=== PATIENT | male | born 1965 | race Caucasian/White ===

== ENCOUNTER 2016-12-07 16:06 | Emergency (ER) | payer OTHER ==
[~2016-12-07] VITALS: Ht 180.3 cm; Wt 102.8 kg
[2016-12-07 16:18] VITALS: TEMP 36.9; Ht 180.3 cm; Wt 102.8 kg
[2016-12-07] MEDS ORDERED: KETOROLAC TROMETHAMINE 60 MG/2 ML VIAL IM STA (16:57)
[2016-12-07] MEDS ORDERED: GLC500 PO (17:27)
--- NOTE | 2016-12-07 17:41 | EMERGENCY ROOM VISIT NOTE ---
ED Visit Note First contact with patient: 16:41 CHIEF COMPLAINT: Sciatica left side HISTORY OF PRESENT ILLNESS: This 51-year-old male patient presents to the emergency department, ambulatory, complaining of pain in the low back which began 3.5 months ago. The pain was gradual in onset, is now constant and worse with movement. The patient states the pain got very severe at that time and he was seen by his PCP and started on prednisone and physical therapy. He states he went to physical therapy for approximately 2 months, but was released because his pain was improving. He states he was feeling well and improving, however he continued to feel tightness in his back which is worse with lying flat. He states he has been normally sleeping in a recliner due to the decrease in his pain in that position. Over the past 2 days, the patient states he is feeling okay, so he moved into the bed in the middle the night. He states at that time, his pain began worsening. He does have an appointment scheduled for with his PCP. His PCP did state that if his symptoms do not get better, he may need to have an MRI performed. The patient describes the pain as constant, worse with position changes. He states it does shoot down the left leg and he has some numbness and tingling down the back of the leg. The pain has been worse and more constant than it was previously, however this is similar to previous pain he has had. He rates the pain 7/10. The patient has taken naproxen twice daily without relief of the pain. The patient denies any loss of control of their bowel or bladder functions. There has been no leg weakness, and no change in sensation. No nausea or vomiting or abdominal pain. No chest pain or shortness of breath. The patient has not had prior back injuries. No dysuria or increased urinary frequency. REVIEW OF SYSTEMS: A review of systems was performed with positives and pertinent negatives listed in the history of present illness. All other systems were reviewed and are negative. ALLERGIES: None MEDICATIONS: Metformin PMH: Diabetes SOCIAL HISTORY: The patient lives locally with family. He denies drug, alcohol , tobacco use. PHYSICAL EXAM: VITALS: Vitals are noted on the nurse's note and reviewed by myself. Vital signs stable. GENERAL: This is a 51-year-old white male, in no acute distress, nondiaphoretic , well-developed well-nourished. SKIN: The skin was without rashes, erythema, edema, or bruising. Capillary refill less than 2 seconds. NECK: Supple without nuchal rigidity. No cervical spine tenderness. No paraspinous muscle tenderness. HEART: Regular rate and rhythm without murmurs gallops or rubs. LUNGS: Clear to auscultation bilaterally without wheezes, rales or rhonchi. ABDOMEN: Positive bowel sounds x 4. Normal tympanic percussion. Soft, nontender, without masses or organomegaly. Davis sign negative. MUSCULOSKELETAL: No muscle atrophy, erythema, or edema noted of the back. There is no tenderness over the lumbar spinous processes. There is mild tenderness over the paraspinous muscles on the left. He does have tenderness over the left SI joint. There is no tenderness over the thoracic spine or paraspinous muscles. There are mild muscle spasms present. The patient is slow to move around with maximum tenderness with sitting from a lying position. Positives straight leg raise test on the left. NEURO: Patient was alert and oriented to person place and time. Normal sensation to light and sharp touch. Deep tendon reflexes 2+ in the lower extremities. Dorsalis pedis pulse 2+ bilaterally. Strength 5/5 and equal in the bilateral lower extremities. RADIOLOGY: X-Ray L-S Spine: L-SPINE MIN 4 VIEWS ROUTINE CLINICAL HISTORY: Low back pain radiating into the lower extremities. COMPARISON: None FINDINGS: Alignment of the lumbar spine is anatomic. No fracture or suspicious osseous lesion is present. Vertebral body heights are maintained. There is mild multilevel disc space narrowing and osteophytosis with vacuum disc phenomenon at L2-L3. There is mild multilevel facet arthrosis. IMPRESSION: 1. No acute lumbar spine fracture. 2. Mild multilevel degenerative disc disease and facet arthrosis of the lumbar spine. Electronically signed by: Aiden Francisco M.D. 12/07/2016 6:02 PM Dictated Date/Time: 12/07/2016 6:01 PM EMERGENCY DEPARTMENT COURSE: The patient was seen and evaluated as above. He does not present with any symptoms suspicious for cauda equina syndrome. The patient is moving around well, though in pain with movement. The patient and his are concerned because he has not had any imaging completed with his low back pain. The patient does have an appointment set up for , so I discussed with them obtaining lumbar spine x-rays to speed up the process in case he may need an MRI. He is instructed to continue to follow up with his PCP regarding chronic management of this discomfort. The patient was given 60 mg Toradol IM and did respond well to this medication. I offered to prescribe the patient a course of prednisone, but he declines, as it made his vision blurry and elevated his sugar due to his diabetes when he was previously on this medication. I offered naproxen, muscle relaxers, and gabapentin for nerve pain. The patient is in agreement with this plan. He will follow up with his PCP on at his appointment. Discharge instructions reviewed, and the patient was discharged home in good condition. DIFFERENTIAL DIAGNOSIS: Sciatica, fracture, sprain, strain, degenerative disc disease, disc protrusion, cauda equina syndrome, malignancy, and others DIAGNOSIS: Sciatica Current/Historical Medications Scheduled Cyclobenzaprine Hcl (Flexeril), 10 MG PO TID Gabapentin (Gabapentin), 1 CAP PO TID Metformin HCl (Metformin HCl), 1,000 MG PO BID Naproxen (Naprosyn), 500 MG PO BID Allergies Coded Allergies: No Known Allergies (Unverified , 12/07/16) Vital Signs Date Time Temp Pulse Resp B/P (MAP) Pulse Ox O2 Delivery O2 Flow Rate FiO2 12/07/16 18:30 68 20 135/97 98 12/07/16 16:18 36.9 75 20 164/91 99 Room Air Medications Administered Medications (Trade) Dose Ordered Sig/Rufina Route Start Time Stop Time Status Last Admin Dose Admin Ketorolac Tromethamine (Toradol Inj) 60 mg NOW STAT IM 12/07/16 16:57 12/07/16 16:58 DC 12/07/16 17:06 60 MG Naproxen (Naproxen 250MG Home Pack) 1 homepack UD ONCE PO 12/07/16 18:15 12/07/16 18:16 DC 12/07/16 18:28 1 HOMEPACK Cyclobenzaprine HCl (FLEXERIL 10MG Home Pack) 1 homepack UD ONCE PO 12/07/16 18:15 12/07/16 18:16 DC 12/07/16 18:28 1 HOMEPACK Gabapentin (Neurontin Cap) 300 mg NOW STAT PO 12/07/16 18:14 12/07/16 18:15 DC 12/07/16 18:28 300 MG Departure Information Impression Primary Impression: Sciatica Dispostion Home / Self-Care Condition GOOD Prescriptions Gabapentin (Gabapentin) 300 Mg Cap 1 CAP PO TID for 30 Days, #90 CAP Prov: Elizabeth Erazo PA-C 12/07/16 Cyclobenzaprine Hcl (FLEXERIL) 10 Mg Tab 10 MG PO TID, #15 TAB Prov: Elizabeth Erazo PA-C 12/07/16 Naproxen (Naprosyn) 500 Mg Tab 500 MG PO BID, #60 TAB Prov: Elizabeth Erazo PA-C 12/07/16 Referrals Simon Mehta M.D. (PCP) Patient Instructions ED Sciatica, My [facility] Additional Instructions You have been treated in the Emergency Department for Back Pain. You've been prescribed naproxen to be used twice daily for inflammation and pain. Please take this medication only as directed. Please do not take this medication with any other anti-inflammatory medications such as ibuprofen, Motrin, Advil, Aleve, naproxen. You have been prescribed gabapentin to be taken up to 3 times daily for nerve pain. Please use this medication only as instructed. Please take your first dose at bedtime, as this medication can make you sleepy. You have been prescribed Flexeril (cyclobenzaprine) 1 tabs orally, three times per day. Do NOT exceed 30 mg (3 tabs) per day. Take your first dose at bedtime as it can make you drowsy. Always take all medications as prescribed. For pain control, you can use the following [id number]-bdllqid medicines (if >12 yo): Ibuprofen(Motrin, Advil) may be used for fever or pain. Use 600mg every six hours as needed. Take with food. Avoid using more than 2400mg in a 24 hour period. Do not use 2400mg per day for more than three consecutive days without physician direction. Prolonged inappropriate use can lead to stomach upset or ulcers. (AND/OR) Acetaminophen(Tylenol) may be used for fever or pain. Use 1000mg every six hours as needed. Avoid using more than 3000mg in a 24 hour period. If this is an acute injury, ice can be applied to the area of pain for the first 3 days to help decrease pain and inflammation. After the first 3 days, a heating pad can be used over the area for continued soothing relief. You should schedule a follow-up appointment in 2-3 days with your Primary Care Provider for further evaluation and treatment of your back pain. Return to the Emergency Department if your current symptoms worsen despite treatment course outlined above, or if you develop any of the following symptoms : intractable pain despite aforementioned treatment course, loss of control of your bowel or bladder, numbness or tingling in your groin, or development of a fever. Problem Qualifiers Primary Impression: Sciatica Laterality: left Qualified Codes: M54.32 - Sciatica, left side
--- NOTE | 2016-12-07 18:04 | DIAGNOSTIC IMAGING REPORT ---
L-SPINE MIN 4 VIEWS ROUTINE CLINICAL HISTORY: Low back pain radiating into the lower extremities. COMPARISON: None FINDINGS: Alignment of the lumbar spine is anatomic. No fracture or suspicious osseous lesion is present. Vertebral body heights are maintained. There is mild multilevel disc space narrowing and osteophytosis with vacuum disc phenomenon at L2-L3. There is mild multilevel facet arthrosis. IMPRESSION: 1. No acute lumbar spine fracture. 2. Mild multilevel degenerative disc disease and facet arthrosis of the lumbar spine. Electronically signed by: Aiden Francisco M.D. 12/07/2016 6:02 PM Dictated Date/Time: 12/07/2016 6:01 PM
[2016-12-07] MEDS ORDERED: GABA1CAP4 PO (18:07)
[2016-12-07] MEDS ORDERED: NAPR-1169 PO (18:07)
[2016-12-07] MEDS ORDERED: CYCL10TA6 PO (18:07)
[2016-12-07] MEDS ORDERED: GABAPENTIN 300 MG CAP PO STA (18:14)
[2016-12-07] MEDS ORDERED: NAPROSYN HOME PACK 250 MG VIAL PO ONE (18:15)
[2016-12-07] MEDS ORDERED: FLEXERIL HOME PACK 10 MG VIAL PO ONE (18:15)
[2016-12-07 18:30] VITALS: BP 135/97; PULSE 68; O2SAT 98
== END 2016-12-07 18:32 | disposition home or self-care (01) ==
LOC: C.EDB 16:08 → C.EDD 18:32
DX: M54.30 Sciatica, unspecified side (principal); E11.9 Type 2 diabetes mellitus without complications; Z79.84 Long term (current) use of oral hypoglycemic drugs; Z79.899 Other long term (current) drug therapy

== ENCOUNTER → 2016-12-29 | Outpatient (CLI) | payer OTHER ==
[~2016-12-29] MED LIST: DOXY-300 PO; GABA-113 PO; GABA1CAP4 PO; GLC500 PO; NAPR-1169 PO
--- NOTE | 2016-12-29 08:13 | DIAGNOSTIC IMAGING REPORT ---
LUMBAR SPINE W/O CONTRAST CLINICAL HISTORY: 51 years-old Male with L LUMBAR RAIDUCLOPATHY. Chronic low back pain, worsened within the past 4 months. No reported trauma COMPARISON: Lumbar spine radiographs 12/07/2016. TECHNIQUE: Multiplanar, multi sequence MRI of the lumbar spine was performed without intravenous contrast. FINDINGS: No acute fracture or focal bone marrow edema. Signal within the cord is within normal limits. Conus medullaris terminates at L1. Multilevel discogenic degenerative changes are seen, most pronounced at L2-L5 as below. The large [id number] images demonstrate no gross abnormality of the paraspinal structures, abdomen or pelvis. T11-T12: Moderate intervertebral disc space narrowing with circumferential annular disc bulge, facet arthrosis and spondylitic spurring with mild central canal and mild left foraminal narrowing on the sagittal imaging alone. T12-L1: No central canal or neural foraminal stenosis. L1-L2: No central canal or neural foraminal stenosis. L2-L3: Moderate intervertebral disc space narrowing with posterior spondylitic spurring, circumferential annular disc bulge, ligamentum flavum thickening and mild to moderate facet arthrosis. There is flattening of the ventral thecal sac without significant central canal narrowing. There is mild bilateral inferior foraminal stenosis. L3-L4: Moderate intervertebral disc space narrowing with ligamentum flavum thickening and mild to moderate facet arthrosis with trace facet effusions. Broad-based posterior disc bulge is noted in addition to an annular fissure and central/left paracentral and left lateral recess disc extrusion which measures up to 0.6 x 2.0 x 1.1 cm in AP, transverse and craniocaudal dimensions nicely seen on image 9 of series 3 and image 15 of series 6 which causes severe left lateral recess, moderate central canal and moderate right foraminal narrowing. No significant left foraminal stenosis. Disc extrusion within the left lateral recess measures up to 10 x 10 mm abutting and displacing the adjacent left L4 nerve root. L4-L5: Moderate intervertebral disc space narrowing with circumferential annular disc bulge and broad-based central posterior disc protrusion which causes mild central canal stenosis. Moderate facet arthrosis with ligamentum flavum thickening and small facet effusions are also noted along with posterior spondylitic ridging. Mild to moderate right and mild left foraminal narrowing. L5-S1: Broad-based posterior disc bulge flattens the ventral thecal sac. Mild to moderate facet arthrosis with small facet effusions. There is mild right foraminal narrowing. Left foramen and central canal are patent. IMPRESSION: 1. Moderate intervertebral disc space narrowing at L3-L4 with broad-based posterior disc bulge, annular fissure and central/left paracentral and left lateral recess disc extrusion causes severe left lateral recess stenosis abutting and displacing the adjacent left L4 nerve root. There is also moderate central canal and moderate right foraminal stenosis at this level without significant left foraminal narrowing. 2. Additional discogenic degenerative changes at L2-L3 and L4-L5 as above with multilevel facet arthropathy. 3. No focal fracture or bone marrow edema. The above report was generated using voice recognition software. It may contain grammatical, syntax or spelling errors. Electronically signed by: Kaden Dyson M.D. 12/29/2016 8:12 AM Dictated Date/Time: 12/29/2016 7:49 AM
== END | disposition home or self-care (01) ==
LOC: C.MRI 06:46
PROVIDERS: ATTEND Internal Medicine
DX: M54.16 Radiculopathy, lumbar region (principal); M99.73 Connective tissue and disc stenosis of intervertebral foramina of lumbar region

== ENCOUNTER 2017-02-16 07:54 | Inpatient (IN) | payer OTHER ==
[~2017-02-16] VITALS: Ht 180.3 cm; Wt 105.0 kg
[~2017-02-16 07:54] MED LIST changes: -DOXY-300 PO; -GABA1CAP4 PO; -NAPR-1169 PO; +NAPR-22 PO
[2017-02-16] MEDS ORDERED: SODIUM CHLORIDE 0.9% 1000ML 1,000 ML IV STA (08:14)
[2017-02-16] MEDS ORDERED: NPR375 PO (08:22)
[2017-02-16] MEDS ORDERED: GLUCTAB7 PO (08:22)
[2017-02-16 08:23] LABS: BASO ABS # 0.01 K/uL (0-0.2); HEMATOCRIT 49.7 % (42-52); HEMOGLOBIN 17.7 g/dL (14.0-18.0); IG# 0.09 K/uL (0.00-0.02); LYMPH % 5.3 %; LYMPH ABS # 1.12 K/uL (1.2-3.4); MEAN CELL VOLUME 86.1 fL (80-100); MEAN CORPUSCULAR HEMOGLOBIN 30.7 pg (25-34); MEAN CORPUSCULAR HGB CONC 35.6 g/dl (32-36); MEAN PLATELET VOLUME 10.9 fL (7.4-10.4); MONO ABS # 1.05 K/uL (0.11-0.59); NEUT % 89.3 %; PLATELET COUNT 212 K/uL (130-400); RED CELL DISTRIBUTION WIDTH CV 13.1 % (11.5-14.5); RED CELL DISTRIBUTION WIDTH SD 41.3 fL (36.4-46.3); WHITE BLOOD COUNT 21.07 K/uL (4.8-10.8)
[2017-02-16] MEDS ORDERED: ONDANSETRON INJ 2 MG/ML 2 ML VIAL IV STA (08:29)
[2017-02-16] MEDS ORDERED: MoRPHine SULFATE 4 MG/ML 1 ML CARP\\VIAL IV STA (08:29)
[2017-02-16 08:33] LABS: ALBUMIN 4.4 gm/dl (3.4-5.0); CALCIUM 9.4 mg/dl (8.5-10.1); CREATININE 1.02 mg/dl (0.60-1.40); POTASSIUM 3.9 mmol/L (3.5-5.1)
[2017-02-16 08:36] LABS: TOTAL PROTEIN 8.5 gm/dl (6.4-8.2)
[2017-02-16] MEDS ORDERED: OPTIRAY 320 IV PRN (09:15)
[2017-02-16] MEDS: MoRPHine SULFATE 4 MG/ML 1 ML CARP\\VIAL IV PRN ×3 (10:07→14:41)
--- NOTE | 2017-02-16 11:25 | DIAGNOSTIC IMAGING REPORT ---
ABD/PELVIS IV AND ORAL CONT CLINICAL HISTORY: 51 years-old Male presenting with LLQ ABDOMINAL PAIN. TECHNIQUE: Multidetector CT of the abdomen and pelvis was performed after the administration of oral and intravenous contrast. IV contrast: 93 mL of Optiray 320. A dose lowering technique was used consistent with the principles of ALARA (as low as reasonably achievable). COMPARISON: None. CT DOSE (mGy.cm): The estimated cumulative dose is 995.13 mGy.cm. FINDINGS: Infusion Rn topogram: Unremarkable. Lung bases: Minimal basilar opacities, likely atelectasis. Normal heart size. No pericardial or pleural effusion. Liver: Normal morphology. Density consistent with hepatic steatosis. No focal lesion. Patent hepatic vasculature. Biliary: No intrahepatic or extrahepatic biliary ductal dilatation. Normal gallbladder. Pancreas: Normal. Spleen: Normal. Adrenal glands: Normal. Kidneys and ureters: Normal. No hydronephrosis. Bladder: Mild circumferential bladder wall thickening. Pelvic organs: Prostate enlargement likely secondary to benign prostatic hyperplasia. Bowel: Moderate stool burden. Diverticulosis of the proximal sigmoid colon with extensive pericolonic fat stranding. Several foci of gas appear frankly extraluminal (for example series 3 image 36). A gas containing collection measuring 2.1 cm abuts the serosa of the sigmoid colon (see series 3 image 377) diverticulosis of the descending colon also noted without evidence of inflammatory change. The appendix is normal. No bowel obstruction. Small hiatal hernia. Peritoneal cavity: Focal gas containing collection adjacent to the sigmoid colon. No free fluid. Lymph nodes: Numerous scattered retroperitoneal and mesenteric subcentimeter lymph nodes, likely reactive. Vasculature: Atherosclerosis of the normal caliber abdominal aorta. IVC patent. Abdominal wall: Small fat-containing umbilical hernia. Focal low density 3.5 cm collection abutting the cutis and within the subcutaneous fat of the left flank (series 3 image 50), likely sebaceous cyst. Musculoskeletal: Normal. IMPRESSION: 1. Findings consistent with acute complicated diverticulitis. A focal gas-containing collection measuring 2.1 cm abuts the sigmoid serosa. This could represent a loculated extraluminal gas or developing abscess. Multiple other foci of regional loculated extraluminal gas without leonardo free pneumoperitoneum. 2. Circumferential bladder wall thickening could indicate cystitis, although this may more likely be be secondarily reactive to the adjacent diverticulitis. 3. Hepatic steatosis. Electronically signed by: Pillo Aguilera M.D. 02/16/2017 11:24 AM Dictated Date/Time: 02/16/2017 11:17 AM
[2017-02-16] MEDS ORDERED: PIPERACILLIN/TAZOBACTAM 4.5 GM/100ML D5W IV STA (12:24)
[2017-02-16 13:48] VITALS: O2SAT 98; BMI 32.3
--- NOTE | 2017-02-16 13:48 | NUR ---
A/ID: 51 year old male in ED. c/o abdominal pain. Medicated in ED, now 04/04. WBCs-21.07. Possible admission/observation. Admission Assessment done. Code Word/Fall Agreement reviewed with patient and significant other and completed. Continued care in ED by JOIE Alvarez.
[2017-02-16] MEDS ORDERED: CEFEPIME IV 2,000 MG in DEXTROSE 5% 100ML 100 ML IV STA (13:58)
[2017-02-16] MEDS ORDERED: CONSULT PHARMACY STA (13:58)
[2017-02-16] MEDS ORDERED: VANCOMYCIN IV 1,000 MG in SODIUM CHLORIDE 0.9% 250ML 250 ML IV STA (13:58)
[2017-02-16] MEDS ORDERED: GLUCOSE 10 TABS/TUBE PO PRN (14:00)
[2017-02-16] MEDS ORDERED: GLUCOSE 40% GEL 15 GM TUBE PO PRN (14:00)
[2017-02-16] MEDS ORDERED: ONDANSETRON INJ 2 MG/ML 2 ML VIAL IV PRN (14:00)
[2017-02-16] MEDS ORDERED: GLUCAGON FOR INJ 1 MG VIAL SQ PRN (14:00)
[2017-02-16] MEDS ORDERED: DEXTROSE 50% 50 ML SYR IV PRN (14:00)
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
--- NOTE | 2017-02-16 14:57 | Medical Consult ---
Consultation Date of Consultation: Feb 16, 2017. Attending Physician: Reason for Consultation: Acute Complicated Diverticulitis History of Present Illness 51-year-old male with past medical history significant for Type 2 diabetes presented to [facility] this AM after a several hour history of lower abdominal pain. Patient states that he woke up early yesterday morning with pain in his lower abdomen, under umbilicus, that started to radiate to left lower quadrant. He states that he sat around the house for a while, laying on the couch, to see if the pain would go away. At first, it was just a dull ache, but as the day went on, the pain became sharp and constant. Reports that he took some Naproxen, which he has at home for sciatica, to help with the pain- helped somewhat. He denies nausea or vomiting. Denies changes in bowel habits. Denies diarrhea or constipation. No subjective fevers or chills at home. When asked if he ever had this pain before, he states that it is reminiscent of pain that he had back in 1998 when he was diagnosed with a small bowel obstruction. He reports that he was not hospitalized for the small bowel obstruction and that it was treated with conservative measures at home. Patient denies ever having colonoscopy. Last meal was yesterday at 2PM. Past Medical/Surgical History Medical Problems: (1) Erythema migrans (Lyme disease) Status: Acute (2) Sciatica Status: Acute (3) Tick bite Status: Acute Surgical history- denies surgical history. Family History FH: diabetes mellitus Social History Smoking Status: Never Smoker Allergies Coded Allergies: No Known Allergies (Unverified , 02/16/17) Current Inpatient Medications Current Inpatient Medications Medications (Trade) Dose Ordered Sig/Rufina Route Start Time Stop Time Status Last Admin Dose Admin Ioversol (Optiray 320) 100 ml UD PRN IV 02/16/17 09:15 02/20/17 09:14 Morphine Sulfate (MoRPHine SULFATE INJ) 4 mg Q30M PRN IV 02/16/17 10:00 03/02/17 09:59 02/16/17 12:33 4 MG Review of Systems Constitutional: No fever, No chills, No weight loss Abdomen: + pain (improving. ), No nausea, No vomiting, No diarrhea, No constipation Physical Exam Date Time Temp Pulse Resp B/P (MAP) Pulse Ox O2 Delivery O2 Flow Rate FiO2 02/16/17 12:28 80 18 129/92 98 Room Air 02/16/17 07:56 37.1 124 18 171/93 97 General Appearance: WD/WN, no apparent distress Head: normocephalic, atraumatic Respiratory/Chest: no respiratory distress, no accessory muscle use Abdomen/GI: soft, + pertinent finding (tender to palpation in left lower quadrant. ) Skin: normal color, warm/dry, no rash Laboratory Results Last 24 Hours Test 02/16/17 08:10 02/16/17 08:15 White Blood Count 21.07 K/uL Red Blood Count 5.77 M/uL Hemoglobin 17.7 g/dL Hematocrit 49.7 % Mean Corpuscular Volume 86.1 fL Mean Corpuscular Hemoglobin 30.7 pg Mean Corpuscular Hemoglobin Concent 35.6 g/dl Platelet Count 212 K/uL Mean Platelet Volume 10.9 fL Neutrophils (%) (Auto) 89.3 % Lymphocytes (%) (Auto) 5.3 % Monocytes (%) (Auto) 5.0 % Eosinophils (%) (Auto) 0.0 % Basophils (%) (Auto) 0.0 % Neutrophils # (Auto) 18.80 K/uL Lymphocytes # (Auto) 1.12 K/uL Monocytes # (Auto) 1.05 K/uL Eosinophils # (Auto) 0.00 K/uL Basophils # (Auto) 0.01 K/uL RDW Standard Deviation 41.3 fL RDW Coefficient of Variation 13.1 % Immature Granulocyte % (Auto) 0.4 % Immature Granulocyte # (Auto) 0.09 K/uL Sodium Level 134 mmol/L Potassium Level 3.9 mmol/L Chloride Level 99 mmol/L Carbon Dioxide Level 23 mmol/L Anion Gap 12.0 mmol/L Blood Urea Nitrogen 10 mg/dl Creatinine 1.02 mg/dl Est Creatinine Clear Calc Drug Dose 103.3 ml/min Estimated GFR () 96.8 Estimated GFR (Non- 83.5 BUN/Creatinine Ratio 9.6 Random Glucose 235 mg/dl Calcium Level 9.4 mg/dl Total Bilirubin 1.0 mg/dl Direct Bilirubin 0.2 mg/dl Aspartate Amino Transf (AST/SGOT) 18 U/L Alanine Aminotransferase (ALT/SGPT) 32 U/L Alkaline Phosphatase 71 U/L Total Protein 8.5 gm/dl Albumin 4.4 gm/dl Lipase 119 U/L Urine Color YELLOW Urine Appearance CLEAR Urine pH 7.5 Urine Specific [place] 1.027 Urine Protein NEG Urine Glucose (UA) 3+ Urine Ketones 3+ Urine Occult Blood NEG Urine Nitrite NEG Urine Bilirubin NEG Urine Urobilinogen NEG Urine Leukocyte Esterase NEG ABD/PELVIS IV AND ORAL CONT CLINICAL HISTORY: 51 years-old Male presenting with LLQ ABDOMINAL PAIN. TECHNIQUE: Multidetector CT of the abdomen and pelvis was performed after the administration of oral and intravenous contrast. IV contrast: 93 mL of Optiray 320. A dose lowering technique was used consistent with the principles of ALARA (as low as reasonably achievable). COMPARISON: None. CT DOSE (mGy.cm): The estimated cumulative dose is 995.13 mGy.cm. 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 Lung bases: Minimal basilar opacities, likely atelectasis. Normal heart size. No pericardial or pleural effusion. Liver: Normal morphology. Density consistent with hepatic steatosis. No focal lesion. Patent hepatic vasculature. Biliary: No intrahepatic or extrahepatic biliary ductal dilatation. Normal gallbladder. Pancreas: Normal. Spleen: Normal. Adrenal glands: Normal. Kidneys and ureters: Normal. No hydronephrosis. Bladder: Mild circumferential bladder wall thickening. Pelvic organs: Prostate enlargement likely secondary to benign prostatic hyperplasia. Bowel: Moderate stool burden. Diverticulosis of the proximal sigmoid colon with extensive pericolonic fat stranding. Several foci of gas appear frankly extraluminal (for example series 3 image 36). A gas containing collection measuring 2.1 cm abuts the serosa of the sigmoid colon (see series 3 image 377) diverticulosis of the descending colon also noted without evidence of inflammatory change. The appendix is normal. No bowel obstruction. Small hiatal hernia. Peritoneal cavity: Focal gas containing collection adjacent to the sigmoid colon. No free fluid. Lymph nodes: Numerous scattered retroperitoneal and mesenteric subcentimeter lymph nodes, likely reactive. Vasculature: Atherosclerosis of the normal caliber abdominal aorta. IVC patent. Abdominal wall: Small fat-containing umbilical hernia. Focal low density 3.5 cm collection abutting the cutis and within the subcutaneous fat of the left flank (series 3 image 50), likely sebaceous cyst. Musculoskeletal: Normal. IMPRESSION: 1. Findings consistent with acute complicated diverticulitis. A focal gas-containing collection measuring 2.1 cm abuts the sigmoid serosa. This could represent a loculated extraluminal gas or developing abscess. Multiple other foci of regional loculated extraluminal gas without leonardo free pneumoperitoneum. 2. Circumferential bladder wall thickening could indicate cystitis, although this may more likely be be secondarily reactive to the adjacent diverticulitis. 3. Hepatic steatosis. Electronically signed by: Pillo Aguilera M.D. 02/16/2017 11:24 AM Dictated Date/Time: 02/16/2017 11:17 AM Assessment & Plan 51-year-old male with CT findings consistent with acute complicated diverticulitis. Focal gas-containing collection measuring 2.1 abuts the sigmoid serosa. Loculated extraluminal gas or developing abscess? Hepatic steatosis. Patient seen and examined with Dr. Price. CT scan reviewed. WBC elevated at 21.07 Pain controlled at this time. Admit to Hospitalist service- Continue inpatient abx. No indication for surgical intervention at this time. Keep NPO, except sips and chips in case surgical intervention becomes necessary. Discussed need for outpatient colonoscopy in about 6 weeks after acute episode. Will require outpatient antibiotics. Patient seen and examined, imaging and labs reviewed, agree with above. 51-year -old male with first occurrence of diverticulitis with small contained perforation, no evidence of peritonitis or abscess at this time. No indication for emergent surgical intervention. Recommend admission to medicine, IV antibiotics, nothing by mouth except for sips and chips. We'll slowly advance diet once white blood cell count normalizes and the patient is afebrile, and his abdominal pain begins to improve. The plan of care was discussed with the patient in the main service, all questions are answered, the patient agreed with the plan of care as stated. Adriel Price, DO
[2017-02-16 15:25] VITALS: BP 146/88; PULSE 94; TEMP 37.1; O2SAT 93
[2017-02-16] MEDS ORDERED: PIPERACILL/TAZOBAC CONSULT ACTIVE PRN (15:30)
[2017-02-16] MEDS ORDERED: FLUCONAZOLE CONSULT ACTIVE PRN (15:30)
[2017-02-16] MEDS ORDERED: VANCOMYCIN CONSULT ACTIVE PRN (15:30)
[2017-02-16 15:46] LABS: CALCIUM 8.9 mg/dl (8.5-10.1); CREATININE 1.03 mg/dl (0.60-1.40); POTASSIUM 3.9 mmol/L (3.5-5.1)
[2017-02-16] MEDS ORDERED: INSULIN ASPART 100 UNITS/ML 3 ML PEN SC SCH (16:00)
[2017-02-16] MEDS ORDERED: VANCOMYCIN IV 2,500 MG in SODIUM CHLORIDE 0.9% 500ML 500 ML IV ONE (16:15)
--- NOTE | 2017-02-16 16:17 | EMERGENCY ROOM VISIT NOTE ---
History First contact with patient: 07:58 Chief Complaint: ABDOMINAL PAIN Stated Complaint: LOWER STOMACH PAINS FOR PAST 30 HRS Nursing Triage Summary: pt to the ED with c/o lower abd pains since 4 am yesterday and last night got more sharp no n/v/d no urinary complaints c/o having chills and sweats History of Present Illness The patient is a 51 year old male who presents to the Emergency Room with complaints of lower central and left lower quadrant abdominal pain. The patient reports that the pain started yesterday morning, awakening him from sleep. The patient reports that the pain initially was a dull constant ache that is now becoming sharp. It does not radiate into the back or testicle. He denies any recent diarrhea, constipation or urinary symptoms. The patient has not had a colonoscopy. He denies any nausea or vomiting. He has been having chills and sweats, but has not checked his temperature at home. The patient denies any prior history of kidney stones. The patient does have a history of type 2 diabetes, and is taking Glucophage. The patient currently rates his discomfort a 7 out of 10. Review of Systems HEENT: Denies dizziness, visual problems, hearing loss, tinnitus. Denies difficulty swallowing or oral lesions. PULMONARY: Denies cough, shortness of breath, sputum production or hemoptysis. CARDIOVASCULAR: Denies chest pain, palpitations, dyspnea on exertion, orthopnea or peripheral edema. GASTROINTESTINAL: Denies diarrhea, constipation, nausea or vomiting, otherwise see history of present illness. GENITOURINARY: Denies dysuria, frequency, urgency or nocturia. NEUROLOGIC: Denies history of epilepsy, CVA, TIA or chronic headaches. MUSCULOSKELETAL: Denies history of joint tenderness/swelling. SKIN: Denies rashes or lesions. PSYCHIATRIC: Denies history of depression or mental illness. ENDOCRINE: History of diabetes. Denies thyroid disorders. Past Medical/Surgical History Medical Problems: (1) Diverticulitis of both large and small intestine with perforation (2) Lyme Disease, Unspecified (3) Radiculopathy, Lumbar Region (4) Tobacco Use Disorder Surgical Problems: (1) No history of previous surgery Family History FH: diabetes mellitus Social History Smoking Status: Never Smoker Alcohol Use: occasionally Marital Status: Housing Status: lives with family Occupation Status: employed Current/Historical Medications Scheduled Kbnawdefgqw-Prpvmmqjgxk-Odg C- (Glucosamine Chondroitin), 1 TAB PO BID Metformin HCl (Metformin HCl), 500 MG PO BID Naproxen Tab (Naprosyn), 375 MG PO BID Physical Exam Vital Signs Date Time Temp Pulse Resp B/P (MAP) Pulse Ox O2 Delivery O2 Flow Rate FiO2 02/16/17 13:48 98 Room Air 02/16/17 12:28 80 18 129/92 98 Room Air 02/16/17 07:56 37.1 124 18 171/93 97 Physical Exam CONSTITUTIONAL: Healthy and well nourished. Alert and oriented X 3 with positive affect. Patient appears in mild discomfort from pain. HEENT: Normocephalic, atraumatic. Pupils equal, round and reactive. No scleral icterus or conjunctival injection/pallor. NECK: Full active range of motion without discomfort. RESPIRATORY: Clear to auscultation bilaterally with no wheezing, crackles, rhonchi or stridor. CARDIOVASCULAR: Regular rate and rhythm with no murmurs, rubs or gallops. GASTROINTESTINAL: Bowel sounds present in all quadrants. Patient has lower central and left lower quadrant tenderness to palpation without rigidity, guarding or rebound. Negative CVA tenderness. Negative McBurney's point tenderness. MUSCULOSKELETAL: Full range of motion of all joints without discomfort. Negative logroll of the left hip. Negative straight leg raise. INTEGUMENTARY: No rash or other significant dermatologic conditions noted. NEUROLOGIC: No focal neurologic deficits noted. Medical Decision & Procedures ER Provider Diagnostic Interpretation: Enhanced CT of the abdomen and pelvis shows the following: ABD/PELVIS IV AND ORAL CONT CLINICAL HISTORY: 51 years-old Male presenting with LLQ ABDOMINAL PAIN. TECHNIQUE: Multidetector CT of the abdomen and pelvis was performed after the administration of oral and intravenous contrast. IV contrast: 93 mL of Optiray 320. A dose lowering technique was used consistent with the principles of ALARA (as low as reasonably achievable). COMPARISON: None. CT DOSE (mGy.cm): The estimated cumulative dose is 995.13 mGy.cm. FINDINGS: Supply Coordinator topogram: Unremarkable. Lung bases: Minimal basilar opacities, likely atelectasis. Normal heart size. No pericardial or pleural effusion. Liver: Normal morphology. Density consistent with hepatic steatosis. No focal lesion. Patent hepatic vasculature. Biliary: No intrahepatic or extrahepatic biliary ductal dilatation. Normal gallbladder. Pancreas: Normal. Spleen: Normal. Adrenal glands: Normal. Kidneys and ureters: Normal. No hydronephrosis. Bladder: Mild circumferential bladder wall thickening. Pelvic organs: Prostate enlargement likely secondary to benign prostatic hyperplasia. Bowel: Moderate stool burden. Diverticulosis of the proximal sigmoid colon with extensive pericolonic fat stranding. Several foci of gas appear frankly extraluminal (for example series 3 image 36). A gas containing collection measuring 2.1 cm abuts the serosa of the sigmoid colon (see series 3 image 377) diverticulosis of the descending colon also noted without evidence of inflammatory change. The appendix is normal. No bowel obstruction. Small hiatal hernia. Peritoneal cavity: Focal gas containing collection adjacent to the sigmoid colon. No free fluid. Lymph nodes: Numerous scattered retroperitoneal and mesenteric subcentimeter lymph nodes, likely reactive. Vasculature: Atherosclerosis of the normal caliber abdominal aorta. IVC patent. Abdominal wall: Small fat-containing umbilical hernia. Focal low density 3.5 cm collection abutting the cutis and within the subcutaneous fat of the left flank (series 3 image 50), likely sebaceous cyst. Musculoskeletal: Normal. IMPRESSION: 1. Findings consistent with acute complicated diverticulitis. A focal gas-containing collection measuring 2.1 cm abuts the sigmoid serosa. This could represent a loculated extraluminal gas or developing abscess. Multiple other foci of regional loculated extraluminal gas without leonardo free pneumoperitoneum. 2. Circumferential bladder wall thickening could indicate cystitis, although this may more likely be be secondarily reactive to the adjacent diverticulitis. 3. Hepatic steatosis. Laboratory Results 02/16/17 08:10 Red Blood Count 5.77, Mean Corpuscular Volume 86.1, Mean Corpuscular Hemoglobin 30.7, Mean Corpuscular Hemoglobin Concent 35.6, Mean Platelet Volume 10.9, Neutrophils (%) (Auto) 89.3, Lymphocytes (%) (Auto) 5.3, Monocytes (%) (Auto) 5.0, Eosinophils (%) (Auto) 0.0, Basophils (%) (Auto) 0.0, Neutrophils # (Auto) 18.80, Lymphocytes # (Auto) 1.12, Monocytes # (Auto) 1.05, Eosinophils # (Auto) 0.00, Basophils # (Auto) 0.01 Test 02/16/17 08:10 02/16/17 08:15 White Blood Count 21.07 K/uL (4.8-10.8) Red Blood Count 5.77 M/uL (4.7-6.1) Hemoglobin 17.7 g/dL (14.0-18.0) Hematocrit 49.7 % (42-52) Mean Corpuscular Volume 86.1 fL (80-100) Mean Corpuscular Hemoglobin 30.7 pg (25-34) Mean Corpuscular Hemoglobin Concent 35.6 g/dl (32-36) Platelet Count 212 K/uL (130-400) Mean Platelet Volume 10.9 fL (7.4-10.4) Neutrophils (%) (Auto) 89.3 % Lymphocytes (%) (Auto) 5.3 % Monocytes (%) (Auto) 5.0 % Eosinophils (%) (Auto) 0.0 % Basophils (%) (Auto) 0.0 % Neutrophils # (Auto) 18.80 K/uL (1.4-6.5) Lymphocytes # (Auto) 1.12 K/uL (1.2-3.4) Monocytes # (Auto) 1.05 K/uL (0.11-0.59) Eosinophils # (Auto) 0.00 K/uL (0-0.5) Basophils # (Auto) 0.01 K/uL (0-0.2) RDW Standard Deviation 41.3 fL (36.4-46.3) RDW Coefficient of Variation 13.1 % (11.5-14.5) Immature Granulocyte % (Auto) 0.4 % Immature Granulocyte # (Auto) 0.09 K/uL (0.00-0.02) Prothrombin Time 10.1 SECONDS (9.0-12.0) Prothromb Time International Ratio 1.0 (0.9-1.1) Total Bilirubin 1.0 mg/dl (0.2-1) Direct Bilirubin 0.2 mg/dl (0-0.2) Aspartate Amino Transf (AST/SGOT) 18 U/L (15-37) Alanine Aminotransferase (ALT/SGPT) 32 U/L (12-78) Alkaline Phosphatase 71 U/L (45-117) Total Protein 8.5 gm/dl (6.4-8.2) Albumin 4.4 gm/dl (3.4-5.0) Lipase 119 U/L (73-393) Hepatitis C Antibody Screen NEG (NEG) Urine Color YELLOW Urine Appearance CLEAR (CLEAR) Urine pH 7.5 (4.5-7.5) Urine Specific [place] 1.027 (1.000-1.030) Urine Protein NEG (NEG) Urine Glucose (UA) 3+ (NEG) Urine Ketones 3+ (NEG) Urine Occult Blood NEG (NEG) Urine Nitrite NEG (NEG) Urine Bilirubin NEG (NEG) Urine Urobilinogen NEG (NEG) Urine Leukocyte Esterase NEG (NEG) The above labs were reviewed. The patient does have a markedly leukocytosis with left shift. Glucose is 235. Urinalysis shows 3+ ketonuria without signs of infection or hematuria. LFTs and lipase are normal. Medications Administered Medications (Trade) Dose Ordered Sig/Rufina Route Start Time Stop Time Status Last Admin Dose Admin Sodium Chloride 1,000 ml @ 999 mls/hr Q1H1M STAT IV 02/16/17 08:14 02/16/17 09:14 DC 02/16/17 08:37 999 MLS/HR Morphine Sulfate (MoRPHine SULFATE INJ) 4 mg NOW STAT IV 02/16/17 08:29 02/16/17 08:31 DC 02/16/17 08:45 4 MG Ondansetron HCl (Zofran Inj) 4 mg NOW STAT IV 02/16/17 08:29 02/16/17 08:31 DC 02/16/17 08:44 4 MG Morphine Sulfate (MoRPHine SULFATE INJ) 4 mg Q30M PRN IV 02/16/17 10:00 03/02/17 09:59 02/16/17 14:41 4 MG Piperacillin Sod/ Tazobactam Sod (Zosyn Iv) 4.5 gm NOW STAT IV 02/16/17 12:24 02/16/17 12:25 DC 02/16/17 12:24 4.5 GM ED Course Patient history and physical exam were performed. Nurse's notes were reviewed. Vital signs were reviewed. The patient is afebrile but tachycardic with a rate of 124 bpm. The patient is also hypertensive with a blood pressure 171/ 93. IV access was established and labs were drawn. The patient refused any analgesics or antiemetics on initial exam. Review of labs shows a markedly leukocytosis with left shift. Glucose is elevated, otherwise remaining labs are normal. Urinalysis is not suggestive of infection. When the patient got up to provide a urine sample, he did complain of worsening pain. He was administered IV morphine and Zofran with good pain relief. The patient tolerated oral contrast without any complications. Enhanced CT of the abdomen and pelvis is concerning for possible small abscess formation secondary to diverticulitis. The case was further discussed with Dr. Murillo, who recommended hospitalist consultation. The case was discussed further with the [facility] hospitalist service. The patient was ordered Zosyn 4.5 g IV infusion. The hospitalist service also asked that I discussed the case further with the on-call surgeon. I therefore discussed this case further with Dr. Price who indicated no surgical intervention at this time, and admission for IV antibiotics. Please see their dictations for further treatment and final disposition. Medical Decision Patient presents with complaint of lower central and left lower quadrant abdominal pain. Workup today is suggestive of an acute diverticulitis with possible early abscess formation. There does not appear to be any free air consistent with perforation at this time. The patient has a marked leukocytosis. The patient is afebrile. Medication Reconcilliation Current Medication List: was personally reviewed by sd Blood Pressure Screening Patient's blood pressure: Elevated blood pressure Blood pressure disposition: Referred to PCP Impression Primary Impression: Acute diverticulitis Departure Information Referrals Simon Mehta M.D. (PCP) Patient Instructions My [facility]
[2017-02-16] MEDS: FLUCONAZOLE / NSS 200 MG in PREMIXED NSS 100 ML IV SCH (16:28)
[2017-02-16] MEDS: MoRPHine SULFATE 2 MG/ML CARP IV PRN ×2 (16:28→20:08)
[2017-02-16] MEDS: INSULIN ASPART 100 UNITS/ML 3 ML PEN SC SCH ×2 (17:20→19:55)
[2017-02-16] MEDS: PIPERACILL/TAZOBAC IV 3.375 GM in DEXTROSE 5% 100ML 100 ML IV SCH (19:47)
[2017-02-16] MEDS ORDERED: NURSING VERBAL MED ORDER ONE (22:00)
[2017-02-16] MEDS ORDERED: HYDROmorphone INJ 1 MG/ML SYR IV PRN (22:15)
--- NOTE | 2017-02-16 22:20 | NUR ---
ID note: Pt A&Ox4. Saline locked to right posterior forearm, intermittent antibiotics infusing per MD order, site clear. Pain being controlled with IV pain medications prn. Lungs clear to auscultation bilaterally on RA. OOB with minimal assist to bathroom, voiding in toilet without difficulty. Bowel sounds hypoactive, denies passing flatus. NPO except chips and sips. D/C plan uncertain at this time. at bedside. Call zepeda in reach.
[2017-02-16 22:50] VITALS: BP 138/89; PULSE 92; TEMP 37.1; O2SAT 92
[2017-02-17] MEDS: INSULIN ASPART 100 UNITS/ML 3 ML PEN SC SCH ×5 (00:38→21:10)
[2017-02-17] MEDS ORDERED: NURSING VERBAL MED ORDER ONE ×4 (01:15→16:00)
[2017-02-17] MEDS: PIPERACILL/TAZOBAC IV 3.375 GM in DEXTROSE 5% 100ML 100 ML IV SCH ×3 (01:41→18:39)
[2017-02-17] MEDS: VANCOMYCIN IV 1,750 MG in SODIUM CHLORIDE 0.9% 500ML 500 ML IV SCH ×3 (01:41→22:06)
[2017-02-17] MEDS: HYDROmorphone INJ 1 MG/ML SYR IV PRN ×8 (01:41→23:59)
[2017-02-17 06:43] VITALS: BP 142/93; PULSE 72; TEMP 36.9; O2SAT 94
[2017-02-17 06:56] LABS: ALBUMIN 3.2 gm/dl (3.4-5.0); CALCIUM 8.3 mg/dl (8.5-10.1); CREATININE 1.04 mg/dl (0.60-1.40); POTASSIUM 3.9 mmol/L (3.5-5.1)
[2017-02-17 07:07] LABS: BASO % 0.2 %; BASO ABS # 0.02 K/uL (0-0.2); EOS % 0.2 %; EOS ABS # 0.03 K/uL (0-0.5); HEMATOCRIT 41.9 % (42-52); HEMOGLOBIN 14.6 g/dL (14.0-18.0); IG# 0.04 K/uL (0.00-0.02); LYMPH % 11.3 %; LYMPH ABS # 1.49 K/uL (1.2-3.4); MEAN CELL VOLUME 88.8 fL (80-100); MEAN CORPUSCULAR HEMOGLOBIN 30.9 pg (25-34); MEAN CORPUSCULAR HGB CONC 34.8 g/dl (32-36); MEAN PLATELET VOLUME 10.8 fL (7.4-10.4); MONO % 4.2 %; MONO ABS # 0.55 K/uL (0.11-0.59); NEUT % 83.8 %; NEUT ABS # 11.09 K/uL (1.4-6.5); PLATELET COUNT 183 K/uL (130-400); RED CELL DISTRIBUTION WIDTH CV 13.4 % (11.5-14.5); RED CELL DISTRIBUTION WIDTH SD 43.5 fL (36.4-46.3); WHITE BLOOD COUNT 13.22 K/uL (4.8-10.8)
[2017-02-17 07:49] LABS: HEMOGLOBIN A1C 7.7 % (4.5-5.6)
[2017-02-17] MEDS: ENOXAPARIN 40 MG/0.4 ML SYR SQ SCH (08:33)
[2017-02-17] MEDS ORDERED: TPN/PPN CONSULT PHARMACY PRN (09:00)
--- NOTE | 2017-02-17 09:15 | Surgery Progress Note ---
Surgery Progress Note Date of Service Feb 17, 2017. Subjective + feeling well, + ambulating, + flatus, + pain controlled, No bowel movement, No nausea, No vomiting Objective Vital Signs: Date Time Temp Pulse Resp B/P (MAP) Pulse Ox O2 Delivery O2 Flow Rate FiO2 02/17/17 07:20 Room Air 02/17/17 06:43 36.9 72 19 142/93 (109) 94 Room Air 02/17/17 00:30 Room Air 02/16/17 22:50 37.1 92 18 138/89 (105) 92 Room Air 02/16/17 15:25 Room Air 02/16/17 15:25 37.1 94 18 146/88 (107) 93 Room Air 02/16/17 15:19 37.1 80 18 129/92 98 02/16/17 13:48 98 Room Air 02/16/17 12:28 80 18 129/92 98 Room Air General Appearance: WD/WN, no apparent distress Abdomen: + pertinent finding (tender with palpation in left lower quadrant, mild distention. ) Laboratory Results: Results Past 24 Hours Test 02/16/17 15:00 02/16/17 16:00 02/16/17 19:52 02/16/17 23:46 Range/Units Sodium Level 136 136-145 mmol/L Potassium Level 3.9 3.5-5.1 mmol/L Chloride Level 101 98-107 mmol/L Carbon Dioxide Level 27 21-32 mmol/L Anion Gap 8.0 3-11 mmol/L Blood Urea Nitrogen 9 7-18 mg/dl Creatinine 1.03 0.60-1.40 mg/dl Est Creatinine Clear Calc Drug Dose 102.2 ml/min Estimated GFR () 95.7 Estimated GFR (Non- 82.5 BUN/Creatinine Ratio 8.6 10-20 Random Glucose 195 70-99 mg/dl Calcium Level 8.9 8.5-10.1 mg/dl Bedside Glucose 211 145 161 70-99 mg/dl Test 02/17/17 03:49 02/17/17 06:09 02/17/17 06:12 02/17/17 08:28 Range/Units Bedside Glucose 153 142 70-99 mg/dl Sodium Level 134 136-145 mmol/L Potassium Level 3.9 3.5-5.1 mmol/L Chloride Level 101 98-107 mmol/L Carbon Dioxide Level 27 21-32 mmol/L Anion Gap 6.0 3-11 mmol/L Blood Urea Nitrogen 11 7-18 mg/dl Creatinine 1.04 0.60-1.40 mg/dl Est Creatinine Clear Calc Drug Dose 101.3 ml/min Estimated GFR () 94.6 Estimated GFR (Non- 81.6 BUN/Creatinine Ratio 10.1 10-20 Random Glucose 162 70-99 mg/dl Calcium Level 8.3 8.5-10.1 mg/dl Magnesium Level 2.1 1.8-2.4 mg/dl Total Bilirubin 1.0 0.2-1 mg/dl Aspartate Amino Transf (AST/SGOT) 13 15-37 U/L Alanine Aminotransferase (ALT/SGPT) 24 12-78 U/L Alkaline Phosphatase 53 45-117 U/L Total Protein 7.0 6.4-8.2 gm/dl Albumin 3.2 3.4-5.0 gm/dl Globulin 3.8 2.5-4.0 gm/dl Albumin/Globulin Ratio 0.8 0.9-2 White Blood Count 13.22 4.8-10.8 K/uL Red Blood Count 4.72 4.7-6.1 M/uL Hemoglobin 14.6 14.0-18.0 g/dL Hematocrit 41.9 42-52 % Mean Corpuscular Volume 88.8 80-100 fL Mean Corpuscular Hemoglobin 30.9 25-34 pg Mean Corpuscular Hemoglobin Concent 34.8 32-36 g/dl Platelet Count 183 130-400 K/uL Mean Platelet Volume 10.8 7.4-10.4 fL Neutrophils (%) (Auto) 83.8 % Lymphocytes (%) (Auto) 11.3 % Monocytes (%) (Auto) 4.2 % Eosinophils (%) (Auto) 0.2 % Basophils (%) (Auto) 0.2 % Neutrophils # (Auto) 11.09 1.4-6.5 K/uL Lymphocytes # (Auto) 1.49 1.2-3.4 K/uL Monocytes # (Auto) 0.55 0.11-0.59 K/uL Eosinophils # (Auto) 0.03 0-0.5 K/uL Basophils # (Auto) 0.02 0-0.2 K/uL RDW Standard Deviation 43.5 36.4-46.3 fL RDW Coefficient of Variation 13.4 11.5-14.5 % Immature Granulocyte % (Auto) 0.3 % Immature Granulocyte # (Auto) 0.04 0.00-0.02 K/uL Estimated Average Glucose 174 mg/dl Hemoglobin A1c 7.7 4.5-5.6 % Lactic Acid Level 1.0 0.4-2.0 mmol/L Microbiology Results 02/16/17 Blood Culture, Received Pending 02/16/17 Blood Culture, Received Pending Assessment & Plan 51-year-old male with first occurrence of diverticulitis with small contained perforation, no evidence of peritonitis or abscess at this time Patient seen and examined with Dr. Price. Doing well, no new concerns overnight. WBC trending down. Afebrile, vital signs stable. Current diet sips and chips- will see how patient does today and possibly advance to clear liquids for dinner if no new nausea or vomiting. General Surgery will continue to follow.
--- NOTE | 2017-02-17 10:22 | Pharmacy Progress Note ---
Pharmacy Abx Initial Consult Date of Service Feb 17, 2017. Pharmacy Dosing Scope Date of Consult: 02/16/17 Consultation requested by: Dr. Ye Pharmacy is consulted to initiate Vancomycin, Zosyn, Fluconazole IV dosing therapy, order appropriate labs and adjust drug dose/frequency. Subjective The patient is a 51 year old male admitted on Feb 16, 2017 at 14:08. Objective Height (Feet): 5 Height (Inches): 11.00 Weight (Kilograms): 105.000 Vital Signs (Past 12Hrs) Vital Signs Past 12 Hours Date Time Temp Pulse Resp B/P (MAP) Pulse Ox O2 Delivery O2 Flow Rate FiO2 02/17/17 07:20 Room Air 02/17/17 06:43 36.9 72 19 142/93 (109) 94 Room Air 02/17/17 00:30 Room Air 02/16/17 22:50 37.1 92 18 138/89 (105) 92 Room Air Lab Results (24Hrs) Laboratory Tests (24 Hours) Test 02/17/17 06:12 Lactic Acid Level 1.0 mmol/L (0.4-2.0) White Blood Count 13.22 K/uL (4.8-10.8) H Red Blood Count 4.72 M/uL (4.7-6.1) Hemoglobin 14.6 g/dL (14.0-18.0) # Hematocrit 41.9 % (42-52) L Mean Corpuscular Volume 88.8 fL (80-100) Mean Corpuscular Hemoglobin 30.9 pg (25-34) Mean Corpuscular Hemoglobin Concent 34.8 g/dl (32-36) Platelet Count 183 K/uL (130-400) Mean Platelet Volume 10.8 fL (7.4-10.4) H Neutrophils (%) (Auto) 83.8 % Lymphocytes (%) (Auto) 11.3 % Monocytes (%) (Auto) 4.2 % Eosinophils (%) (Auto) 0.2 % Basophils (%) (Auto) 0.2 % Neutrophils # (Auto) 11.09 K/uL (1.4-6.5) H Lymphocytes # (Auto) 1.49 K/uL (1.2-3.4) Monocytes # (Auto) 0.55 K/uL (0.11-0.59) Eosinophils # (Auto) 0.03 K/uL (0-0.5) Basophils # (Auto) 0.02 K/uL (0-0.2) Item Value Date Time Creatinine 1.04 mg/dl 02/17/17 0609 Est Creatinine Clear Calc Drug Dose 101.3 ml/min 02/17/17 0609 Blood Urea Nitrogen 11 mg/dl 02/17/17 0609 Micro Results Date/Time Source Procedure Growth Status 02/16/17 15:18 Blood Blood Culture Pending Received 02/16/17 15:00 Blood Blood Culture Pending Received Assessment & Plan Assessment 51 year old male admitted with likely complicated diverticulitis - small contained perforation, possible gastrointestinal infection empirically starting IV Vancomycin, Zosyn, and Fluconazole. Plan IV Vancomycin, IV Zosyn and IV Fluconazole for empiric treatment of possible GI infection related to complex diverticulitis and small contained perforation Vancomycin IV * Loading dose: 2500 mg (23.8 mg/kg) * Maintenance dose: 1750 mg IV (16.7 mg/kg) every 10 hours * Goal trough level for possible complicated gastrointestinal infection: 13 to 20 mcg/mL * Trough level ordered for 02/18/17 prior to the 0800 hours dose Piperacillin/tazobactam * 4.5 g bolus administered over 30 minutes, then 3.375 g IV extended infusion every 8 hours for CrCl greater than 20 mL/min Pharmacy will continue to follow and will adjust dose/frequency as necessary. Thank you.
[2017-02-17] MEDS: SODIUM CHLOR 0.45% + 20MEQ KCL 1,000 ML IV SCH (11:18)
--- NOTE | 2017-02-17 11:18 | Hospitalist Progress Note ---
Hospitalist Progress Note Date of Service Feb 17, 2017. Subjective Pt evaluation today including: conversation w/ patient, conversation w/ family (Rosalina') PO Intake: sips and chips Voiding: no voiding problems Pt feels LLQ pain is improved from yesterday, no BM since admission. WBC down and afebrile. Denies CP or SOB All Other Systems: Reviewed and Negative Objective Vital Signs Date Time Temp Pulse Resp B/P (MAP) Pulse Ox O2 Delivery O2 Flow Rate FiO2 02/17/17 07:20 Room Air 02/17/17 06:43 36.9 72 19 142/93 (109) 94 Room Air 02/17/17 00:30 Room Air 02/16/17 22:50 37.1 92 18 138/89 (105) 92 Room Air 02/16/17 15:25 Room Air 02/16/17 15:25 37.1 94 18 146/88 (107) 93 Room Air 02/16/17 15:19 37.1 80 18 129/92 98 02/16/17 13:48 98 Room Air 02/16/17 12:28 80 18 129/92 98 Room Air Physical Exam General Appearance: WD/WN, no apparent distress Eyes: normal inspection, sclerae normal ENT: hearing grossly normal Neck: trachea midline Respiratory/Chest: lungs clear, normal breath sounds, no respiratory distress, no accessory muscle use Cardiovascular: regular rate, rhythm, no edema, no gallop, no murmur Abdomen: soft, no organomegaly, no pulsatile mass, + abnormal bowel sounds ( hypoactive), + tenderness (in LLQ without guarding or rebound) Extremities: normal range of motion, non-tender, normal inspection, no pedal edema, no calf tenderness Neurologic/Psychiatric: alert, normal mood/affect, oriented x 3 Skin: normal color, warm/dry, no rash Laboratory Results Last 24 Hours Test 02/16/17 15:00 02/16/17 16:00 02/16/17 19:52 02/16/17 23:46 Sodium Level 136 mmol/L Potassium Level 3.9 mmol/L Chloride Level 101 mmol/L Carbon Dioxide Level 27 mmol/L Anion Gap 8.0 mmol/L Blood Urea Nitrogen 9 mg/dl Creatinine 1.03 mg/dl Est Creatinine Clear Calc Drug Dose 102.2 ml/min Estimated GFR () 95.7 Estimated GFR (Non- 82.5 BUN/Creatinine Ratio 8.6 Random Glucose 195 mg/dl Calcium Level 8.9 mg/dl Bedside Glucose 211 mg/dl 145 mg/dl 161 mg/dl Test 02/17/17 03:49 02/17/17 06:09 02/17/17 06:12 02/17/17 08:28 Bedside Glucose 153 mg/dl 142 mg/dl Sodium Level 134 mmol/L Potassium Level 3.9 mmol/L Chloride Level 101 mmol/L Carbon Dioxide Level 27 mmol/L Anion Gap 6.0 mmol/L Blood Urea Nitrogen 11 mg/dl Creatinine 1.04 mg/dl Est Creatinine Clear Calc Drug Dose 101.3 ml/min Estimated GFR () 94.6 Estimated GFR (Non- 81.6 BUN/Creatinine Ratio 10.1 Random Glucose 162 mg/dl Calcium Level 8.3 mg/dl Phosphorus Level 2.4 mg/dl Magnesium Level 2.1 mg/dl Total Bilirubin 1.0 mg/dl Aspartate Amino Transf (AST/SGOT) 13 U/L Alanine Aminotransferase (ALT/SGPT) 24 U/L Alkaline Phosphatase 53 U/L Total Protein 7.0 gm/dl Albumin 3.2 gm/dl Globulin 3.8 gm/dl Albumin/Globulin Ratio 0.8 White Blood Count 13.22 K/uL Red Blood Count 4.72 M/uL Hemoglobin 14.6 g/dL Hematocrit 41.9 % Mean Corpuscular Volume 88.8 fL Mean Corpuscular Hemoglobin 30.9 pg Mean Corpuscular Hemoglobin Concent 34.8 g/dl Platelet Count 183 K/uL Mean Platelet Volume 10.8 fL Neutrophils (%) (Auto) 83.8 % Lymphocytes (%) (Auto) 11.3 % Monocytes (%) (Auto) 4.2 % Eosinophils (%) (Auto) 0.2 % Basophils (%) (Auto) 0.2 % Neutrophils # (Auto) 11.09 K/uL Lymphocytes # (Auto) 1.49 K/uL Monocytes # (Auto) 0.55 K/uL Eosinophils # (Auto) 0.03 K/uL Basophils # (Auto) 0.02 K/uL RDW Standard Deviation 43.5 fL RDW Coefficient of Variation 13.4 % Immature Granulocyte % (Auto) 0.3 % Immature Granulocyte # (Auto) 0.04 K/uL Estimated Average Glucose 174 mg/dl Hemoglobin A1c 7.7 % Lactic Acid Level 1.0 mmol/L Assessment and Plan This pt is a 51-year-old man with diabetes mellitus II on metformin and lower back pain with sciatica on nonsteroidal anti-inflammatory presented to the ED with LLQ abdominal pain and subjective fever, CT scan revealed acute complicated sigmoid diverticulitis with 2.1 cm microperforation appears contained. Acute complicated sigmoid diverticulitis with contained 2.1 cm microperforation- -> first attack, never had colonoscopy. Sepsis present on admission with leukocytosis and tachycardia-now resolving. LLQ pain improving today, Luekocytosis improved from 21k-->13k. Remains afebrile -continue sips and chips only for now, likely adv diet to clears tomorrow or later this evening if doing really well -continue IV Zosyn, Vanco, Diflucan for now but can likely dc those 3 and switch to Cipro/Flagyl if BCxs neg after 48 hrs -start IVFs for hydration today while min po intake -pain control prn -follow CBC -will need colonoscopy in 6 weeks, possible eval for elective sigmoid colectomy in 6-8 weeks -Appreciate Surgical consultation -Instructed to eat rich fiber food when he improves DMII- well controlled, on metformin at home, A1C 7.7% here Hold metformin for now -SSI, accuchecks Dysphagia- Instructed to follow-up with GI on his intermittent pharyngeal dysphagia/will need barium swallow after he recovered from this acute illness Lower back pain with sciatica on nonsteroidal [id number] Lovenox for DVT prophylaxis Dispo- to home in 1-2 days FULL CODE
[2017-02-17] MEDS ORDERED: INSULIN ASPART 100 UNITS/ML 3 ML PEN SC SCH ×2 (12:00)
[2017-02-17 12:16] VITALS: Ht 180.3 cm; Wt 105.0 kg
--- NOTE | 2017-02-17 12:24 | NUR ---
DIABETES: Pt seen on clinical alert for Difficulty Managing DM. Pt states he did agree to meeting w/ CDE while here since he thought he could benefit from some education. See DM network & DM discharge interventions. Addendum: 02/17/17 at 1225 by Lavern Mac RN Amended: Links added.
[2017-02-17 14:55] VITALS: BP 146/84; PULSE 88; TEMP 37; O2SAT 92
--- NOTE | 2017-02-17 15:30 | NUR ---
Pt screened for admitting Dx of Diverticulitis. Please refer to linked assessment Addendum: 02/17/17 at [address] Amended: Links added.
[2017-02-17] MEDS: FLUCONAZOLE / NSS 200 MG in PREMIXED NSS 100 ML IV SCH (16:10)
--- NOTE | 2017-02-17 16:42 | NUR ---
ID: Patient is alert and oriented. He denies pain at this time. Bowel sounds are hypoactive but patient notes return of flatus this afternoon. MD progressed diet to clears. Advised patient of diet progression and its limitations as well as change in BSG assessments. Patient is (I) to bathroom and ambulating in hallways. R FA IV site is [facility]. Diflucan infusing at this time. Discussed schedule of abx this evening. Patient resting comfortably at this time. Will continue to monitor.
[2017-02-17 22:55] VITALS: BP 159/83; PULSE 95; TEMP 37.1; O2SAT 96
[2017-02-18] MEDS ORDERED: NURSING DECISION MEDICATION ORDER SCH (01:45)
[2017-02-18] MEDS: PIPERACILL/TAZOBAC IV 3.375 GM in DEXTROSE 5% 100ML 100 ML IV SCH ×3 (02:33→18:12)
[2017-02-18] MEDS: HYDROmorphone INJ 1 MG/ML SYR IV PRN ×6 (03:03→23:32)
[2017-02-18] MEDS: SODIUM CHLOR 0.45% + 20MEQ KCL 1,000 ML IV SCH (06:00)
[2017-02-18 06:50] VITALS: BP 157/98; PULSE 83; TEMP 37; O2SAT 98
[2017-02-18] MEDS ORDERED: VANCOMYCIN TROUGH ONE (07:30)
[2017-02-18 07:41] LABS: HEMOGLOBIN 15.5 g/dL (14.0-18.0); MEAN CELL VOLUME 88.9 fL (80-100); MEAN CORPUSCULAR HEMOGLOBIN 30.6 pg (25-34); MEAN CORPUSCULAR HGB CONC 34.4 g/dl (32-36); MEAN PLATELET VOLUME 10.8 fL (7.4-10.4); PLATELET COUNT 181 K/uL (130-400); RED CELL DISTRIBUTION WIDTH CV 13.2 % (11.5-14.5); RED CELL DISTRIBUTION WIDTH SD 42.7 fL (36.4-46.3); WHITE BLOOD COUNT 11.41 K/uL (4.8-10.8)
[2017-02-18] MEDS: INSULIN ASPART 100 UNITS/ML 3 ML PEN SC SCH ×4 (08:00→20:55)
[2017-02-18 08:06] LABS: CALCIUM 8.8 mg/dl (8.5-10.1); CREATININE 1.01 mg/dl (0.60-1.40); POTASSIUM 3.5 mmol/L (3.5-5.1)
--- NOTE | 2017-02-18 09:10 | Pharmacy Progress Note ---
Pharmacy Abx Dose Progress Nt Date of Service Feb 18, 2017. Pharmacy Dosing Scope The patient is currently receiving the following antimicrobial agents per Pharmacy consult: Vancomycin 1750 mg IV (16.7 mg/kg) every 10 hours Objective Height (Feet): 5 Height (Inches): 11.00 Weight (Kilograms): 105.000 Vital Signs (Past 12Hrs) Vital Signs Past 12 Hours Date Time Temp Pulse Resp B/P (MAP) Pulse Ox O2 Delivery O2 Flow Rate FiO2 02/18/17 08:15 Room Air 02/18/17 06:50 37.0 83 20 157/98 (117) 98 Room Air 02/17/17 23:45 Room Air 02/17/17 22:55 37.1 95 18 159/83 (108) 96 Room Air Lab Results (24Hrs) Laboratory Tests (24 Hours) Test 02/18/17 07:20 White Blood Count 11.41 K/uL (4.8-10.8) H Item Value Date Time Vancomycin Level Trough 12.6 mcg/ml 02/18/17 0720 Creatinine 1.01 mg/dl 02/18/17 0720 Est Creatinine Clear Calc Drug Dose 104.3 ml/min 02/18/17 0720 Micro Results Date/Time Source Procedure Growth Status 02/16/17 15:18 Blood Blood Culture - Preliminary NO GROWTH TO DATE. Resulted 02/16/17 15:00 Blood Blood Culture - Preliminary NO GROWTH TO DATE. Resulted Assessment & Plan Assessment 51 year old male admitted with likely complicated diverticulitis - small contained perforation, possible gastrointestinal infection empirically receiving IV Vancomycin, Zosyn, and Fluconazole. Patient is symptomatically improving with decreased LLQ pain, resolving leukocytosis, afebrile, cultures negative to this point and renal function stable. Noted possible switch to ciprofloxacin/metronidazole once cultures negative x 48 hours. Day # 3 Vancomycin of antimicrobial therapy Plan Vancomycin IV * Trough level of 12.6 mcg/mL is subtherapeutic, however, given BMI 32.3 will likely drift into therapeutic range. * Continue dose of 1750 mg IV every 10 hours * Goal trough level for GI infection: 13 to 20 mcg/mL * No additional levels ordered at this point while condition improves and cultures negative Piperacillin/tazobactam * Continue 3.375 g IV extended infusion every 8 hours for CrCl greater than 20 mL/min Pharmacy will continue to follow and will adjust dose/frequency as necessary. Thank you.
--- NOTE | 2017-02-18 09:20 | Surgery Progress Note ---
Surgery Progress Note Date of Service Feb 18, 2017. Subjective beginning to have flatus, pain improved, no BM, ambulating Objective Vital Signs: Date Time Temp Pulse Resp B/P (MAP) Pulse Ox O2 Delivery O2 Flow Rate FiO2 02/18/17 08:15 Room Air 02/18/17 06:50 37.0 83 20 157/98 (117) 98 Room Air 02/17/17 23:45 Room Air 02/17/17 22:55 37.1 95 18 159/83 (108) 96 Room Air 02/17/17 16:10 Room Air 02/17/17 14:55 37.0 88 18 146/84 (104) 92 Room Air Abdomen: soft, + distended (slightly), + tenderness (improved) Laboratory Results: Results Past 24 Hours Test 02/17/17 11:54 02/17/17 17:00 02/17/17 20:32 02/18/17 07:20 Range/Units Bedside Glucose 135 102 174 70-99 mg/dl White Blood Count 11.41 4.8-10.8 K/uL Red Blood Count 5.06 4.7-6.1 M/uL Hemoglobin 15.5 14.0-18.0 g/dL Hematocrit 45.0 42-52 % Mean Corpuscular Volume 88.9 80-100 fL Mean Corpuscular Hemoglobin 30.6 25-34 pg Mean Corpuscular Hemoglobin Concent 34.4 32-36 g/dl RDW Standard Deviation 42.7 36.4-46.3 fL RDW Coefficient of Variation 13.2 11.5-14.5 % Platelet Count 181 130-400 K/uL Mean Platelet Volume 10.8 7.4-10.4 fL Sodium Level 133 136-145 mmol/L Potassium Level 3.5 3.5-5.1 mmol/L Chloride Level 98 98-107 mmol/L Carbon Dioxide Level 28 21-32 mmol/L Anion Gap 7.0 3-11 mmol/L Blood Urea Nitrogen 9 7-18 mg/dl Creatinine 1.01 0.60-1.40 mg/dl Est Creatinine Clear Calc Drug Dose 104.3 ml/min Estimated GFR () 98.0 Estimated GFR (Non- 84.5 BUN/Creatinine Ratio 9.2 10-20 Random Glucose 155 70-99 mg/dl Calcium Level 8.8 8.5-10.1 mg/dl Vancomycin Level Trough 12.6 SEE COMMENT mcg/ml Test 02/18/17 08:01 Range/Units Bedside Glucose 138 70-99 mg/dl Assessment & Plan diverticulitis with microperf improving, WBC decreasing cont IV abx can have full liquids tonight or in AM seen with Dr. Price
[2017-02-18] MEDS: ENOXAPARIN 40 MG/0.4 ML SYR SQ SCH (09:23)
[2017-02-18] MEDS: VANCOMYCIN IV 1,750 MG in SODIUM CHLORIDE 0.9% 500ML 500 ML IV SCH ×2 (09:25→18:12)
--- NOTE | 2017-02-18 12:44 | Hospitalist Progress Note ---
Hospitalist Progress Note Date of Service Feb 18, 2017. Subjective Pt evaluation today including: conversation w/ patient Voiding: no voiding problems Pt feeling a little better today. Has required pain med less frequently. Is tolerating clears this AM and for lunch but starting to feel a little nauseated. Is passing a lot of flatus, no BM yet. Afebrile, WBC count down. Pt reports BPs have been more elevated as an outpt and at home over the last 6 months. Denies CP or SOB All Other Systems: Reviewed and Negative Objective Vital Signs Date Time Temp Pulse Resp B/P (MAP) Pulse Ox O2 Delivery O2 Flow Rate FiO2 02/18/17 08:15 Room Air 02/18/17 06:50 37.0 83 20 157/98 (117) 98 Room Air 02/17/17 23:45 Room Air 02/17/17 22:55 37.1 95 18 159/83 (108) 96 Room Air 02/17/17 16:10 Room Air 02/17/17 14:55 37.0 88 18 146/84 (104) 92 Room Air Physical Exam General Appearance: WD/WN, no apparent distress Eyes: normal inspection, sclerae normal ENT: hearing grossly normal Neck: trachea midline Respiratory/Chest: lungs clear, normal breath sounds, no respiratory distress, no accessory muscle use Cardiovascular: regular rate, rhythm, no edema, no gallop, no murmur Abdomen: normal bowel sounds, soft, + tenderness (in LLQ w/o guarding or rebound) Extremities: non-tender, normal inspection, no pedal edema, no calf tenderness Neurologic/Psychiatric: alert, normal mood/affect, oriented x 3 Skin: normal color, warm/dry, no rash Laboratory Results Last 24 Hours Test 02/17/17 17:00 02/17/17 20:32 02/18/17 07:20 02/18/17 08:01 Bedside Glucose 102 mg/dl 174 mg/dl 138 mg/dl White Blood Count 11.41 K/uL Red Blood Count 5.06 M/uL Hemoglobin 15.5 g/dL Hematocrit 45.0 % Mean Corpuscular Volume 88.9 fL Mean Corpuscular Hemoglobin 30.6 pg Mean Corpuscular Hemoglobin Concent 34.4 g/dl RDW Standard Deviation 42.7 fL RDW Coefficient of Variation 13.2 % Platelet Count 181 K/uL Mean Platelet Volume 10.8 fL Sodium Level 133 mmol/L Potassium Level 3.5 mmol/L Chloride Level 98 mmol/L Carbon Dioxide Level 28 mmol/L Anion Gap 7.0 mmol/L Blood Urea Nitrogen 9 mg/dl Creatinine 1.01 mg/dl Est Creatinine Clear Calc Drug Dose 104.3 ml/min Estimated GFR () 98.0 Estimated GFR (Non- 84.5 BUN/Creatinine Ratio 9.2 Random Glucose 155 mg/dl Calcium Level 8.8 mg/dl Vancomycin Level Trough 12.6 mcg/ml Test 02/18/17 11:54 Bedside Glucose 161 mg/dl Assessment and Plan This pt is a 51-year-old man with diabetes mellitus II on metformin and lower back pain with sciatica on nonsteroidal anti-inflammatory presented to the ED with LLQ abdominal pain and subjective fever, CT scan revealed acute complicated sigmoid diverticulitis with 2.1 cm microperforation appears contained. Acute complicated sigmoid diverticulitis with contained 2.1 cm microperforation- -> first attack, never had colonoscopy. Sepsis present on admission with leukocytosis and tachycardia-now resolved sepsis. LLQ pain continues to improve today, but feeling a little nauseated with staring clears. Leukocytosis continues to improve from 21k-->13k-->11k. Remains afebrile -continue clears today, likely adv diet to full liquids in the AM tomorrow or later this evening if doing really well -continue IV Zosyn, Vanco, Diflucan for now but can likely dc those 3 and switch to Cipro/Flagyl if BCxs neg after 48 hrs-->this afternoon -dc IVFs as tolerating clears -pain control prn -follow CBC -will need colonoscopy in 6 weeks, possible eval for elective sigmoid colectomy in 6-8 weeks -Appreciate Surgical consultation -Instructed to eat rich fiber food when he improves DMII- well controlled, on metformin at home, A1C 7.7% here Hold metformin for now -continue SSI, accuchecks Elevated BPs without dx of HTN--> sounds like has become a chronic issue in the last 6 months. May be exacerbated here by pain. BPs consistently here in 140s- 150s/80s-90s -advised against NSAIDs for pain (sciatica) -advised to discuss with PCP as outpt and if persists above goals for having diabetes, then should begin ACEI or diuretic Dysphagia- Instructed to follow-up with GI on his intermittent pharyngeal dysphagia/will need barium swallow after he recovered from this acute illness Lower back pain with sciatica on nonsteroidal [id number] -advised to dc NSAIDs due to elevated BP and cardiac risk Lovenox for DVT prophylaxis Dispo- to home in 1-2 days FULL CODE
[2017-02-18 15:00] VITALS: BP 156/90; PULSE 65; TEMP 36.5; O2SAT 98
[2017-02-18] MEDS: FLUCONAZOLE / NSS 200 MG in PREMIXED NSS 100 ML IV SCH (17:00)
--- NOTE | 2017-02-18 19:43 | NUR ---
IS: A&Ox4, pain is being controlled with PRN IV pain medications. Lungs clear on room air. Tolerating diet. Voiding without difficulty. Patient is independent in room. Patient is saline locked when IV antibiotics are not infusing. Plan is for patient to return home at some point and have follow up appointments to discuss/assess options to manage his Diverticulitis. Call zepeda in reach, encouraged to ring for assistance. Will continue to monitor for changes. Addendum: 02/19/17 at 1657 by Jayro Rizvi RN This is an ID note
[2017-02-18 23:15] VITALS: BP 152/59; PULSE 64; TEMP 37.1; O2SAT 96
[2017-02-18 23:30] VITALS: O2SAT 96
[2017-02-19] MEDS: PIPERACILL/TAZOBAC IV 3.375 GM in DEXTROSE 5% 100ML 100 ML IV SCH ×2 (02:12→10:19)
--- NOTE | 2017-02-19 05:00 | NUR ---
A: During Q1 hr shifts, noticed patient was awake and restless. Patient seemed flushed and sweating. BS was checked as a precautionary measure. Patient BS was 130.
[2017-02-19] MEDS: HYDROmorphone INJ 1 MG/ML SYR IV PRN ×3 (06:09→17:04)
[2017-02-19 06:32] LABS: HEMATOCRIT 41.5 % (42-52); HEMOGLOBIN 14.4 g/dL (14.0-18.0); MEAN CELL VOLUME 87.6 fL (80-100); MEAN CORPUSCULAR HEMOGLOBIN 30.4 pg (25-34); MEAN CORPUSCULAR HGB CONC 34.7 g/dl (32-36); MEAN PLATELET VOLUME 10.9 fL (7.4-10.4); PLATELET COUNT 205 K/uL (130-400); RED CELL DISTRIBUTION WIDTH SD 42.1 fL (36.4-46.3); WHITE BLOOD COUNT 6.72 K/uL (4.8-10.8)
[2017-02-19 07:02] LABS: CALCIUM 8.8 mg/dl (8.5-10.1); POTASSIUM 3.6 mmol/L (3.5-5.1)
--- NOTE | 2017-02-19 07:24 | NUR ---
Pt screened for NPO/Clears > 3 days. Process Plan entered. When appropriate, advance diet from clear liquids. Will continue to monitor Pt's ability to have diet advanced, plan of care, need for interventions
[2017-02-19 07:33] VITALS: BP 157/91; PULSE 60; TEMP 36.9; O2SAT 98
[2017-02-19] MEDS: ENOXAPARIN 40 MG/0.4 ML SYR SQ SCH (08:43)
--- NOTE | 2017-02-19 09:26 | Surgery Progress Note ---
Surgery Progress Note Date of Service Feb 19, 2017. Subjective 51-year-old male admitted with uncomplicated diverticulitis. Small amount of pain in his left lower quadrant after drinking liquids, however is mostly resolved. He has been passing gas but has not had a bowel movement yet. Denies any fevers, feels much better than admission. Objective Vital Signs: Date Time Temp Pulse Resp B/P (MAP) Pulse Ox O2 Delivery O2 Flow Rate FiO2 02/19/17 07:33 36.9 60 18 157/91 (113) 98 Room Air 02/19/17 07:20 Room Air 02/18/17 23:30 96 Room Air 02/18/17 23:15 37.1 64 16 152/59 (90) 96 Room Air 02/18/17 15:25 Room Air 02/18/17 15:00 36.5 65 20 156/90 (112) 98 Room Air General Appearance: WD/WN, no apparent distress Abdomen: normal bowel sounds, non tender, non distended, soft Laboratory Results: Results Past 24 Hours Test 02/18/17 11:54 02/18/17 16:54 02/18/17 20:30 02/19/17 04:25 Range/Units Bedside Glucose 161 115 146 130 70-99 mg/dl Test 02/19/17 05:17 02/19/17 07:53 Range/Units White Blood Count 6.72 4.8-10.8 K/uL Red Blood Count 4.74 4.7-6.1 M/uL Hemoglobin 14.4 14.0-18.0 g/dL Hematocrit 41.5 42-52 % Mean Corpuscular Volume 87.6 80-100 fL Mean Corpuscular Hemoglobin 30.4 25-34 pg Mean Corpuscular Hemoglobin Concent 34.7 32-36 g/dl RDW Standard Deviation 42.1 36.4-46.3 fL RDW Coefficient of Variation 13.0 11.5-14.5 % Platelet Count 205 130-400 K/uL Mean Platelet Volume 10.9 7.4-10.4 fL Sodium Level 135 136-145 mmol/L Potassium Level 3.6 3.5-5.1 mmol/L Chloride Level 101 98-107 mmol/L Carbon Dioxide Level 29 21-32 mmol/L Anion Gap 5.0 3-11 mmol/L Blood Urea Nitrogen 8 7-18 mg/dl Creatinine 1.00 0.60-1.40 mg/dl Est Creatinine Clear Calc Drug Dose 105.3 ml/min Estimated GFR () 99.2 Estimated GFR (Non- 85.5 BUN/Creatinine Ratio 7.9 10-20 Random Glucose 180 70-99 mg/dl Calcium Level 8.8 8.5-10.1 mg/dl Bedside Glucose 162 70-99 mg/dl Assessment & Plan 51-year-old male with uncomplicated diverticulitis, doing well, responding to nonoperative management. Medications: Advance diet to low residual diet as tolerated Transition to oral antibiotics Needs follow-up colonoscopy in 6 weeks Discharge per medicine team Surgery will sign off, please call with questions or concerns
[2017-02-19] MEDS: INSULIN ASPART 100 UNITS/ML 3 ML PEN SC SCH ×4 (09:33→21:14)
[2017-02-19 15:01] VITALS: BP 159/94; PULSE 75; TEMP 36.4; O2SAT 99
--- NOTE | 2017-02-19 16:07 | NUR ---
[employer] [facility]: Follow up appointments arranged and details added to the DC instructions - "Please, follow up with Dr. Cole on ThursdayFebruary 27 at 2:15 pm *If you need to change this appointment, you can call his office at [phone]. Please, follow up with Dr. Price (surgeon) on ThursdayMarch 09 at 9:00 am. *This office is located at [address] [facility] in [place]. If you need to change this appointment, you can call the office at [phone]. Please, follow up at [facility]. The nurse will contact you with the appointment information. *This office is located at [address] [place] [address] in [place]- beside [facility]. If you have any questions you can call the office at [phone]."
--- NOTE | 2017-02-19 16:57 | NUR ---
ID: A&Ox4, pain is being controlled with PRN IV pain medications. Lungs clear on room air. Tolerating diet that has been advanced to full liquids. Patient is going to try low fiber type 2 diabetic diet this evening for dinner. Voiding without difficulty. Patient is independent in room. Saline locked. Plan is for patient to return home, possibly today or tomorrow and have follow up appointments to discuss/assess options to manage his Diverticulitis. Call zepeda in reach, encouraged to ring for assistance. Will continue to monitor for changes.
--- NOTE | 2017-02-19 19:25 | Hospitalist Progress Note ---
Hospitalist Progress Note Date of Service Feb 19, 2017. Subjective Pt evaluation today including: conversation w/ patient Pt doing much better, pain is less, is spacing out dilaudid injections. Is eating low residue diet for dinner and feeling good. Passing flatus but no BM yet. No N/V. No CP/SOB All Other Systems: Reviewed and Negative Objective Vital Signs Date Time Temp Pulse Resp B/P (MAP) Pulse Ox O2 Delivery O2 Flow Rate FiO2 02/19/17 15:47 Room Air 02/19/17 15:01 36.4 75 18 159/94 (115) 99 Room Air 02/19/17 07:33 36.9 60 18 157/91 (113) 98 Room Air 02/19/17 07:20 Room Air 02/18/17 23:30 96 Room Air 02/18/17 23:15 37.1 64 16 152/59 (90) 96 Room Air Physical Exam General Appearance: WD/WN, no apparent distress Eyes: normal inspection, sclerae normal ENT: hearing grossly normal Neck: trachea midline Respiratory/Chest: lungs clear, normal breath sounds, no respiratory distress, no accessory muscle use Cardiovascular: regular rate, rhythm, no edema, no gallop, no murmur Abdomen: normal bowel sounds, soft, + tenderness (mild in LLQ w/o guarding or rebound) Extremities: normal inspection, no pedal edema, no calf tenderness Neurologic/Psychiatric: alert, normal mood/affect, oriented x 3 Skin: normal color, warm/dry, no rash Laboratory Results Last 24 Hours Test 02/18/17 20:30 02/19/17 04:25 02/19/17 05:17 02/19/17 07:53 Bedside Glucose 146 mg/dl 130 mg/dl 162 mg/dl White Blood Count 6.72 K/uL Red Blood Count 4.74 M/uL Hemoglobin 14.4 g/dL Hematocrit 41.5 % Mean Corpuscular Volume 87.6 fL Mean Corpuscular Hemoglobin 30.4 pg Mean Corpuscular Hemoglobin Concent 34.7 g/dl RDW Standard Deviation 42.1 fL RDW Coefficient of Variation 13.0 % Platelet Count 205 K/uL Mean Platelet Volume 10.9 fL Sodium Level 135 mmol/L Potassium Level 3.6 mmol/L Chloride Level 101 mmol/L Carbon Dioxide Level 29 mmol/L Anion Gap 5.0 mmol/L Blood Urea Nitrogen 8 mg/dl Creatinine 1.00 mg/dl Est Creatinine Clear Calc Drug Dose 105.3 ml/min Estimated GFR () 99.2 Estimated GFR (Non- 85.5 BUN/Creatinine Ratio 7.9 Random Glucose 180 mg/dl Calcium Level 8.8 mg/dl Test 02/19/17 11:58 Bedside Glucose 181 mg/dl Assessment and Plan This pt is a 51-year-old man with diabetes mellitus II on metformin and lower back pain with sciatica on nonsteroidal anti-inflammatory presented to the ED with LLQ abdominal pain and subjective fever, CT scan revealed acute sigmoid diverticulitis with 2.1 cm microperforation appears contained. Acute sigmoid diverticulitis with contained 2.1 cm microperforation--> first attack, never had colonoscopy. Sepsis present on admission with leukocytosis and tachycardia-now resolved sepsis. Much improved, leukocytosis now resolved, remains afebrile, tolerating low residue diet. BCxs remain NGTD -continue low residue diet for 2 weeks then advance to high fiber diet at home -received Zosyn/Diflucan/Vanco for 2 days, then narrowed down to just Zosyn, now can switch to po Cipro and Flagyl to complete 10 day course -pain control-encouraged po pain control now as will likely go home tomorrow--> tylenol or percocet -will need colonoscopy in 6 weeks with GI -Appreciate Surgical consultation DMII- well controlled, on metformin at home, A1C 7.7% here Hold metformin for now and can restart upon discharge -continue SSI, accuchecks Elevated BPs without dx of HTN--> sounds like has become a chronic issue in the last 6 months. May be exacerbated here by pain. BPs continue to be consistently elevated here in 140s-150s/80s-90s -advised against NSAIDs for pain (sciatica) -advised to discuss with PCP as outpt and if persists above goals for having diabetes, then should begin ACEI or diuretic Dysphagia- Instructed to follow-up with GI on his intermittent pharyngeal dysphagia/will need barium swallow after he recovered from this acute illness Lower back pain with sciatica on nonsteroidal [id number] -advised to dc NSAIDs due to elevated BP and cardiac risk Lovenox for DVT prophylaxis Dispo- to home likely tomorrow FULL CODE
[2017-02-19] MEDS ORDERED: ACETAMINOPHEN 325 MG TAB PO PRN (19:30)
[2017-02-19] MEDS: OXYCODONE/ACETAMINOPHEN 5-325 TAB PO PRN (20:07)
[2017-02-19] MEDS: CIPROFLOXACIN 500 MG TAB PO SCH (21:10)
[2017-02-19] MEDS: METRONIDAZOLE 500 MG TAB PO SCH (21:10)
[2017-02-19 23:39] VITALS: BP 143/85; PULSE 75; TEMP 36.7; O2SAT 96
[2017-02-19 23:45] VITALS: O2SAT 96
[2017-02-20] MEDS: OXYCODONE/ACETAMINOPHEN 5-325 TAB PO PRN ×4 (00:13→16:01)
[2017-02-20 07:38] VITALS: BP 152/94; PULSE 83; TEMP 36.7; O2SAT 94
[2017-02-20] MEDS: CIPROFLOXACIN 500 MG TAB PO SCH (08:26)
[2017-02-20] MEDS: METRONIDAZOLE 500 MG TAB PO SCH ×2 (08:26→13:33)
[2017-02-20] MEDS: ENOXAPARIN 40 MG/0.4 ML SYR SQ SCH (08:27)
[2017-02-20] MEDS: INSULIN ASPART 100 UNITS/ML 3 ML PEN SC SCH ×2 (08:38→12:45)
[2017-02-20 09:52] VITALS: BP 152/94; PULSE 83; TEMP 36.7; O2SAT 94
[2017-02-20 15:04] VITALS: BP 161/92; PULSE 69; TEMP 36.3; O2SAT 91
[2017-02-20] MEDS ORDERED: NPR375 PO (15:50)
[2017-02-20] MEDS ORDERED: OXYC-57 PO (15:50)
[2017-02-20] MEDS ORDERED: MTR500 PO (15:50)
[2017-02-20] MEDS ORDERED: CPR500 PO (15:50)
--- NOTE | 2017-02-20 16:01 | Discharge Instructions ---
Discharge Instructions Date of Service Feb 20, 2017. Admission Reason for Admission: Acute Diverticulitis Discharge Discharge Diagnosis / Problem: Acute diverticulitis Discharge Goals Goal(s): Improve disease control, Diagnostic testing, Therapeutic intervention Activity Recommendations Activity Limitations: as noted below Exercise/Sports Limitations: gradually increase as tolerated Shower/Bathe: no limitations Driving or Machine Use: no driving while taking oxycodone Do not drink alcohol while on the antibiotics . Instructions / Follow-Up Instructions / Follow-Up You were admitted with acute diverticulitis of the colon and treated with antibiotics. Please finish out the course of both antibiotics for another 5-6 days. You will need to follow up with your PCP within 1-2 weeks, and have a colonoscopy in about 6 weeks. Current Hospital Diet Patient's current hospital diet: Diabetes Type 2 Diet, Low Fiber Diet Discharge Diet Recommended Diet: Diabetes Type 2 Diet, Low Fiber Diet (for 2 weeks, then can change to a HIGH FIBER diet to prevent diverticulitis in the future) Procedures Procedures Performed: CT abdomen/pelvis Pending Studies Studies pending at discharge: yes List of pending studies: Final Blood CUltures from 02/16/17-no growth to date Laboratory Results Last 24 Hours Test 02/19/17 16:59 02/19/17 20:11 02/20/17 08:10 Bedside Glucose 123 mg/dl 184 mg/dl 156 mg/dl Hemoglobin A1c Test 02/17/17 06:12 Range/Units Estimated Average Glucose 174 mg/dl Hemoglobin A1c 7.7 H 4.5-5.6 % Medical Emergencies . Who to Call and When: Medical Emergencies: If at any time you feel your situation is an emergency, please call 911 immediately. . Non-Emergent Contact Non-Emergency issues call your: Primary Care Provider Call Non-Emergent contact if: you have a fever, temperature is above 100.5, your pain is not controlled, your pain is worsening, your pain is unusual for you, your pain is concerning you, you have any medication questions . . "Provider Documentation" section prepared by Nohemi Stokes. . VTE Core Measure Inpt VTE Proph given/why not?: Enoxaparin (Lovenox)SQ [place] Drug Monitoring Program Search Results: patient reviewed within database (not in database)
--- NOTE | 2017-02-20 16:10 | Discharge Summary ---
Discharge Summary Date of Service Feb 20, 2017. Discharge Summary Admission Date: Feb 16, 2017 at 14:08 Discharge Date: Feb 20, 2017 Discharge Disposition: Home Principal Diagnosis: Acute diverticulitis with microperforation,Sepsis Problems/Secondary Diagnoses: Diabetes mellitus II Chronic lower back pain with sciatica Elevated blood pressure without diagnosis of HTN Dysphagia Procedures: CT abdomen/pelvis Consultations: General Surgery Medication Reconciliation New Medications: Ciprofloxacin (Ciprofloxacin HCl) 500 Mg Tab 500 MG PO BID, #11 TAB Metronidazole (Metronidazole) 500 Mg Tab 500 MG PO TID, #17 TAB Oxycodone/Acetaminophen 5MG/325MG (Percocet 5MG/325MG) Tab 1-2 TAB PO Q6H PRN for Pain for 3 Days, #24 TAB Changed Medications: Naproxen Tab (Naprosyn) 375 Mg Tab 375 MG PO BID PRN for Pain for 30 Days (Medication details modified) Continued Medications: Yhjtjhwxnkg-Whhcivoiiyj-Eti C- (Glucosamine Chondroitin) 1 Tab Tab 1 TAB PO BID Metformin HCl (Metformin HCl) 500 Mg Tab 500 MG PO BID Referrals At Discharge Follow up Referrals: Surgery Referral - Within 6 Weeks with Marcos Price, DO Discharge Exam Feeling much better on day of discharge. Still with some pain. Is tolerating low residue diet. Afebrile, no further leukocytosis. Is taking percocet prn pain. Review of Systems: Constitutional: No fever, No chills Eyes: No problem reported ENT: No problem reported Respiratory: No problem reported Cardiovascular: No problem reported Abdomen: + pain, No nausea, No vomiting, No diarrhea, No constipation (had a BM today), No GI bleeding Musculoskeletal: No problem reported Genitourinary - Male: No problem reported Neurologic: No problem reported Psychiatric: No problem reported Endocrine: No problem reported Hematologic / Lymphatic: No problem reported Integumentary: No problem reported Physical Exam: General Appearance: WD/WN, no apparent distress Eyes: normal inspection, sclerae normal ENT: hearing grossly normal Neck: trachea midline Respiratory/Chest: lungs clear, normal breath sounds, no respiratory distress, no accessory muscle use Cardiovascular: regular rate, rhythm, no edema, no gallop, no murmur Abdomen / GI: normal bowel sounds, soft, no organomegaly, no pulsatile mass , + tenderness (in LLQ without guarding or rebound) Extremities: normal inspection, no calf tenderness, normal capillary refill , no pedal edema Neurologic/Psychiatric: alert, normal mood/affect, oriented x 3 Skin: normal color, warm/dry, no rash Hospital Course This pt is a 51-year-old man with diabetes mellitus II on metformin and lower back pain with sciatica on nonsteroidal anti-inflammatory presented to the ED with LLQ abdominal pain and subjective fever, CT scan revealed acute sigmoid diverticulitis with 2.1 cm microperforation appears contained. Acute sigmoid diverticulitis with contained 2.1 cm microperforation--> first attack, never had colonoscopy. Sepsis present on admission with leukocytosis and tachycardia-now resolved sepsis. Much improved, leukocytosis now resolved, remains afebrile, tolerating low residue diet, pain is improved. BCxs remain NGTD at time of discharge Seen by General SUrgery and no surgery indicated at this time. Recommend follow up with General Surgery after discharge as well as colonoscopy in 6 weeks with GI. -continue low residue diet for 2 weeks then advance to high fiber diet at home -received Zosyn/Diflucan/Vanco for 2 days, then narrowed down to just Zosyn for a 3rd day, then switched to po Cipro and Flagyl to complete 10 day course -pain control with prn percocet x 3 days -will need colonoscopy in 6 weeks with GI -Appreciate Surgical consultation DMII- well controlled, on metformin at home, A1C 7.7% here, received sliding scale insulin coverage Hold metformin for now and can restart upon discharge Elevated BPs without dx of HTN--> sounds like has become a chronic issue in the last 6 months. May be exacerbated here by pain. BPs continue to be consistently elevated here in 140s-150s/80s-90s -advised against NSAIDs for pain (sciatica) unless really necessary -advised to discuss with PCP as outpt and if persists above goals for having diabetes, then should begin ACEI or diuretic Dysphagia-mentioned on admission but not severe Instructed to follow-up with GI on his intermittent pharyngeal dysphagia/will need barium swallow after he recovered from this acute illness Lower back pain with sciatica on nonsteroidal oaul-pyouutkbozqtqx-cwdaor -advised to decrease use of NSAIDs due to elevated BP and cardiac risk Stable for discharge to home Total Time Spent: Greater than 30 minutes This includes examination of the patient, discharge planning, medication reconciliation, and communication with other providers. Discharge Instructions Please refer to the electronic Patient Visit Report (Discharge Instructions) for additional information. Follow-Up PCP within 1-2 weeks GI for colonoscopy in 6 weeks General Surgery within 2 weeks Additional Copies To Simon Mehta M.D.; Marcos Price, DO
[2017-06-18] MEDS ORDERED: GABA-113 PO (15:04)
== END 2017-02-20 16:36 | disposition home or self-care (01) | DRG 872 ==
LOC: C.EDB 07:55 → C.MSW 14:08 → ENRESERV 14:55
PROVIDERS: ADMIT Internal Medicine; ATTEND Family Medicine
DX: A41.9 Sepsis, unspecified organism (principal); K57.20 Diverticulitis of large intestine with perforation and abscess without bleeding; F17.200 Nicotine dependence, unspecified, uncomplicated; E11.9 Type 2 diabetes mellitus without complications; Z79.84 Long term (current) use of oral hypoglycemic drugs; M51.16 Intervertebral disc disorders with radiculopathy, lumbar region; R03.0 Elevated blood-pressure reading, without diagnosis of hypertension; R13.10 Dysphagia, unspecified

== ENCOUNTER → 2017-06-19 | Day surgery (SDC) | payer OTHER ==
[2017-06-18 15:04] VITALS: BMI 31.0
[~2017-06-19] VITALS: Ht 180.3 cm; Wt 102.3 kg
[~2017-06-19] MED LIST changes: +FENTANYL CITRATE INJ 50 MCG/1 ML 2 ML VIAL ONE; +GLUCTAB7 PO; +LIDOCAINE HCL 2% 2 ML VIAL (20MG/ML) ONE; -NAPR-22 PO; +NPR375 PO; +PROPOFOL IV EMULSION 10 MG/ML 20 ML VIAL IV ONE
[2017-06-19 10:27] VITALS: Ht 180.3 cm; Wt 102.3 kg
--- NOTE | 2017-06-19 11:02 | Endo History and Physical ---
History & Physical Date of Service: Jun 19, 2017. Chief Complaint: dysphagia Referring Physician: Dr. Chema Waddell History of Present Illness 51 yo CM who presents for EGD secondary to dysphagia. Past Surgical History Hx Cardiac Surgery: No Hx Internal Defibrillator: No Hx Pacemaker: No Hx Abdominal Surgery: No Hx Post-Op Nausea and Vomiting: No Hx Cancer Surgery: No Hx Thoracic Surgery: No Hx Orthopedic: No Hx Urinary Tract Surgery: No Family History None Social History Smoking Status: Never Smoker Hx Substance Use: No Hx Alcohol Use: Yes ("very little") Allergies Coded Allergies: No Known Allergies (Verified , 06/19/17) Current Medications Reported Home Medications Medications Dose Route/Sig Max Daily Dose Days Date Category Neurontin (Gabapentin) 300 Mg Cap 300 Mg PO TID 06/18/17 Reported Naprosyn (Naproxen) 375 Mg Tab 375 Mg PO BID PRN 30 02/20/17 Rx Glucosamine Chondroitin (Hejzjlicoqz-Odawadtstum-Bkv C-) 1 Tab Tab 1 Tab PO BID 02/16/17 Reported Metformin HCl 500 Mg Tab 500 Mg PO BID 12/07/16 Reported Vital Signs Weight (Kilograms): 102.27 Height (Feet): 5 Height (Inches): 11 Date Time Temp Pulse Resp B/P (MAP) Pulse Ox O2 Delivery O2 Flow Rate FiO2 06/19/17 10:36 37.2 64 64 127/84 (98) 94 Room Air 06/18/17 15:15 36.8 74 18 135/88 (104) 96 Room Air Physical Exam General Appearance: WD/WN, no apparent distress Respiratory/Chest: Auscultation: breath sounds normal Cardiovascular: Heart Auscultation: RRR Abdomen: Bowel Sounds: normal Inspection & Palpation: soft, non-distended, no tenderness, guarding & rebound Assessment and Plan Assessment: 51 yo CM who presents for EGD secondary to dysphagia. Plan: Proceed with EGD.
--- NOTE | 2017-06-19 11:23 | Discharge Instructions ---
Endoscopy Patient Instructions Date / Procedure(s) Performed Jun 19, 2017. EGD Allergy Information Coded Allergies: No Known Allergies (Verified , 06/19/17) Discharge Date / Findings Jun 19, 2017. Schatzki's Ring s/p dilation Esophageal biopsies Hiatal hernia Gastritis s/p biopsies Medication Instructions OK to resume all medications today as prescribed Reported Home Medications Medications Dose Route/Sig Max Daily Dose Days Date Category Neurontin (Gabapentin) 300 Mg Cap 300 Mg PO TID 06/18/17 Reported Naprosyn (Naproxen) 375 Mg Tab 375 Mg PO BID PRN 30 02/20/17 Rx Glucosamine Chondroitin (Ccfpfgfceln-Xeqtyerjcmc-Olr C-) 1 Tab Tab 1 Tab PO BID 02/16/17 Reported Metformin HCl 500 Mg Tab 500 Mg PO BID 12/07/16 Reported Provider Instructions Activity Restrictions - No exercising or heavy lifting for 24 hours. - Do not drink alcohol the day of the procedure. - Do not drive a car or operate machinery until the day after the procedure. - Do not make any important decisions or sign important papers in 24 hours after the procedure. Following Day: - Return to full activity which may include returning to work/school. Diet Start your diet with liquids and light foods (jello, soup, juice, toast). Then eat your usual diet if not nauseated. Treatment For Common After Affects For mild abdominal pain, bloating, or excessive gas: - Rest - Eat lightly - Lie on right side Follow-Up Information Follow-up with Dr. Chema Waddell as scheduled Anesthesia Information What You Should Know You have had a procedure that required some medicine to reduce anxiety and discomfort. This treatment is called moderate sedation. After receiving the treatment, you may be sleepy, but you will be able to breathe on your own. The effects of the treatment may last for several hours. Follow these instructions along with Activity/Diet recommendations noted above: * Do NOT do anything where dizziness or clumsiness would be dangerous. * Rest quietly at home today, then you can be up and about tomorrow. * Have a responsible person stay with you the rest of today. * You may have had an I.V. today. If so, you may take the dressing off later today. Recommendations Call your doctor if: * Trouble breathing * Continuous vomiting for more than 24 hours * Temperature above 101 degrees * Severe abdominal pain or bloating * Pain not relieved by pain medicine ordered * There is increased drainage or redness from any incision * A large amount of rectal bleeding greater than 2-3 tablespoons. (If you had a polyp/s removed or have hemorrhoids, a small amount of blood - from the rectum is to be expected.) * You have any unanswered questions or concerns. IN THE EVENT OF A SERIOUS EMERGENCY, GO TO THE NEAREST EMERGENCY ROOM Your discharge instructions were prepared by provider Claus Lopez. Patient Instructions Signature Page Vahid Vang Patient (or Guardian) Signature/Date: I have read and understand the instructions given to me by my caregivers. Caregiver/RN/Doctor Signature/Date: The above-named patient and/or guardian has received patient instructions on this date. + Original Patient Signature Page (only) stays with chart. Please make copy for patient.
--- NOTE | 2017-06-19 11:23 | GI REPORT ---
Patient Name: Vahid Vang Procedure Date: 06/19/2017 11:07 AM Date of : 1965 Admit Type: Outpatient Age: 51 Gender: Male Attending MD: Claus Lopez DO Procedure: Upper GI endoscopy Providers: Claus Lopez DO Referring MD: Roseann Suarez Indications: Dysphagia Medicines: Monitored Anesthesia Care Complications: No immediate complications. Estimated Blood Loss: Estimated blood loss: none. Procedure: Pre-Anesthesia Assessment: - Prior to the procedure, a History and Physical was performed, and patient medications and allergies were reviewed. The patient's tolerance of previous anesthesia was also reviewed. The risks and benefits of the procedure and the sedation options and risks were discussed with the patient. All questions were answered, and informed consent was obtained. Prior Anticoagulants: The patient has taken no previous anticoagulant or antiplatelet agents. ASA Grade Assessment: II - A patient with mild systemic disease. After reviewing the risks and benefits, the patient was deemed in satisfactory condition to undergo the procedure. After obtaining informed consent, the endoscope was passed under direct vision. Throughout the procedure, the patient's blood pressure, pulse, and oxygen saturations were monitored continuously. The scope was introduced through the mouth, and advanced to the second part of duodenum. The upper GI endoscopy was accomplished without difficulty. The patient tolerated the procedure well. Findings: A moderate Schatzki ring (acquired) was found at the gastroesophageal junction. A TTS dilator was passed through the scope. Dilation with a 15-16.5-18 mm balloon dilator was performed to 18 mm. The dilation site was examined and showed moderate improvement in luminal narrowing. Multiple biopsies were obtained with cold forceps for histology in a targeted manner in the middle third of the esophagus. A small hiatal hernia was present. Localized mild inflammation characterized by erythema was found in the gastric antrum. Biopsies were taken with a cold forceps for histology. The examined duodenum was normal. Impression: - Moderate Schatzki ring. Dilated. - Small hiatal hernia. - Gastritis. Biopsied. - Normal examined duodenum. - Multiple biopsies were obtained in the middle third of the esophagus. Recommendation: - Resume previous diet. - Use Protonix (pantoprazole) 40 mg PO BID. - Await pathology results. - Repeat upper endoscopy PRN for retreatment. Claus Lopez DO 06/19/2017 11:22:45 AM This report has been signed electronically. Note Initiated On: 06/19/2017 11:07 AM Number of Addenda: 0 I attest to the content of the Intraoperative Record and orders documented therein, exceptions below {[id number]}
[2017-06-19 11:48] VITALS: BP 132/77; PULSE 72; O2SAT 96
--- NOTE | 2017-06-19 13:18 | Anesthesiology Progress Note ---
Anesthesia Post Op Note Date & Time Jun 19, 2017 at 13:15 Vital Signs Pain Intensity: 0 Vital Signs Past 12 Hours Date Time Temp Pulse Resp B/P (MAP) Pulse Ox O2 Delivery O2 Flow Rate FiO2 06/19/17 11:48 72 63 132/77 (95) 96 Room Air 06/19/17 11:33 72 72 126/79 (95) 97 Room Air 06/19/17 11:18 78 78 119/74 (89) 96 Nasal Cannula 4 06/19/17 10:36 37.2 64 64 127/84 (98) 94 Room Air Notes Mental Status: alert / awake / arousable, participated in evaluation Pt Amnestic to Procedure: Yes Nausea / Vomiting: adequately controlled Pain: adequately controlled Airway Patency, RR, SpO2: stable & adequate BP & HR: stable & adequate Hydration State: stable & adequate Anesthetic Complications: no major complications apparent The patient's respiration rate was 16 to 20.
== END | disposition home or self-care (01) ==
LOC: C.GI 06-18 14:51
PROVIDERS: ATTEND Internal Medicine
DX: K22.2 Esophageal obstruction (principal); K44.9 Diaphragmatic hernia without obstruction or gangrene; K29.70 Gastritis, unspecified, without bleeding; R13.10 Dysphagia, unspecified; K21.9 Gastro-esophageal reflux disease without esophagitis; E11.9 Type 2 diabetes mellitus without complications; E66.9 Obesity, unspecified

== ENCOUNTER → 2017-06-26 | Outpatient (CLI) | payer OTHER ==
[~2017-06-26] MED LIST changes: -FENTANYL CITRATE INJ 50 MCG/1 ML 2 ML VIAL ONE; -LIDOCAINE HCL 2% 2 ML VIAL (20MG/ML) ONE; -PROPOFOL IV EMULSION 10 MG/ML 20 ML VIAL IV ONE
[2017-06-26 13:21] LABS: BLOOD UREA NITROGEN 9 mg/dl (7-18); CALCIUM 8.9 mg/dl (8.5-10.1); CARBON DIOXIDE 26 mmol/L (21-32); CREATININE 1.09 mg/dl (0.60-1.40); GLUCOSE 251 mg/dl (70-99); SODIUM 136 mmol/L (136-145)
[2017-06-26 13:24] LABS: CHOLESTEROL 185 mg/dl (0-200); HEMOGLOBIN A1C 10.2 % (4.5-5.6); LDL CHOLESTEROL (DIRECT) 137 mg/dl
== END | disposition home or self-care (01) ==
LOC: C.LABSPEC 12:42
PROVIDERS: ATTEND Internal Medicine
DX: Z00.00 Encounter for general adult medical examination without abnormal findings (principal); E11.9 Type 2 diabetes mellitus without complications

== ENCOUNTER → 2017-09-28 | Outpatient (CLI) | payer OTHER ==
[2017-09-28 14:57] LABS: BLOOD UREA NITROGEN 13 mg/dl (7-18); CALCIUM 8.8 mg/dl (8.5-10.1); CARBON DIOXIDE 26 mmol/L (21-32); CHOLESTEROL 114 mg/dl (0-200); CREATININE 1.19 mg/dl (0.60-1.40); GLUCOSE 129 mg/dl (70-99); LDL CHOLESTEROL (DIRECT) 140 mg/dl; POTASSIUM 4.2 mmol/L (3.5-5.1); SODIUM 136 mmol/L (136-145)
[2017-09-29 06:30] LABS: HEMOGLOBIN A1C 6.9 % (4.5-5.6)
== END | disposition home or self-care (01) ==
LOC: C.LABSPEC 13:52
PROVIDERS: ATTEND Internal Medicine
DX: Z00.00 Encounter for general adult medical examination without abnormal findings (principal); E11.65 Type 2 diabetes mellitus with hyperglycemia; E78.5 Hyperlipidemia, unspecified

== ENCOUNTER → 2017-10-12 | Outpatient (CLI) | payer OTHER ==
[2017-10-19 18:24] LABS: FECAL OCCULT BLOOD #1 NEGATIVE (NEGATIVE); FECAL OCCULT BLOOD #2 NEGATIVE (NEGATIVE); FECAL OCCULT BLOOD #3 NEGATIVE (NEGATIVE)
--- NOTE | 2017-10-22 12:42 | CODING QUERY NO DIAGNOSIS ---
TREATMENT RENDERED WITHOUT A DIAGNOSIS To promote full compliance with coding requirements relating to patient care, physician participation is requested in all cases of urgent care physician uncertainty. Please assist us with providing a diagnosis/symptom for the test(s) below: A diagnosis/symptom was not documented on your Order. A valid diagnosis/symptom is required to bill all insurances. Please remember that we are unable to code a diagnosis of rule out, probable, possible, questionable, or suspected. Tests that require a diagnosis: DOS: 10/12/17 (Diagnosis on attached order is covered by patient sticker) * Fecal Occult Blood Panel DIAGNOSIS: Provider Signature: Date: Thank you Cecilia Bonilla Health Information Management Once completed, please kindly fax back to [phone] For questions please call [phone]
== END | disposition home or self-care (01) ==
LOC: C.LABSPEC 17:35
PROVIDERS: ATTEND Internal Medicine
DX: Z12.11 Encounter for screening for malignant neoplasm of colon (principal)

== ENCOUNTER 2019-03-19 12:14 | Inpatient (IN) ==
[2019-03-19] MEDS ORDERED: HYDROmorphone INJ 0.5 MG/0.5 ML SYR IV STA (12:35)
[2019-03-19] MEDS ORDERED: ONDANSETRON INJ 2 MG/ML 2 ML VIAL IV STA (12:35)
[2019-03-19] MEDS ORDERED: CIPROFLOXACIN 400 MG/200 ML BAG IV STA (12:36)
[2019-03-19] MEDS ORDERED: metroNIDAZOLE 500 MG/100 ML BAG IV STA (12:36)
[2019-03-19] MEDS ORDERED: SODIUM CHLORIDE 0.9% 1000ML 1,000 ML IV SCH (12:45)
[2019-03-19] MEDS ORDERED: SODIUM CHLORIDE 0.9% 1000ML 500 ML IV ONE (12:49)
[2019-03-19 12:57] LABS: Basophils # (auto) 0.01 K/uL (0-0.2); Basophils % (auto) 0.1 %; Eosinophils # (auto) 0.04 K/uL (0-0.5); Eosinophils % (auto) 0.3 %; Hematocrit (blood only) 45.3 % (42-52); Hemoglobin 15.6 g/dL (14.0-18.0); Immature Granulocytes # (auto) 0.02 K/uL (0.00-0.02); Immature Granulocytes % (auto) 0.2 %; Lymphocytes # (auto) 1.97 K/uL (1.2-3.4); Lymphocytes % (auto) 15.9 %; Mean Corpuscular Hemoglobin 31.2 pg (25-34); Mean Corpuscular Hgb Conc 34.4 g/dL (32-36); Mean Corpuscular Volume 90.6 fL (80-100); Mean Platelet Volume 10.7 fL (7.4-10.4); Monocytes # (auto) 0.64 K/uL (0.11-0.59); Monocytes % (auto) 5.2 %; Neutrophils # (auto) 9.71 K/uL (1.4-6.5); Neutrophils % (auto) 78.3 %; Platelet Count 186 K/uL (130-400); RDW Coefficient of Variation 13.4 % (11.5-14.5); RDW Standard Deviation 43.8 fL (36.4-46.3); White Blood Count 12.39 K/uL (4.8-10.8)
[2019-03-19 13:12] LABS: Albumin Level 3.8 gm/dl (3.4-5.0); BUN Creatinine Ratio 9.5 (10-20); Calcium 8.6 mg/dl (8.5-10.1); Creatinine Clr Calc Pharmacy 103.3 ml/min; Est GFR (African American) 94.3; Est GFR (Non-African American) 81.4; Potassium 3.8 mmol/L (3.5-5.1)
[2019-03-19 13:15] LABS: Albumin Globulin Ratio 1.1 (0.9-2); Bilirubin,Total 0.9 mg/dl (0.2-1); Globulin 3.5 gm/dl (2.5-4.0); Total Protein 7.3 gm/dl (6.4-8.2)
--- NOTE | 2019-03-19 14:07 | History & Physical Report ---
Date of Service March 19, 2019 Assessment & Plan (1) Abscess of sigmoid colon: Admit to [facility] on telemetry Vital signs every 4 hours Keep n.p.o. IV fluid hydration with NSS plus potassium Pain management and antinausea management Consults general surgery Started IV antibiotics ciprofloxacin 400 mg IV every 12 hours and metronidazole 500 mg IV every 8 hours DVT prophylaxis Heparin 5000 units twice daily SCDs and teds Full code Present on Admission?: Yes (2) Diverticulitis: As the above Present on Admission?: Yes (3) GERD (gastroesophageal reflux disease): Continue pantoprazole 40 mg p.o. twice daily Present on Admission?: Yes (4) Diabetes mellitus, type 2: Diabetic control per pharmacy. A1c pending. Patient needs tighter control. Accu-Cheks before meals and at bedtime Hold oral hypoglycemic agents while patient in the hospital to prevent hypoglycemia and kidney injury in case of need for contrast in radiological procedures. Continue gabapentin 100 mg p.o. 3 times daily for neuropathy. Present on Admission?: Yes (5) Hyperlipidemia: Lipid panel pending. Continue atorvastatin 20 mg p.o. nightly Present on Admission?: Yes History of Present Illness Chief Complaint: Left flank pain Primary Care Provider: Simon Cole MD The patient is a 53 years old male with past medical history of hyperlipidemia, diabetes mellitus type 2, GERD, lumbar spondylosis, with herniation who presents to the emergency room with a complaint of left flank pain that has been ongoing for 2 days. Patient reports nothing improves his pain. Patient denies fever, chills, chest pain, shortness of breath, headache, syncope, near syncope, hematochezia, hematuria, melena. Labs are reviewed: Sodium 136, potassium 3.8, chloride 106, carbon dioxide 25, anion gap 6, BUN 10, creatinine 1.03, GFR 81.4, glucose 195, hemoglobin A1c 7.6, as of September 21, 2018, lactate 1.9, calcium 8.6, AST 12, ALT 40, alkaline phosphatase 64, albumin 3.8, globulin 3.5, lipase 98. Urine yellow with specific gravity of 1.0 33 with 3+ glucose and trace ketones. UA negative for blood negative for nitrates negative for bilirubin and negative for leukocyte esterase. Abdominal CT there is a moderate diverticulosis of the left colon with evidence of acute sigmoid diverticulitis. There are punctuate foci of intraperitoneal free air indicating perforation. A 1.5 cm abscess is suggested along the lateral margin of the sigmoid colon. Trace free fluid in the pelvis is likely on the reactive basis. Hepatic steatosis. There is a 8 mm right lower lobe pulmonary nodule. This has not been changed since February 16, 2017. Nonemergent follow-up with pulmonology is recommended. Decision was made to admit patient to [facility] on telemetry for perforated diverticulitis and large colon abscess. Allergies Allergy/AdvReac Type Severity Reaction Status Date / Time No Known Allergies Allergy Verified 03/19/19 13:19 Home Medications Home Medications Medication Instructions Recorded Confirmed Type atorvastatin [Lipitor] 20 mg PO HS 12/22/17 03/19/19 History gabapentin [Neurontin] 100 mg PO TID 12/22/17 03/19/19 History glipizide [Glucotrol] 10 mg PO BID 12/22/17 03/19/19 History pantoprazole [Protonix] 40 mg PO BID 12/22/17 03/19/19 History metformin [Glucophage XR] 1,000 mg PO BID 04/08/18 03/19/19 History naproxen sodium 220 mg tablet 220 mg PO BID PRN 02/28/19 03/19/19 History Reyna's Leg Cramps 2 - 3 tab SUBLINGUAL Q4H PRN MDD 6 03/19/19 03/19/19 History doses amoxicillin-pot clavulanate 1 tab PO TID 14 Days #42 tab 03/19/19 03/19/19 Rx [Augmentin] Past Med/Surg History Medical History Diabetes mellitus, type 2 (Chronic) Diverticulitis (Resolved) Diverticulitis of both large and small intestine with perforation (Resolved) Encounter for pre-operative examination (Resolved) Esophagitis (Resolved) GERD (gastroesophageal reflux disease) (Chronic) History of esophageal dilatation (Resolved) Hyperlipidemia (Chronic) Lumbar disc herniation (Chronic) Lumbar facet joint syndrome (Chronic) Lumbar pain (Chronic) Lumbar spondylosis (Chronic) Surgical History History of colonoscopy (Resolved) History of esophagogastroduodenoscopy (EGD) (Resolved) with dilation History of left inguinal hernia repair (Resolved) History of tooth extraction (Resolved) wisdom teeth Family History Grandmother Family history of diabetes mellitus paternal Mother Family history of diabetes mellitus Social History Preferred Language: Czech Communication Ability: Effective Director Corporate Security Required: No Beliefs That Will Affect Care: None Current Living Situation: Spouse Other Information That Helps Us Care for You: No Feels Safe at Home: Yes Safety Concerns: Feels Safe At This Time Smoking Status: Never smoker Do You Dip or Chew Tobacco: No ; Second Hand Exposure: No ; Tobacco Cessation Education Requested by Patient: No Hx Alcohol Use: Yes Alcohol type: beer and hard liquor Hx Substance Use: No Review of Systems Review of Systems: All systems reviewed & are unremarkable except as noted in HPI & below Physical Exam Constitutional: WD/WN, vitals as above well developed and + obese Eyes: PERRL, conjunctivae normal, anicteric sclerae ENMT: external ear and nose normal, oropharynx normal Neck: trachea midline, no thyromegaly Respiratory: normal respiratory effort, lungs clear to auscultation Cardiovascular: RRR, no murmur, no edema Gastrointestinal (Abdomen): Inspection/Auscultation: + abdomen distended Percussion/Palpation: + abdomen tender and abdomen soft Pain is located at the left flank. Tender on palpation, otherwise abdomen soft. Musculoskeletal: no cyanosis or clubbing, extremities motor strength 5/5 Skin: no rashes, warm and dry Neurologic: patellar DTR's 2+ bilat, sensation intact Psychiatric: A+Ox3, euthymic affect Genitourinary: no testicular masses, no penis abnormality Lymphatic: no cervical or axillary lymphadenopathy Results & Data Vital Signs (Past 12 Hours) Vital Signs Temp Pulse Pulse Resp BP BP Pulse Ox 03/19/19 13:22 83 96 03/19/19 13:21 83 18 150/87 H 96 03/19/19 12:18 36.9 C 131 H 18 154/76 H 98 Code Status & VTE Plan Code Status Full code VTE Prophylaxis Plan VTE Prophylaxis will be ordered: Yes PG Care Time/CCT Total # of Minutes Spent Total Time Spent with Patient: Total time spent is greater than 50% in coordination of care (as documented) at patient's floor/unit and/or counseling patient: Coding Level of Care Code 11638 Initial Inpt Care Lvl 3 Diagnoses Abscess of sigmoid colon K63.0 Diverticulitis K57.92 GERD (gastroesophageal reflux disease) K21.9 Diabetes mellitus, type 2 E11.9 Hyperlipidemia E78.5
--- NOTE | 2019-03-19 14:23 | Emergency Department Note ---
Entered by Isabella Hopkins acting as a scribe for History of Present Illness General Chief complaint: Flank Pain Stated complaint: PAIN LOWER L SIDE, ER DR REFERRED Source: patient Mode of arrival: ambulatory Limitations: no limitations History of Present Illness Onset (ago): day(s) 2 Location: back (left sided flank) Radiation: non-radiation Pain Consistency: + constant Maximum Pain Intensity: 4 Current Pain Intensity: 4 Relieved By: + none Exacerbated By: + none Associated symptoms: no fever/chills Treatments prior to arrival: none The patient is a 53 year old male who presents to the ED with complaints of persistent left sided flank pain. He rates his discomfort as a 4/10 in severity. He was here early this morning and had a CT scan. The scan was originally read by [facility] as a simple diverticulitis without perforation or abscess. The images were over read by our local radiologist indicating a small abscess and microperforation. Patient had an elevated WBC. He states his pain increased this morning. He was called back to the emergency department for likely admission. Currently the patient states he is having some discomfort but is in no distress. He denies any fevers. Home Medications Home Medications Medication Instructions Recorded Confirmed Type atorvastatin [Lipitor] 20 mg PO HS 12/22/17 03/19/19 History gabapentin [Neurontin] 100 mg PO TID 12/22/17 03/19/19 History glipizide [Glucotrol] 10 mg PO BID 12/22/17 03/19/19 History pantoprazole [Protonix] 40 mg PO BID 12/22/17 03/19/19 History metformin [Glucophage XR] 1,000 mg PO BID 04/08/18 03/19/19 History naproxen sodium 220 mg tablet 220 mg PO BID PRN 02/28/19 03/19/19 History Reyna's Leg Cramps 2 - 3 tab SUBLINGUAL Q4H PRN MDD 6 03/19/19 03/19/19 History doses amoxicillin-pot clavulanate 1 tab PO TID 14 Days #42 tab 03/19/19 03/19/19 Rx [Augmentin] Allergies Allergy/AdvReac Type Severity Reaction Status Date / Time No Known Allergies Allergy Verified 03/19/19 13:19 Past Med/Surg History Medical History Diabetes mellitus, type 2 (Chronic) Diverticulitis (Resolved) Diverticulitis of both large and small intestine with perforation (Resolved) Encounter for pre-operative examination (Resolved) Esophagitis (Resolved) GERD (gastroesophageal reflux disease) (Chronic) History of esophageal dilatation (Resolved) Hyperlipidemia (Chronic) Lumbar disc herniation (Chronic) Lumbar facet joint syndrome (Chronic) Lumbar pain (Chronic) Lumbar spondylosis (Chronic) Surgical History History of colonoscopy (Resolved) History of esophagogastroduodenoscopy (EGD) (Resolved) with dilation History of left inguinal hernia repair (Resolved) History of tooth extraction (Resolved) wisdom teeth Family History Grandmother Family history of diabetes mellitus paternal Mother Family history of diabetes mellitus Social History Preferred Language: Dominican Communication Ability: Effective 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 and A total of 10 systems reviewed and were otherwise negative Physical Exam Vital Signs Vital Signs - 24 hr 03/19/19 12:18 03/19/19 13:21 03/19/19 13:22 Temperature 36.9 C Temperature Source Oral Pulse Rate 131 H 83 Pulse Rate [Left] 83 Respiratory Rate 18 18 Respiratory Effort / Characteristics Non-Labored Spontaneous Respiratory Depth Normal Normal Blood Pressure 154/76 H Blood Pressure [Left Arm] 150/87 H Blood Pressure Mean 102 Blood Pressure Mean [Left Arm] 108 Blood Pressure Position Sitting Blood Pressure Position [Left Arm] Lying Pulse Oximetry 98 96 96 Oxygen Delivery Method Room Air Room Air Room Air Sepsis Recent Fever Within 48 Hours No Sepsis Action Taken by Nursing No Action Required 03/19/19 14:11 Temperature Temperature Source Pulse Rate Pulse Rate [Left] 78 Respiratory Rate 18 Respiratory Effort / Characteristics Respiratory Depth Normal Blood Pressure Blood Pressure [Left Arm] 145/89 H Blood Pressure Mean Blood Pressure Mean [Left Arm] 107 Blood Pressure Position Blood Pressure Position [Left Arm] Pulse Oximetry 94 Oxygen Delivery Method Room Air Sepsis Recent Fever Within 48 Hours Sepsis Action Taken by Nursing Vital signs reviewed. General: Well-appearing 53, in no significant distress. HEENT: No scleral icterus, PERRLA, neck supple. Atraumatic. Cardiovascular: Regular rate and rhythm, no extra sounds. Pulmonary: Clear to auscultation bilaterally, normal work of breathing. Abdomen: Soft, tender along LLQ, nondistended, positive bowel sounds. Musculoskeletal: Atraumatic, no peripheral edema. Neurologic: Patient awake alert and oriented x 3, full strength in all 4 extremities. Skin: Warm, dry, no rash Course Course 1230: The patient was evaluated in room B3 and a complete history and physical were performed. 1255: I discussed the patients case with Dr. Ray, [facility]. The patient will be further evaluated. 1310: I reevaluated the patient. I discussed his results and my recommendation he remain in the hospital for further evaluation and management and he is agreeable with the plan. Consultations Consultation #1: I discussed the patients case with Dr. Ray, [facility]. The patient will be further evaluated. Time: 12:55 Administered Medications Atorvastatin Calcium (Lipitor) 20 mg PO HS VALORIE Stop: 04/18/19 20:59 Last Admin: 03/19/19 21:44 Dose: 20 mg Documented by: [id number] Gabapentin (Neurontin) 100 mg PO TID VALORIE Stop: 04/18/19 14:34 Last Admin: 03/20/19 14:15 Dose: 100 mg Documented by: [id number] Admin: 03/20/19 08:03 Dose: 100 mg Documented by: [id number] Admin: 03/19/19 21:45 Dose: 100 mg Documented by: [id number] Admin: 03/19/19 16:03 Dose: 100 mg Documented by: [id number] Heparin Sodium (Porcine) (Heparin Sodium (Porcine)) 5,000 units SQ Q12 VALORIE Stop: 04/18/19 20:59 Last Admin: 03/20/19 08:03 Dose: 5,000 units Documented by: [id number] Cosigned by: [id number] Admin: 03/19/19 21:44 Dose: 5,000 units Documented by: [id number] Cosigned by: [id number] Ciprofloxacin (Cipro) 400 mg in 200 mls @ 100 mls/hr IV Q12H VALORIE; Protocol Stop: 03/30/19 01:59 Last Admin: 03/20/19 14:14 Dose: 100 mls/hr Documented by: [id number] Infusion: 03/20/19 03:59 Dose: 0 mls/hr Documented by: [id number] Admin: 03/20/19 01:56 Dose: 100 mls/hr Documented by: [id number] Metronidazole (Flagyl) 500 mg in 100 mls @ 100 mls/hr IV Q8H VALORIE; Protocol Stop: 03/29/19 21:59 Last Infusion: 03/20/19 15:21 Dose: 0 mls/hr Documented by: [id number] Admin: 03/20/19 14:15 Dose: 100 mls/hr Documented by: [id number] Infusion: 03/20/19 06:38 Dose: 0 mls/hr Documented by: [id number] Admin: 03/20/19 05:42 Dose: 100 mls/hr Documented by: [id number] Infusion: 03/19/19 23:02 Dose: 0 mls/hr Documented by: [id number] Admin: 03/19/19 21:51 Dose: 100 mls/hr Documented by: [id number] Potassium Chloride/Sodium Chloride (Normal Saline W/20 Meq Kcl) 20 meq in 1,000 mls @ 100 mls/hr IV .Q10H VALORIE Stop: 04/18/19 15:29 Last Admin: 03/20/19 10:37 Dose: 100 mls/hr Documented by: [id number] Infusion: 03/20/19 10:37 Dose: 100 mls/hr Documented by: [id number] Admin: 03/20/19 00:58 Dose: 100 mls/hr Documented by: [id number] Infusion: 03/20/19 00:58 Dose: 100 mls/hr Documented by: [id number] Admin: 03/19/19 15:22 Dose: 100 mls/hr Documented by: [id number] Ketorolac Tromethamine (Toradol) 30 mg IV Q6H PRN PRN Reason: Pain Stop: 03/24/19 14:34 Last Admin: 03/20/19 10:35 Dose: 30 mg Documented by: [id number] Pantoprazole Sodium (Protonix) 40 mg PO BID VALORIE Stop: 04/18/19 20:59 Last Admin: 03/20/19 08:03 Dose: 40 mg Documented by: [id number] Admin: 03/19/19 21:45 Dose: 40 mg Documented by: [id number] Discontinued Medications Hydromorphone HCl (Dilaudid) 0.5 mg IV NOW STA Stop: 03/19/19 12:36 Last Admin: 03/19/19 13:04 Dose: 0.5 mg Documented by: [id number] Hydromorphone HCl (Dilaudid) 0.5 mg IV Q2H PRN PRN Reason: Pain Stop: 04/02/19 18:04 Last Admin: 03/20/19 11:54 Dose: 0.5 mg Documented by: [id number] Admin: 03/20/19 08:06 Dose: 0.5 mg Documented by: [id number] Admin: 03/20/19 05:04 Dose: 0.5 mg Documented by: [id number] Admin: 03/20/19 02:44 Dose: 0.5 mg Documented by: [id number] Admin: 03/20/19 00:19 Dose: 0.5 mg Documented by: [id number] Admin: 03/19/19 21:42 Dose: 0.5 mg Documented by: [id number] Admin: 03/19/19 18:28 Dose: 0.5 mg Documented by: [id number] Sodium Chloride (Nss 1000ml) 1,000 mls @ 150 mls/hr IV .Q6H40M VALORIE Stop: 03/19/19 19:24 Last Infusion: 03/19/19 15:26 Dose: 0 mls/hr Documented by: [id number] Admin: 03/19/19 13:39 Dose: 150 mls/hr Documented by: [id number] Ciprofloxacin (Cipro) 400 mg in 200 mls @ 100 mls/hr IV NOW STA; Protocol Stop: 03/19/19 14:35 Last Infusion: 03/19/19 15:26 Dose: 0 mls/hr Documented by: [id number] Admin: 03/19/19 13:05 Dose: 100 mls/hr Documented by: [id number] Metronidazole (Flagyl) 500 mg in 100 mls @ 100 mls/hr IV NOW STA Stop: 03/19/19 13:35 Last Infusion: 03/19/19 14:07 Dose: 0 mls/hr Documented by: [id number] Admin: 03/19/19 13:06 Dose: 100 mls/hr Documented by: [id number] Sodium Chloride (Nss 1000ml) 500 mls @ 999 mls/hr IV .Q31M ONE Stop: 03/19/19 13:19 Last Infusion: 03/19/19 13:39 Dose: 0 mls/hr Documented by: [id number] Admin: 03/19/19 13:06 Dose: 999 mls/hr Documented by: [id number] Insulin Aspart (Novolog Flexpen) 0 units SC Q6 VALORIE Stop: 04/18/19 15:29 Last Admin: 03/20/19 11:52 Dose: 8 units Documented by: [id number] Cosigned by: [id number] Admin: 03/20/19 06:20 Dose: Not Given Documented by: [id number] Cosigned by: [id number] Admin: 03/19/19 23:38 Dose: Not Given Documented by: [id number] Cosigned by: [id number] Admin: 03/19/19 18:17 Dose: Not Given Documented by: [id number] Cosigned by: [id number] Admin: 03/19/19 16:03 Dose: Not Given Documented by: [id number] Cosigned by: [id number] Morphine Sulfate (Morphine Sulfate) 2 mg IV Q2H PRN PRN Reason: Pain Stop: 04/02/19 14:34 Last Admin: 03/19/19 16:12 Dose: 2 mg Documented by: [id number] Ondansetron HCl (Zofran) 4 mg IV NOW STA Stop: 03/19/19 12:36 Last Admin: 03/19/19 13:04 Dose: 4 mg Documented by: [id number] Medical Decision Making Differential Diagnosis Differential diagnoses includes but is not limited to gastritis, peptic ulcer disease, GERD, gallbladder disease, pancreatitis, small bowel obstruction, acute coronary syndrome, pericarditis, ischemic bowel, irritable bowel disease, irritable bowel syndrome, appendicitis, diverticulitis, malignancy, hernia, urinary tract infection, torsion, perforation, trauma, infectious. Medical Records Attestation: I reviewed the patient's medical records. Home Medications Current Medication List: was personally reviewed by me Laboratory Data Attestation: I reviewed the patient's lab results. Result diagrams: 03/20/19 06:25 03/20/19 06:25 Lab Results 03/19/19 03/19/19 03/19/19 Range/Units 12:30 12:30 12:30 WBC 12.39 H (4.8-10.8) K/uL RBC 5.00 (4.7-6.1) M/uL Hgb 15.6 (14.0-18.0) g/dL Hct 45.3 (42-52) % MCV 90.6 (80-100) fL MCH 31.2 (25-34) pg MCHC 34.4 (32-36) g/dL RDW Std Deviation 43.8 (36.4-46.3) fL RDW Coeff of Nelly 13.4 (11.5-14.5) % Plt Count 186 (130-400) K/uL MPV 10.7 H (7.4-10.4) fL Immature Gran % (Auto) 0.2 % Neut % (Auto) 78.3 % Lymph % (Auto) 15.9 % Crockett % (Auto) 5.2 % Eos % (Auto) 0.3 % Baso % (Auto) 0.1 % Immature Gran # (Auto) 0.02 (0.00-0.02) K/uL Neut # (Auto) 9.71 H (1.4-6.5) K/uL Lymph # (Auto) 1.97 (1.2-3.4) K/uL Crockett # (Auto) 0.64 H (0.11-0.59) K/uL Eos # (Auto) 0.04 (0-0.5) K/uL Baso # (Auto) 0.01 (0-0.2) K/uL Sodium 136 (136-145) mmol/L Potassium 3.8 (3.5-5.1) mmol/L Chloride 106 (98-107) mmol/L Carbon Dioxide 25 (21-32) mmol/L Anion Gap 6.0 (3-11) BUN 10 (7-18) mg/dl Creatinine 1.03 (0.6-1.4) mg/dl Est Cr Clr Drug Dosing 103.3 ml/min Est GFR ( Amer) 94.3 Est GFR (Non-Af Amer) 81.4 BUN/Creatinine Ratio 9.5 L (10-20) Glucose 195 H (70-99) mg/dl Calcium 8.6 (8.5-10.1) mg/dl Total Bilirubin 0.9 (0.2-1) mg/dl AST 12 L (15-37) U/L ALT 40 (12-78) U/L Alkaline Phosphatase 64 (45-117) U/L NT-Pro-B Natriuret Pep 24 (0-900) pg/ml Total Protein 7.3 (6.4-8.2) gm/dl Albumin 3.8 (3.4-5.0) gm/dl Globulin 3.5 (2.5-4.0) gm/dl Albumin/Globulin Ratio 1.1 (0.9-2) Lipase 98 (73-393) U/L TSH 2.510 (0.300-4.500) uIu/ml Blood Pressure Blood Pressure Findings: Elevated blood pressure Blood Pressure Disposition: further management by hospitalist MDM Narrative This patient was evaluated and appeared to be in no significant distress. IV access was obtained and laboratory work was drawn. Patient's records were reviewed. IV hydration was initiated and the patient was medicated with IV Dilaudid and Zofran. IV Cipro and Flagyl were initiated. Dr. Ray of the hospitalist service was consulted and will evaluate the patient for further management. Impression & Plan Diverticulitis large intestine w/o perforation or abscess w/o bleeding Discharge Plan Visit Data *Final* Discharge Date/Time: 03/19/19 14:26 Chief Complaint: Flank Pain Stated Complaint: PAIN LOWER L SIDE, ER DR REFERRED ED Provider: Marie Lilly Discharge Problem: Diverticulitis large intestine w/o perforation or abscess w/o bleeding Patient Disposition: Admitted As Inpatient Discharge Instructions Interventions: ED Discharge Assessment Last Done: 03/19/19 14:26 The scribe's documentation has been prepared under my direction and personally reviewed by me in its entirety. I confirm that the note above accurately reflects all work, treatment, procedures, and medical decision making performed by me.
[2019-03-19] MEDS ORDERED: DEXTROSE 50% 50 ML SYRINGE IV PRN (14:35)
[2019-03-19] MEDS ORDERED: GLUCOSE 40% GEL 15 GM TUBE PO PRN (14:35)
[2019-03-19] MEDS ORDERED: ALUMINUM/MAGNESIUM SUSP 30 ML UDC PO PRN (14:35)
[2019-03-19] MEDS ORDERED: CARBOHYDRATES FOR HYPOGLYCEMIA PO PRN (14:35)
[2019-03-19] MEDS ORDERED: [UNRECOGNIZED DRUG - OTHER] SL PRN (14:35)
[2019-03-19] MEDS ORDERED: ACETAMINOPHEN 325 MG TAB PO PRN (14:35)
[2019-03-19] MEDS ORDERED: MoRPHine SULFATE 2 MG/ML CARP IV PRN (14:35)
[2019-03-19] MEDS ORDERED: MAGNESIUM HYDROXIDE SUSP 30 ML UDC PO PRN (14:35)
[2019-03-19] MEDS ORDERED: PROMETHAZINE HCL 25 MG in SODIUM CHLORIDE 0.9% 50 ML IV PRN (14:35)
[2019-03-19] MEDS ORDERED: GLUCOSE 10 TABS/TUBE PO PRN (14:35)
[2019-03-19] MEDS ORDERED: GLUCAGON FOR INJ 1 MG VIAL SQ PRN (14:35)
[2019-03-19] MEDS ORDERED: PHARMACY GLYCEMIC MGMT CONSULT PRN (15:04)
[2019-03-19] MEDS: NSS + 20MEQ KCL 20 MEQ/1,000 ML BAG IV SCH (15:22)
[2019-03-19 15:36] LABS: Thyroid Stimulating Hormone 2.51 uIu/ml (0.300-4.500)
[2019-03-19] MEDS: INSULIN ASPART 100 UNITS/ML 3 ML PEN SC SCH ×3 (16:03→23:38)
[2019-03-19] MEDS: GABAPENTIN 100 MG CAP PO SCH ×2 (16:03→21:45)
--- NOTE | 2019-03-19 16:21 | Surgery Consultation ---
Date of Consultation March 19, 2019 Assessment & Plan (1) Abscess of sigmoid colon: Patient admitted by hospitalist service. No indication for surgical intervention at this time. I discussed with patient and patient's that we will continue conservative treatment and hopefully avoid need for surgical intervention during this hospital stay. Dr. Price will be in tomorrow to assess patient. Continue IV Cipro and Flagyl - abx management per primary service. Continue NPO status. IVF, IV pain meds All questions answered. (2) Diverticulitis: Supervising Physician Co-Signing Physician Notes labs and imaging reviewed, discussed with MERRILL Edwards. 53 y/o with 3rd episode of diverticulitis in past few years. Called back for small abscess seen by our radiology overread this morning. Reviewed images, Small 1.5cm phlegmon vs. abscess, microperforation (hallmark of diverticulitis), no drainable collection, no free air. Recommend IV abx, bowel rest. No surgical intervention indicated at this time. Should discuss elective sigmoidectomy in future once this episode resolves. Had colonoscopy with Dr. Lopez last year, normal per report. History of Present Illness Reason for Consultation: Diverticulitis with Abscess Attending Physician: Dana Ray MD History of Present Illness Vahid is a 53-year-old male with past medical history significant for DM Type 2, hyperlipidemia, and diverticulitis who presented to [facility] overnight with complaint of severe left lower quadrant pain that started a couple of hours before coming to ED. CT scan was read overnight by [facility] and revealed acute diverticulitis of the sigmoid colon and patient was discharged to home with Augmentin. CT scan was reviewed by [facility] Radiology and patient was called to come back to hospital due to 1.5 cm abscess along the lateral aspect of the sigmoid colon. Patient was admitted by hospitalist service and IV antibiotics were started. The patient reports that he has had 2 previous episodes of acute diverticulitis. His first episode was 3 years ago, which resulted in a 5 day hospital stay. His second episode was 1 year after that and he was treated with outpatient antibiotics. It has been 2 years since his most recent episode of diverticulitis. Patient does follow with Dr. Lopez, GI, and his most recent colonoscopy was 1 year ago, which, per patient, was "fine." Currently, patient reports that his abdominal pain is significantly improved since he first presented to the ED. He denies nausea or vomiting. He denies fever or chills. He denies previous abdominal surgeries. WBC elevated at admission at 12.39 Allergies Allergy/AdvReac Type Severity Reaction Status Date / Time No Known Allergies Allergy Verified 03/19/19 13:19 Home Medications Home Medications Medication Instructions Recorded Confirmed Type atorvastatin [Lipitor] 20 mg PO HS 12/22/17 03/19/19 History gabapentin [Neurontin] 100 mg PO TID 12/22/17 03/19/19 History glipizide [Glucotrol] 10 mg PO BID 12/22/17 03/19/19 History pantoprazole [Protonix] 40 mg PO BID 12/22/17 03/19/19 History metformin [Glucophage XR] 1,000 mg PO BID 04/08/18 03/19/19 History naproxen sodium 220 mg tablet 220 mg PO BID PRN 02/28/19 03/19/19 History Reyna's Leg Cramps 2 - 3 tab SUBLINGUAL Q4H PRN MDD 6 03/19/19 03/19/19 History doses amoxicillin-pot clavulanate 1 tab PO TID 14 Days #42 tab 03/19/19 03/19/19 Rx [Augmentin] Patient History Medical History Diabetes mellitus, type 2 (Chronic) Diverticulitis (Resolved) Diverticulitis of both large and small intestine with perforation (Resolved) Encounter for pre-operative examination (Resolved) Esophagitis (Resolved) GERD (gastroesophageal reflux disease) (Chronic) History of esophageal dilatation (Resolved) Hyperlipidemia (Chronic) Lumbar disc herniation (Chronic) Lumbar facet joint syndrome (Chronic) Lumbar pain (Chronic) Lumbar spondylosis (Chronic) Surgical History History of colonoscopy (Resolved) History of esophagogastroduodenoscopy (EGD) (Resolved) with dilation History of left inguinal hernia repair (Resolved) History of tooth extraction (Resolved) wisdom teeth Family History Grandmother Family history of diabetes mellitus paternal Mother Family history of diabetes mellitus Social History Preferred Language: Arabic Communication Ability: Effective Glass Fitter Required: No Beliefs That Will Affect Care: None Current Living Situation: Spouse Feels Safe at Home: Yes Smoking Status: Never smoker Second Hand Exposure: No ; Hx Alcohol Use: Yes Alcohol type: beer and hard liquor Hx Substance Use: No Review of Systems Gastrointestinal: as per Subjective / HPI and + abdominal pain; no nausea and no vomiting Physical Exam Constitutional: WD/WN, vitals as above no acute distress Patient afebrile. Respiratory: normal respiratory effort; no respiratory distress and no labored breathing Gastrointestinal (Abdomen): Inspection/Auscultation: abdomen normal to inspection and + abdomen distended (mild distention ) Percussion/Palpation: + abdomen tender (mildly tender in left lower quadrant ); no guarding and abdomen not rigid Skin: no rashes, warm and dry Psychiatric: A+Ox3, euthymic affect Results & Data Vital Signs (Past 12 Hours) Vital Signs Temp Pulse Pulse Resp BP BP Pulse Ox 03/19/19 15:51 82 03/19/19 14:56 36.4 C L 73 18 133/86 96 03/19/19 14:11 78 18 145/89 H 94 03/19/19 13:22 83 96 03/19/19 13:21 83 18 150/87 H 96 03/19/19 12:18 36.9 C 131 H 18 154/76 H 98 PG Care Time/CCT Total # of Minutes Spent Total Time Spent with Patient: Total time spent is greater than 50% in coordination of care (as documented) at patient's floor/unit and/or counseling patient: Coding Level of Care Code 57126 Inpt Consult Level 2 Diagnoses Abscess of sigmoid colon K63.0 Diverticulitis K57.92
[2019-03-19] MEDS: HYDROmorphone INJ 0.5 MG/0.5 ML SYR IV PRN ×2 (18:28→21:42)
[2019-03-19] MEDS: HEPARIN SOD 5,000 UNIT/0.5 ML VIAL SQ SCH (21:44)
[2019-03-19] MEDS: ATORVASTATIN 20 MG TAB PO SCH (21:44)
[2019-03-19] MEDS: PANTOprazole 40 MG TAB PO SCH (21:45)
[2019-03-19] MEDS: metroNIDAZOLE 500 MG/100 ML BAG IV SCH (21:51)
[2019-03-20] MEDS: HYDROmorphone INJ 0.5 MG/0.5 ML SYR IV PRN ×7 (00:19→22:06)
[2019-03-20] MEDS: NSS + 20MEQ KCL 20 MEQ/1,000 ML BAG IV SCH ×3 (00:58→20:56)
[2019-03-20] MEDS: CIPROFLOXACIN 400 MG/200 ML BAG IV SCH ×2 (01:56→14:14)
[2019-03-20] MEDS: metroNIDAZOLE 500 MG/100 ML BAG IV SCH ×3 (05:42→22:10)
[2019-03-20] MEDS: INSULIN ASPART 100 UNITS/ML 3 ML PEN SC SCH ×4 (06:20→21:01)
[2019-03-20 06:52] LABS: Basophils # (auto) 0.02 K/uL (0-0.2); Basophils % (auto) 0.2 %; Eosinophils # (auto) 0.06 K/uL (0-0.5); Eosinophils % (auto) 0.7 %; Hematocrit (blood only) 42.2 % (42-52); Immature Granulocytes # (auto) 0.01 K/uL (0.00-0.02); Immature Granulocytes % (auto) 0.1 %; Lymphocytes # (auto) 1.35 K/uL (1.2-3.4); Lymphocytes % (auto) 16.2 %; Mean Corpuscular Hemoglobin 30.9 pg (25-34); Mean Corpuscular Hgb Conc 33.2 g/dL (32-36); Mean Corpuscular Volume 93.2 fL (80-100); Mean Platelet Volume 10.9 fL (7.4-10.4); Monocytes # (auto) 0.48 K/uL (0.11-0.59); Monocytes % (auto) 5.8 %; Neutrophils # (auto) 6.42 K/uL (1.4-6.5); Platelet Count 165 K/uL (130-400); RDW Coefficient of Variation 13.5 % (11.5-14.5); RDW Standard Deviation 46.1 fL (36.4-46.3); Red Blood Count 4.53 M/uL (4.7-6.1); White Blood Count 8.34 K/uL (4.8-10.8)
[2019-03-20 07:24] LABS: BUN Creatinine Ratio 8.8 (10-20); Calcium 8.1 mg/dl (8.5-10.1); Creatinine Clr Calc Pharmacy 105.4 ml/min; Est GFR (African American) 96.6; Est GFR (Non-African American) 83.3; Potassium 4.1 mmol/L (3.5-5.1)
[2019-03-20 07:27] LABS: Albumin Globulin Ratio 0.9 (0.9-2); Bilirubin,Total 0.9 mg/dl (0.2-1); Globulin 3.4 gm/dl (2.5-4.0); Total Protein 6.4 gm/dl (6.4-8.2)
[2019-03-20] MEDS: HEPARIN SOD 5,000 UNIT/0.5 ML VIAL SQ SCH ×2 (08:03→20:58)
[2019-03-20] MEDS: PANTOprazole 40 MG TAB PO SCH ×2 (08:03→20:59)
[2019-03-20] MEDS: GABAPENTIN 100 MG CAP PO SCH ×3 (08:03→21:00)
--- NOTE | 2019-03-20 09:26 | Surgery Progress Note ---
Date of Service March 20, 2019 Assessment & Plan (1) Diverticulitis: 53-year-old male with diverticulitis and small phlegmon versus abscess. No indication for surgery at this time. No surgical intervention indicated at this time Continue IV antibiotics Repeat labs tomorrow Clear liquids today We will likely advance to low fiber diet starting tomorrow If develops fevers, increasing leukocytosis, or worsening symptoms, then recommend repeat CT scan Upon discharge patient should follow-up to discuss possible elective sigmoidectomy Surgery will follow Subjective 53-year-old male admitted with diverticulitis with small phlegmon versus abscess. Overall he is feeling better, some minimal discomfort in his left lower abdomen and flank. He has had a few episodes in the past, the first a few years ago requiring inpatient admission for up to 5 days. He had a colonoscopy 1 to [address] Lopez that showed diverticulosis but no tumors. He has been passing gas. Denies any fevers. Physical Exam Constitutional: WD/WN, vitals as above Gastrointestinal (Abdomen): Percussion/Palpation: + abdomen tender (Minimal tenderness to palpation in the left lower quadrant) and abdomen soft; no guarding, abdomen not rigid and no hepatosplenomegaly Results & Data Vital Signs (Past 12 Hours) Vital Signs Temp Pulse Pulse Resp BP Pulse Ox 03/20/19 07:39 36.6 C 75 18 149/85 H 94 03/20/19 03:52 37 C 70 16 95 03/19/19 23:25 37 C 75 18 128/80 94 03/19/19 22:20 76 Laboratory Results Laboratory Results - last 24 hr 03/19/19 03/19/19 03/19/19 12:30 12:30 12:30 WBC 12.39 H RBC 5.00 Hgb 15.6 Hct 45.3 MCV 90.6 MCH 31.2 MCHC 34.4 RDW Std Deviation 43.8 RDW Coeff of Nelly 13.4 Plt Count 186 MPV 10.7 H Immature Gran % (Auto) 0.2 Neut % (Auto) 78.3 Lymph % (Auto) 15.9 [place] % (Auto) 5.2 Eos % (Auto) 0.3 Baso % (Auto) 0.1 Immature Gran # (Auto) 0.02 Neut # (Auto) 9.71 H Lymph # (Auto) 1.97 [place] # (Auto) 0.64 H Eos # (Auto) 0.04 Baso # (Auto) 0.01 Sodium 136 Potassium 3.8 Chloride 106 Carbon Dioxide 25 Anion Gap 6.0 BUN 10 Creatinine 1.03 Est Cr Clr Drug Dosing 103.3 Est GFR ( Amer) 94.3 Est GFR (Non-Af Amer) 81.4 BUN/Creatinine Ratio 9.5 L Glucose 195 H POC Glucose Estimat Average Glucose Hemoglobin A1c Calcium 8.6 Total Bilirubin 0.9 AST 12 L ALT 40 Alkaline Phosphatase 64 NT-Pro-B Natriuret Pep 24 Total Protein 7.3 Albumin 3.8 Globulin 3.5 Albumin/Globulin Ratio 1.1 Triglycerides Cholesterol LDL Cholesterol, Calc VLDL Cholesterol, Calc HDL Cholesterol Cholesterol/HDL Ratio Lipase 98 TSH 2.510 03/19/19 03/19/19 03/19/19 16:02 18:14 23:32 WBC RBC Hgb Hct MCV MCH MCHC RDW Std Deviation RDW Coeff of Nelly Plt Count MPV Immature Gran % (Auto) Neut % (Auto) Lymph % (Auto) [place] % (Auto) Eos % (Auto) Baso % (Auto) Immature Gran # (Auto) Neut # (Auto) Lymph # (Auto) [place] # (Auto) Eos # (Auto) Baso # (Auto) Sodium Potassium Chloride Carbon Dioxide Anion Gap BUN Creatinine Est Cr Clr Drug Dosing Est GFR ( Amer) Est GFR (Non-Af Amer) BUN/Creatinine Ratio Glucose POC Glucose 125 H 91 100 H Estimat Average Glucose Hemoglobin A1c Calcium Total Bilirubin AST ALT Alkaline Phosphatase NT-Pro-B Natriuret Pep Total Protein Albumin Globulin Albumin/Globulin Ratio Triglycerides Cholesterol LDL Cholesterol, Calc VLDL Cholesterol, Calc HDL Cholesterol Cholesterol/HDL Ratio Lipase TSH 03/20/19 03/20/19 03/20/19 05:46 06:25 06:25 WBC 8.34 RBC 4.53 L Hgb 14.0 Hct 42.2 MCV 93.2 MCH 30.9 MCHC 33.2 RDW Std Deviation 46.1 RDW Coeff of Nelly 13.5 Plt Count 165 MPV 10.9 H Immature Gran % (Auto) 0.1 Neut % (Auto) 77.0 Lymph % (Auto) 16.2 [place] % (Auto) 5.8 Eos % (Auto) 0.7 Baso % (Auto) 0.2 Immature Gran # (Auto) 0.01 Neut # (Auto) 6.42 Lymph # (Auto) 1.35 [place] # (Auto) 0.48 Eos # (Auto) 0.06 Baso # (Auto) 0.02 Sodium 139 Potassium 4.1 Chloride 107 Carbon Dioxide 28 Anion Gap 4.0 BUN 9 Creatinine 1.01 Est Cr Clr Drug Dosing 105.4 Est GFR ( Amer) 96.6 Est GFR (Non-Af Amer) 83.3 BUN/Creatinine Ratio 8.8 L Glucose 127 H POC Glucose 116 H Estimat Average Glucose Hemoglobin A1c Calcium 8.1 L Total Bilirubin 0.9 AST 14 L ALT 31 Alkaline Phosphatase 54 NT-Pro-B Natriuret Pep Total Protein 6.4 Albumin 3.0 L Globulin 3.4 Albumin/Globulin Ratio 0.9 Triglycerides 61 Cholesterol 81 LDL Cholesterol, Calc 25 VLDL Cholesterol, Calc 12 HDL Cholesterol 44 Cholesterol/HDL Ratio 2 Lipase TSH 03/20/19 06:25 WBC RBC Hgb Hct MCV MCH MCHC RDW Std Deviation RDW Coeff of Nelly Plt Count MPV Immature Gran % (Auto) Neut % (Auto) Lymph % (Auto) [place] % (Auto) Eos % (Auto) Baso % (Auto) Immature Gran # (Auto) Neut # (Auto) Lymph # (Auto) [place] # (Auto) Eos # (Auto) Baso # (Auto) Sodium Potassium Chloride Carbon Dioxide Anion Gap BUN Creatinine Est Cr Clr Drug Dosing Est GFR ( Amer) Est GFR (Non-Af Amer) BUN/Creatinine Ratio Glucose POC Glucose Estimat Average Glucose Pending Hemoglobin A1c Pending Calcium Total Bilirubin AST ALT Alkaline Phosphatase NT-Pro-B Natriuret Pep Total Protein Albumin Globulin Albumin/Globulin Ratio Triglycerides Cholesterol LDL Cholesterol, Calc VLDL Cholesterol, Calc HDL Cholesterol Cholesterol/HDL Ratio Lipase TSH PG Care Time/CCT Total # of Minutes Spent Total Time Spent with Patient: Total time spent is greater than 50% in coordination of care (as documented) at patient's floor/unit and/or counseling patient: Coding Level of Care Code 95668 Subseq Hosp Care Lvl 2 Diagnoses Diverticulitis K57.92
[2019-03-20] MEDS: KETOROLAC 30 MG/ML VIAL IV PRN ×2 (10:35→16:26)
--- NOTE | 2019-03-20 10:54 | Hospitalist Progress Note ---
Date of Service March 20, 2019 Assessment & Plan (1) Abscess of sigmoid colon: - CT A/P showed 1.5 cm abscess along sigmoid colon along with intraperitoneal free air indicating perforation and trace free fluid in pelvis. - General surgery following, appreciate input. No indication for surgical intervention. - Advance to [facility]D per surgery; on IV fluids at 100 cc/hr. - Cipro/Flagyl IV for empiric coverage of diverticulitis/intra-abd abscess. - Tylenol and Toradol prn mild pain; Dilaudid 0.5 mg IV q4hr prn severe pain. - Phenergan prn nausea/vomiting. (2) Diverticulitis: - Acute sigmoid diverticulitis as noted above; currently on Cipro/Flagyl. - Will need f/u colonoscopy in 4-6 weeks. (3) GERD (gastroesophageal reflux disease): - PPI BID. (4) Diabetes mellitus, type 2: - Holding home oral agents. - Hgb A1C is pending. - Pharmacy consulted for glycemic management. (5) Hyperlipidemia: - Atorvastatin 20 mg daily. (6) Hepatic steatosis: - Noted on CT A/P. - Encourage weight loss and exercise; continue home statin. (7) Pulmonary nodule: - 8 mm RLL pulm nodule noted on CT; was similar compared to Jan 2017. - Recommend non-emergent f/u with pulmonary. (8) DVT prophylaxis: - SCDs; Heparin q12hr. Dispo: Med/surg; discharge pending improvement in diverticulitis and abd pain. Subjective Pt. c/o LLQ pain, has been using Dilaudid 0.5 mg IV q2hr frequently and requested increase in narcotic dose. Discussed pain management options and encouraged him to use Toradol IV prn doses. He rates pain as a 5/10 on pain scale. C/o decreased appetite and loss of sleep. Last BM was yesterday, was formed and non-bloody. Review of Systems Review of Systems: All systems reviewed & are unremarkable except as noted in HPI & below Constitutional: + fatigue, + weakness and + anorexia; no fever and no chills Respiratory: no cough, no dyspnea and no dyspnea on exertion Cardiovascular: no chest pain, no palpitations and no edema Gastrointestinal: + abdominal pain and + bloating; no nausea, no vomiting, no constipation, no diarrhea/loose stools, no blood in stools and no melena Genitourinary: no difficulty urinating Musculoskeletal: no back pain and no joint pain Integumentary: no non-healing lesions Physical Exam Physical Exam: General: Resting comfortably HEENT: NC/AT; PERRLA with EOMI; [place] conjunctiva, MMM. No erythema of posterior pharynx Neck: Supple and nontender Cardiac: RRR Lungs: CTA bilaterally Abdomen: Bowel normoactive X 4; TTP in LLQ Extremities: Warm. No edema present Neuro: No focal weakness Skin: No rash Results & Data Vital Signs (Past 12 Hours) Vital Signs Temp Pulse Pulse Resp BP Pulse Ox 03/20/19 09:00 73 03/20/19 07:39 36.6 C 75 18 149/85 H 94 03/20/19 03:52 37 C 70 16 95 03/19/19 23:25 37 C 75 18 128/80 94 Laboratory Results 03/20/19 03/20/19 03/20/19 Range/Units 11:30 06:25 06:25 WBC (4.8-10.8) K/uL RBC (4.7-6.1) M/uL Hgb (14.0-18.0) g/dL Hct (42-52) % MCV (80-100) fL MCH (25-34) pg MCHC (32-36) g/dL RDW Std Deviation (36.4-46.3) fL RDW Coeff of Nelly (11.5-14.5) % Plt Count (130-400) K/uL MPV (7.4-10.4) fL Immature Gran % (Auto) % Neut % (Auto) % Lymph % (Auto) % [place] % (Auto) % Eos % (Auto) % Baso % (Auto) % Immature Gran # (Auto) (0.00-0.02) K/uL Neut # (Auto) (1.4-6.5) K/uL Lymph # (Auto) (1.2-3.4) K/uL [place] # (Auto) (0.11-0.59) K/uL Eos # (Auto) (0-0.5) K/uL Baso # (Auto) (0-0.2) K/uL Sodium 139 (136-145) mmol/L Potassium 4.1 (3.5-5.1) mmol/L Chloride 107 (98-107) mmol/L Carbon Dioxide 28 (21-32) mmol/L Anion Gap 4.0 (3-11) BUN 9 (7-18) mg/dl Creatinine 1.01 (0.6-1.4) mg/dl Est Cr Clr Drug Dosing 105.4 ml/min Est GFR ( Amer) 96.6 Est GFR (Non-Af Amer) 83.3 BUN/Creatinine Ratio 8.8 L (10-20) Glucose 127 H (70-99) mg/dl POC Glucose 208 H (70-99) mg/dl Estimat Average Glucose Pending Hemoglobin A1c Pending Calcium 8.1 L (8.5-10.1) mg/dl Total Bilirubin 0.9 (0.2-1) mg/dl AST 14 L (15-37) U/L ALT 31 (12-78) U/L Alkaline Phosphatase 54 (45-117) U/L NT-Pro-B Natriuret Pep (0-900) pg/ml Total Protein 6.4 (6.4-8.2) gm/dl Albumin 3.0 L (3.4-5.0) gm/dl Globulin 3.4 (2.5-4.0) gm/dl Albumin/Globulin Ratio 0.9 (0.9-2) Triglycerides 61 (0-150) mg/dl Cholesterol 81 (0-200) mg/dl LDL Cholesterol, Calc 25 mg/dl VLDL Cholesterol, Calc 12 mg/dl HDL Cholesterol 44 mg/dl Cholesterol/HDL Ratio 2 Lipase (73-393) U/L TSH (0.300-4.500) uIu/ml 03/20/19 03/20/19 03/19/19 Range/Units 06:25 05:46 23:32 WBC 8.34 (4.8-10.8) K/uL RBC 4.53 L (4.7-6.1) M/uL Hgb 14.0 (14.0-18.0) g/dL Hct 42.2 (42-52) % MCV 93.2 (80-100) fL MCH 30.9 (25-34) pg MCHC 33.2 (32-36) g/dL RDW Std Deviation 46.1 (36.4-46.3) fL RDW Coeff of Nelly 13.5 (11.5-14.5) % Plt Count 165 (130-400) K/uL MPV 10.9 H (7.4-10.4) fL Immature Gran % (Auto) 0.1 % Neut % (Auto) 77.0 % Lymph % (Auto) 16.2 % [place] % (Auto) 5.8 % Eos % (Auto) 0.7 % Baso % (Auto) 0.2 % Immature Gran # (Auto) 0.01 (0.00-0.02) K/uL Neut # (Auto) 6.42 (1.4-6.5) K/uL Lymph # (Auto) 1.35 (1.2-3.4) K/uL [place] # (Auto) 0.48 (0.11-0.59) K/uL Eos # (Auto) 0.06 (0-0.5) K/uL Baso # (Auto) 0.02 (0-0.2) K/uL Sodium (136-145) mmol/L Potassium (3.5-5.1) mmol/L Chloride (98-107) mmol/L Carbon Dioxide (21-32) mmol/L Anion Gap (3-11) BUN (7-18) mg/dl Creatinine (0.6-1.4) mg/dl Est Cr Clr Drug Dosing ml/min Est GFR ( Amer) Est GFR (Non-Af Amer) BUN/Creatinine Ratio (10-20) Glucose (70-99) mg/dl POC Glucose 116 H 100 H (70-99) mg/dl Estimat Average Glucose Hemoglobin A1c Calcium (8.5-10.1) mg/dl Total Bilirubin (0.2-1) mg/dl AST (15-37) U/L ALT (12-78) U/L Alkaline Phosphatase (45-117) U/L NT-Pro-B Natriuret Pep (0-900) pg/ml Total Protein (6.4-8.2) gm/dl Albumin (3.4-5.0) gm/dl Globulin (2.5-4.0) gm/dl Albumin/Globulin Ratio (0.9-2) Triglycerides (0-150) mg/dl Cholesterol (0-200) mg/dl LDL Cholesterol, Calc mg/dl VLDL Cholesterol, Calc mg/dl HDL Cholesterol mg/dl Cholesterol/HDL Ratio Lipase (73-393) U/L TSH (0.300-4.500) uIu/ml 03/19/19 03/19/19 03/19/19 Range/Units 18:14 16:02 12:30 WBC (4.8-10.8) K/uL RBC (4.7-6.1) M/uL Hgb (14.0-18.0) g/dL Hct (42-52) % MCV (80-100) fL MCH (25-34) pg MCHC (32-36) g/dL RDW Std Deviation (36.4-46.3) fL RDW Coeff of Nelly (11.5-14.5) % Plt Count (130-400) K/uL MPV (7.4-10.4) fL Immature Gran % (Auto) % Neut % (Auto) % Lymph % (Auto) % [place] % (Auto) % Eos % (Auto) % Baso % (Auto) % Immature Gran # (Auto) (0.00-0.02) K/uL Neut # (Auto) (1.4-6.5) K/uL Lymph # (Auto) (1.2-3.4) K/uL [place] # (Auto) (0.11-0.59) K/uL Eos # (Auto) (0-0.5) K/uL Baso # (Auto) (0-0.2) K/uL Sodium (136-145) mmol/L Potassium (3.5-5.1) mmol/L Chloride (98-107) mmol/L Carbon Dioxide (21-32) mmol/L Anion Gap (3-11) BUN (7-18) mg/dl Creatinine (0.6-1.4) mg/dl Est Cr Clr Drug Dosing ml/min Est GFR ( Amer) Est GFR (Non-Af Amer) BUN/Creatinine Ratio (10-20) Glucose (70-99) mg/dl POC Glucose 91 125 H (70-99) mg/dl Estimat Average Glucose Hemoglobin A1c Calcium (8.5-10.1) mg/dl Total Bilirubin (0.2-1) mg/dl AST (15-37) U/L ALT (12-78) U/L Alkaline Phosphatase (45-117) U/L NT-Pro-B Natriuret Pep 24 (0-900) pg/ml Total Protein (6.4-8.2) gm/dl Albumin (3.4-5.0) gm/dl Globulin (2.5-4.0) gm/dl Albumin/Globulin Ratio (0.9-2) Triglycerides (0-150) mg/dl Cholesterol (0-200) mg/dl LDL Cholesterol, Calc mg/dl VLDL Cholesterol, Calc mg/dl HDL Cholesterol mg/dl Cholesterol/HDL Ratio Lipase (73-393) U/L TSH 2.510 (0.300-4.500) uIu/ml 03/19/19 03/19/19 Range/Units 12:30 12:30 WBC 12.39 H (4.8-10.8) K/uL RBC 5.00 (4.7-6.1) M/uL Hgb 15.6 (14.0-18.0) g/dL Hct 45.3 (42-52) % MCV 90.6 (80-100) fL MCH 31.2 (25-34) pg MCHC 34.4 (32-36) g/dL RDW Std Deviation 43.8 (36.4-46.3) fL RDW Coeff of Nelly 13.4 (11.5-14.5) % Plt Count 186 (130-400) K/uL MPV 10.7 H (7.4-10.4) fL Immature Gran % (Auto) 0.2 % Neut % (Auto) 78.3 % Lymph % (Auto) 15.9 % [place] % (Auto) 5.2 % Eos % (Auto) 0.3 % Baso % (Auto) 0.1 % Immature Gran # (Auto) 0.02 (0.00-0.02) K/uL Neut # (Auto) 9.71 H (1.4-6.5) K/uL Lymph # (Auto) 1.97 (1.2-3.4) K/uL [place] # (Auto) 0.64 H (0.11-0.59) K/uL Eos # (Auto) 0.04 (0-0.5) K/uL Baso # (Auto) 0.01 (0-0.2) K/uL Sodium 136 (136-145) mmol/L Potassium 3.8 (3.5-5.1) mmol/L Chloride 106 (98-107) mmol/L Carbon Dioxide 25 (21-32) mmol/L Anion Gap 6.0 (3-11) BUN 10 (7-18) mg/dl Creatinine 1.03 (0.6-1.4) mg/dl Est Cr Clr Drug Dosing 103.3 ml/min Est GFR ( Amer) 94.3 Est GFR (Non-Af Amer) 81.4 BUN/Creatinine Ratio 9.5 L (10-20) Glucose 195 H (70-99) mg/dl POC Glucose (70-99) mg/dl Estimat Average Glucose Hemoglobin A1c Calcium 8.6 (8.5-10.1) mg/dl Total Bilirubin 0.9 (0.2-1) mg/dl AST 12 L (15-37) U/L ALT 40 (12-78) U/L Alkaline Phosphatase 64 (45-117) U/L NT-Pro-B Natriuret Pep (0-900) pg/ml Total Protein 7.3 (6.4-8.2) gm/dl Albumin 3.8 (3.4-5.0) gm/dl Globulin 3.5 (2.5-4.0) gm/dl Albumin/Globulin Ratio 1.1 (0.9-2) Triglycerides (0-150) mg/dl Cholesterol (0-200) mg/dl LDL Cholesterol, Calc mg/dl VLDL Cholesterol, Calc mg/dl HDL Cholesterol mg/dl Cholesterol/HDL Ratio Lipase 98 (73-393) U/L TSH (0.300-4.500) uIu/ml PG Care Time/CCT Total # of Minutes Spent Total Time Spent with Patient: Total time spent is greater than 50% in coordination of care (as documented) at patient's floor/unit and/or counseling patient: Coding Level of Care Code 22396 Subseq Hosp Care Lvl 3 Diagnoses Abscess of sigmoid colon K63.0 Diverticulitis K57.92 GERD (gastroesophageal reflux disease) K21.9 Diabetes mellitus, type 2 E11.9 Hyperlipidemia E78.5 Hepatic steatosis K76.0 Pulmonary nodule R91.1 DVT prophylaxis Z29.9
--- NOTE | 2019-03-20 14:09 | Pharmacy Report ---
Pharmacy Glycemic Short Note 2 - Date of Service March 20, 2019 - Glycemic Short BSG Results (Last 24 hours): 03/19/19 03/19/19 03/19/19 16:02 18:14 23:32 Glucose POC Glucose 125 H 91 100 H 03/20/19 03/20/19 03/20/19 05:46 06:25 11:30 Glucose 127 H POC Glucose 116 H 208 H OUTPATIENT ANTIDIABETIC REGIMEN: * Glipzide, Metformin ASSESSMENT: * BSGs have been reasonable other than some mild hyperglycemia at lunch today. Diet was advanced from NPO to clears. PLAN FOR INPATIENT GLYCEMIC CONTROL: * Hold outpatient oral diabetes medications * Basal insulin * None indicated at this juncture, if BSGs remain elevated we will consider adding metabolic insulin * Bolus insulin * NovoLog per scale ACHS or Q6hrs while NPO * Goal Range: Low 110 mg/dL - High 140 mg/dL * Correction Factor: 20 mg/dL/unit * Nutritional / Prandial insulin per carb ratio of 1 unit per 7 grams CHO consumed
[2019-03-20] MEDS ORDERED: INSULIN GLARGINE SOLOSTAR 100 UNITS/ML 3 ML PEN SC ONE (16:30)
[2019-03-20] MEDS: ATORVASTATIN 20 MG TAB PO SCH (20:58)
[2019-03-21] MEDS: HYDROmorphone INJ 0.5 MG/0.5 ML SYR IV PRN (02:23)
[2019-03-21] MEDS: CIPROFLOXACIN 400 MG/200 ML BAG IV SCH (02:23)
[2019-03-21] MEDS: metroNIDAZOLE 500 MG/100 ML BAG IV SCH ×2 (05:33→13:27)
[2019-03-21 06:01] LABS: Estimated Average Glucose 200 mg/dl; Hemoglobin A1C 8.6 % (4.5-5.6)
[2019-03-21] MEDS: NSS + 20MEQ KCL 20 MEQ/1,000 ML BAG IV SCH (06:23)
[2019-03-21] MEDS: KETOROLAC 30 MG/ML VIAL IV PRN ×3 (06:28→21:17)
[2019-03-21 07:20] LABS: Basophils # (auto) 0.02 K/uL (0-0.2); Basophils % (auto) 0.3 %; Eosinophils # (auto) 0.08 K/uL (0-0.5); Eosinophils % (auto) 1.1 %; Hematocrit (blood only) 43.5 % (42-52); Hemoglobin 14.6 g/dL (14.0-18.0); Immature Granulocytes # (auto) 0.01 K/uL (0.00-0.02); Immature Granulocytes % (auto) 0.1 %; Lymphocytes # (auto) 1.28 K/uL (1.2-3.4); Lymphocytes % (auto) 17.7 %; Mean Corpuscular Hemoglobin 30.6 pg (25-34); Mean Corpuscular Hgb Conc 33.6 g/dL (32-36); Mean Corpuscular Volume 91.2 fL (80-100); Mean Platelet Volume 10.7 fL (7.4-10.4); Monocytes # (auto) 0.42 K/uL (0.11-0.59); Monocytes % (auto) 5.8 %; Neutrophils # (auto) 5.42 K/uL (1.4-6.5); Platelet Count 160 K/uL (130-400); RDW Standard Deviation 43.4 fL (36.4-46.3); Red Blood Count 4.77 M/uL (4.7-6.1); White Blood Count 7.23 K/uL (4.8-10.8)
[2019-03-21 07:46] LABS: BUN Creatinine Ratio 7.6 (10-20); Calcium 8.7 mg/dl (8.5-10.1); Creatinine Clr Calc Pharmacy 110.6 ml/min; Est GFR (African American) 102.7; Est GFR (Non-African American) 88.6; Potassium 4.2 mmol/L (3.5-5.1)
[2019-03-21 07:49] LABS: Albumin Globulin Ratio 0.8 (0.9-2); Bilirubin,Total 0.8 mg/dl (0.2-1); Globulin 3.8 gm/dl (2.5-4.0); Total Protein 6.8 gm/dl (6.4-8.2)
[2019-03-21] MEDS: HEPARIN SOD 5,000 UNIT/0.5 ML VIAL SQ SCH ×2 (08:43→21:04)
[2019-03-21] MEDS: INSULIN ASPART 100 UNITS/ML 3 ML PEN SC SCH ×4 (08:44→21:07)
[2019-03-21] MEDS: GABAPENTIN 100 MG CAP PO SCH ×3 (08:44→21:03)
[2019-03-21] MEDS: PANTOprazole 40 MG TAB PO SCH ×2 (08:44→21:03)
[2019-03-21] MEDS ORDERED: INSULIN GLARGINE SOLOSTAR 100 UNITS/ML 3 ML PEN SC SCH (09:00)
--- NOTE | 2019-03-21 11:42 | Pharmacy Report ---
Glycemic Control Progress Note - Date of Service March 21, 2019 - Scope Glycemic Pharmacist consulted for glycemic control to write orders per [facility] inpatient glycemic control protocol. - Objective Accuchecks BSG(last 24 hours):: 03/20/19 03/20/19 03/21/19 17:04 20:23 07:01 Glucose 147 H POC Glucose 147 H 123 H 03/21/19 03/21/19 07:28 11:25 Glucose POC Glucose 132 H 172 H HbA1c:: Hemoglobin A1c 8.6 % (4.5-5.6) H 03/20/19 06:25 - Recent Pertinent Medications The patient is currently receiving: * Basal insulin: NONE * Correctional Insulin: Novolog Correction per scale ACHS Goal Range: Low 110 mg/dL - High 140 mg/dL Correction Factor: 20 mg/dL/unit * Prandial insulin: Per carb ratio of 1 unit per 7 grams CHO consumed - Outpatient Anti-Diabetic Meds Glipizide metformin - Assessment & Plan ASSESSMENT: * See progress note from 03/20/18 for more background info, in short: * Pt receiving SQ basal bolus insulin regimen for hyperglycemia secondary to baseline DM (outpatient regimen on hold) and infection (currently on IV ciprofloxacin and Flagyl) * Patient is currently receiving an average of 15 units of insulin per day * 0 units of basal insulin * 15 units of prandial/correctional insulin * BSGs ranging 116 - 208 mg/dl over the past 24hrs * Changes needed to insulin regimen: * AM Fasting BSG = 132 mg/dl. This is in goal range for patient based on inpatient targets and co-morbidities. It is slightly higher than yesterday. Start scheduled Lantus 15 units. * Post-prandial BSGs are controlled. Loosen CR/CR with starting of Lantus * Total daily dose = ~20-25 units. * Additional notes / comments: Continue to hold oral agents PLAN FOR INPATIENT GLYCEMIC CONTROL: * Oral Agents * Continue to hold outpatient oral diabetes medications. * Basal insulin * Lantus 15 units SQ qAM * Bolus insulin * NovoLog per scale ACHS or Q6hrs while NPO * Goal Range: Low 110 mg/dL - High 140 mg/dL * Correction Factor: 25 mg/dL/unit * Nutritional / Prandial insulin per carb ratio of 1 unit per 8 grams CHO consumed * Please note that the plan above was derived based on current level of insulin resistance and hospital stress. These recommendations are appropriate for inpatient admission only. Plan of care upon discharge will need to be reassessed to avoid potential outpatient hypo/hyperglycemia. Thank you.
--- NOTE | 2019-03-21 12:11 | Surgery Progress Note ---
Date of Service March 21, 2019 Assessment & Plan (1) Abscess of sigmoid colon: improving advance to full liquids, can have low fiber once bowels are moving outpatient f/u in a few weeks to discuss elective sigmoidectomy Subjective feels better, flatus but BM, tolerating clears Physical Exam Gastrointestinal (Abdomen): Inspection/Auscultation: abdomen not distended Percussion/Palpation: + abdomen tender (minimal LLQ) and abdomen soft Results & Data Vital Signs (Past 12 Hours) Vital Signs Temp Pulse Resp BP Pulse Ox 03/21/19 11:01 36.8 C 62 18 145/87 H 95 03/21/19 07:21 36.8 C 60 18 148/82 H 96 03/21/19 03:28 36.8 C 69 16 144/77 H 95 PG Care Time/CCT Total # of Minutes Spent Total Time Spent with Patient: Total time spent is greater than 50% in coordination of care (as documented) at patient's floor/unit and/or counseling patient: Coding Level of Care Code 71589 Subseq Hosp Care Lvl 1 Diagnoses Abscess of sigmoid colon K63.0
[2019-03-21] MEDS: DOCUSATE SODIUM 100 MG CAP PO SCH ×2 (13:59→21:03)
[2019-03-21] MEDS: POLYETHYLENE (MIRALAX) 17 GM PACK PO SCH (13:59)
--- NOTE | 2019-03-21 14:39 | Hospitalist Progress Note ---
Date of Service March 21, 2019 Assessment & Plan (1) Abscess of sigmoid colon: - CT A/P showed 1.5 cm abscess along sigmoid colon along with intraperitoneal free air indicating perforation and trace free fluid in pelvis. - General surgery following, appreciate input. No indication for surgical intervention. - Advanced to FLD; can advance to low residue diet if he has a BM. - Cipro/Flagyl PO for coverage of diverticulitis/intra-abd abscess. - Tylenol and Toradol prn mild pain; Dilaudid 0.5 mg IV q4hr prn severe pain. - Phenergan prn nausea/vomiting. (2) Diverticulitis: - Acute sigmoid diverticulitis as noted above; currently on Cipro/Flagyl. - Will need to f/u to discuss elective sigmoidoscopy. (3) GERD (gastroesophageal reflux disease): - PPI BID. (4) Diabetes mellitus, type 2: - Holding home oral agents. - Hgb A1C 8.6. - Pharmacy consulted for glycemic management. (5) Hyperlipidemia: - Atorvastatin 20 mg daily. (6) Hepatic steatosis: - Noted on CT A/P. - Encourage weight loss and exercise; continue home statin. (7) Pulmonary nodule: - 8 mm RLL pulm nodule noted on CT; was similar compared to Jan 2017. - Recommend non-emergent f/u with pulmonary. (8) DVT prophylaxis: - SCDs; Heparin q12hr. Dispo: Med/surg; discharge over next 24 hours if pt. has a BM and he is tolerating low residue diet. Subjective Pt. reports pain in LLQ is rated as a 2/10 on pain scale this morning. He has not had a BM yet. Is tolerating CLD, advanced to FLD for lunch. Plan to discharge tomorrow if he has a BM, can advance to low residue diet. Review of Systems Review of Systems: All systems reviewed & are unremarkable except as noted in HPI & below Constitutional: no fever, no chills, no fatigue, no weakness and no anorexia Respiratory: no cough, no dyspnea, no dyspnea on exertion and no wheezing Cardiovascular: no chest pain, no palpitations and no edema Gastrointestinal: + abdominal pain and + constipation; no nausea and no vomiting Genitourinary: no difficulty urinating Musculoskeletal: no back pain and no joint pain Integumentary: no non-healing lesions Physical Exam Physical Exam: General: Resting comfortably HEENT: NC/AT; PERRLA with EOMI; [place] conjunctiva, MMM. No erythema of posterior pharynx Neck: Supple and nontender Cardiac: RRR Lungs: CTA bilaterally Abdomen: Bowel normoactive X 4; tender to deep palpation in LLQ. Extremities: Warm. No edema present Neuro: No focal weakness Skin: No rash Results & Data Vital Signs (Past 12 Hours) Vital Signs Temp Pulse Resp BP Pulse Ox 03/21/19 11:01 36.8 C 62 18 145/87 H 95 03/21/19 07:21 36.8 C 60 18 148/82 H 96 03/21/19 03:28 36.8 C 69 16 144/77 H 95 Laboratory Results 03/21/19 03/21/19 03/21/19 Range/Units 11:25 07:28 07:01 WBC (4.8-10.8) K/uL RBC (4.7-6.1) M/uL Hgb (14.0-18.0) g/dL Hct (42-52) % MCV (80-100) fL MCH (25-34) pg MCHC (32-36) g/dL RDW Std Deviation (36.4-46.3) fL RDW Coeff of Nelly (11.5-14.5) % Plt Count (130-400) K/uL MPV (7.4-10.4) fL Immature Gran % (Auto) % Neut % (Auto) % Lymph % (Auto) % [place] % (Auto) % Eos % (Auto) % Baso % (Auto) % Immature Gran # (Auto) (0.00-0.02) K/uL Neut # (Auto) (1.4-6.5) K/uL Lymph # (Auto) (1.2-3.4) K/uL [place] # (Auto) (0.11-0.59) K/uL Eos # (Auto) (0-0.5) K/uL Baso # (Auto) (0-0.2) K/uL Sodium 136 (136-145) mmol/L Potassium 4.2 (3.5-5.1) mmol/L Chloride 105 (98-107) mmol/L Carbon Dioxide 27 (21-32) mmol/L Anion Gap 4.0 (3-11) BUN 7 (7-18) mg/dl Creatinine 0.96 (0.6-1.4) mg/dl Est Cr Clr Drug Dosing 110.6 ml/min Est GFR ( Amer) 102.7 Est GFR (Non-Af Amer) 88.6 BUN/Creatinine Ratio 7.6 L (10-20) Glucose 147 H (70-99) mg/dl POC Glucose 172 H 132 H (70-99) mg/dl Estimat Average Glucose mg/dl Hemoglobin A1c (4.5-5.6) % Calcium 8.7 (8.5-10.1) mg/dl Total Bilirubin 0.8 (0.2-1) mg/dl AST 15 (15-37) U/L ALT 27 (12-78) U/L Alkaline Phosphatase 59 (45-117) U/L Total Protein 6.8 (6.4-8.2) gm/dl Albumin 3.0 L (3.4-5.0) gm/dl Globulin 3.8 (2.5-4.0) gm/dl Albumin/Globulin Ratio 0.8 L (0.9-2) 03/21/19 03/20/19 03/20/19 Range/Units 07:01 20:23 17:04 WBC 7.23 (4.8-10.8) K/uL RBC 4.77 (4.7-6.1) M/uL Hgb 14.6 (14.0-18.0) g/dL Hct 43.5 (42-52) % MCV 91.2 (80-100) fL MCH 30.6 (25-34) pg MCHC 33.6 (32-36) g/dL RDW Std Deviation 43.4 (36.4-46.3) fL RDW Coeff of Nelly 13.0 (11.5-14.5) % Plt Count 160 (130-400) K/uL MPV 10.7 H (7.4-10.4) fL Immature Gran % (Auto) 0.1 % Neut % (Auto) 75.0 % Lymph % (Auto) 17.7 % [place] % (Auto) 5.8 % Eos % (Auto) 1.1 % Baso % (Auto) 0.3 % Immature Gran # (Auto) 0.01 (0.00-0.02) K/uL Neut # (Auto) 5.42 (1.4-6.5) K/uL Lymph # (Auto) 1.28 (1.2-3.4) K/uL [place] # (Auto) 0.42 (0.11-0.59) K/uL Eos # (Auto) 0.08 (0-0.5) K/uL Baso # (Auto) 0.02 (0-0.2) K/uL Sodium (136-145) mmol/L Potassium (3.5-5.1) mmol/L Chloride (98-107) mmol/L Carbon Dioxide (21-32) mmol/L Anion Gap (3-11) BUN (7-18) mg/dl Creatinine (0.6-1.4) mg/dl Est Cr Clr Drug Dosing ml/min Est GFR ( Amer) Est GFR (Non-Af Amer) BUN/Creatinine Ratio (10-20) Glucose (70-99) mg/dl POC Glucose 123 H 147 H (70-99) mg/dl Estimat Average Glucose mg/dl Hemoglobin A1c (4.5-5.6) % Calcium (8.5-10.1) mg/dl Total Bilirubin (0.2-1) mg/dl AST (15-37) U/L ALT (12-78) U/L Alkaline Phosphatase (45-117) U/L Total Protein (6.4-8.2) gm/dl Albumin (3.4-5.0) gm/dl Globulin (2.5-4.0) gm/dl Albumin/Globulin Ratio (0.9-2) 03/20/19 Range/Units 06:25 WBC (4.8-10.8) K/uL RBC (4.7-6.1) M/uL Hgb (14.0-18.0) g/dL Hct (42-52) % MCV (80-100) fL MCH (25-34) pg MCHC (32-36) g/dL RDW Std Deviation (36.4-46.3) fL RDW Coeff of Nelly (11.5-14.5) % Plt Count (130-400) K/uL MPV (7.4-10.4) fL Immature Gran % (Auto) % Neut % (Auto) % Lymph % (Auto) % [place] % (Auto) % Eos % (Auto) % Baso % (Auto) % Immature Gran # (Auto) (0.00-0.02) K/uL Neut # (Auto) (1.4-6.5) K/uL Lymph # (Auto) (1.2-3.4) K/uL [place] # (Auto) (0.11-0.59) K/uL Eos # (Auto) (0-0.5) K/uL Baso # (Auto) (0-0.2) K/uL Sodium (136-145) mmol/L Potassium (3.5-5.1) mmol/L Chloride (98-107) mmol/L Carbon Dioxide (21-32) mmol/L Anion Gap (3-11) BUN (7-18) mg/dl Creatinine (0.6-1.4) mg/dl Est Cr Clr Drug Dosing ml/min Est GFR ( Amer) Est GFR (Non-Af Amer) BUN/Creatinine Ratio (10-20) Glucose (70-99) mg/dl POC Glucose (70-99) mg/dl Estimat Average Glucose 200 mg/dl Hemoglobin A1c 8.6 H (4.5-5.6) % Calcium (8.5-10.1) mg/dl Total Bilirubin (0.2-1) mg/dl AST (15-37) U/L ALT (12-78) U/L Alkaline Phosphatase (45-117) U/L Total Protein (6.4-8.2) gm/dl Albumin (3.4-5.0) gm/dl Globulin (2.5-4.0) gm/dl Albumin/Globulin Ratio (0.9-2) PG Care Time/CCT Total # of Minutes Spent Total Time Spent with Patient: Total time spent is greater than 50% in coordination of care (as documented) at patient's floor/unit and/or counseling patient: Coding Level of Care Code 95568 Subseq Hosp Care Lvl 2 Diagnoses Abscess of sigmoid colon K63.0 Diverticulitis K57.92 GERD (gastroesophageal reflux disease) K21.9 Diabetes mellitus, type 2 E11.9 Hyperlipidemia E78.5 Hepatic steatosis K76.0 Pulmonary nodule R91.1 DVT prophylaxis Z29.9
[2019-03-21] MEDS: CIPROFLOXACIN 500 MG TAB PO SCH (21:03)
[2019-03-21] MEDS: metroNIDAZOLE 500 MG TAB PO SCH (21:03)
[2019-03-21] MEDS: METHYLCELLULOSE POWDER 454 GM JAR PO SCH (21:04)
[2019-03-21] MEDS: ATORVASTATIN 20 MG TAB PO SCH (21:07)
[2019-03-22] MEDS: metroNIDAZOLE 500 MG TAB PO SCH ×2 (05:27→13:06)
[2019-03-22] MEDS: METHYLCELLULOSE POWDER 454 GM JAR PO SCH ×2 (07:33→13:05)
[2019-03-22] MEDS: POLYETHYLENE (MIRALAX) 17 GM PACK PO SCH (07:33)
[2019-03-22] MEDS: PANTOprazole 40 MG TAB PO SCH (07:34)
[2019-03-22] MEDS: DOCUSATE SODIUM 100 MG CAP PO SCH (07:34)
[2019-03-22] MEDS: CIPROFLOXACIN 500 MG TAB PO SCH (07:35)
[2019-03-22] MEDS: GABAPENTIN 100 MG CAP PO SCH ×2 (07:35→13:05)
[2019-03-22 07:45] VITALS: BP 148/85; TEMP 98.4; O2SAT 95
[2019-03-22] MEDS: HEPARIN SOD 5,000 UNIT/0.5 ML VIAL SQ SCH (08:37)
[2019-03-22] MEDS: INSULIN ASPART 100 UNITS/ML 3 ML PEN SC SCH ×2 (08:38→12:59)
[2019-03-22] MEDS ORDERED: INSULIN GLARGINE SOLOSTAR 100 UNITS/ML 3 ML PEN SC SCH (09:00)
--- NOTE | 2019-03-22 11:01 | Surgery Progress Note ---
Date of Service March 22, 2019 Assessment & Plan (1) Abscess of sigmoid colon: low fiber lunch, likely home this afternoon complete 2 weeks abx f/u in clinic in 3-4 weeks to discuss surgery Subjective BM this morning, anticipating d/c today Physical Exam Gastrointestinal (Abdomen): Percussion/Palpation: + abdomen tender (minimal LLQ) and abdomen soft Results & Data Vital Signs (Past 12 Hours) Vital Signs Temp Pulse Resp BP Pulse Ox 03/22/19 07:43 36.9 C 75 20 148/85 H 95 03/21/19 23:14 36.4 C L 57 L 16 114/70 94 PG Care Time/CCT Total # of Minutes Spent Total Time Spent with Patient: Total time spent is greater than 50% in coordination of care (as documented) at patient's floor/unit and/or counseling patient: Coding Level of Care Code 05016 Subseq Hosp Care Lvl 1 Diagnoses Abscess of sigmoid colon K63.0
--- NOTE | 2019-03-22 11:20 | Pharmacy Report ---
Glycemic Control Progress Note - Date of Service March 22, 2019 - Scope Glycemic Pharmacist consulted for glycemic control to write orders per [facility] inpatient glycemic control protocol. - Objective Accuchecks BSG(last 24 hours):: 03/21/19 03/21/19 03/21/19 11:25 16:31 18:13 POC Glucose 172 H 144 H 221 H 03/21/19 03/22/19 20:15 07:30 POC Glucose 178 H 175 H HbA1c:: Hemoglobin A1c 8.6 % (4.5-5.6) H 03/20/19 06:25 - Recent Pertinent Medications The patient is currently receiving: * Basal insulin: Lantus 15 units every 24 hours * Correctional Insulin: Novolog Correction per scale ACHS Goal Range: Low 110 mg/dL - High 140 mg/dL Correction Factor: 25 mg/dL/unit * Prandial insulin: Per carb ratio of 1 unit per 8 grams CHO consumed - Outpatient Anti-Diabetic Meds Glipizide Metformin - Assessment & Plan ASSESSMENT: * See progress note from 03/20/19 for more background info, in short: * Pt receiving SQ basal bolus insulin regimen for hyperglycemia secondary to baseline DM (outpatient regimen on hold). On oral ciprofloxacin and Flagyl for diverticulitis. * Patient is currently receiving an average of 27 units of insulin per day * 15 units of basal insulin * 12 units of prandial/correctional insulin * BSGs ranging 132 - 178 mg/dl over the past 24hrs * Changes needed to insulin regimen: * AM Fasting BSG = 175 mg/dl. This is above goal range for patient based on inpatient targets and co-morbidities. Increase basal by 20%. * Post-prandial BSGs trended upwards a little yesterday. Tighten CR. * Total daily dose = ~35 units. PLAN FOR INPATIENT GLYCEMIC CONTROL: * Increasing Lantus to 18 units SQ qAM * Continuing correction factor of 25 mg/dl/unit * TIGHTENING carb ratio to 1 unit per 7 grams CHO consumed * Continuing goal range of Low 110 mg/dL - High 140 mg/dL RECOMMENDATIONS FOR DISCHARGE: * Patient's HbA1C is elevated. Recommend addition of Lantus 15 units daily. * D/C glipizide if glipizide ordered. * Continue metformin. * Please note that the plan above was derived based on current level of insulin resistance and hospital stress. These recommendations are appropriate for inpatient admission only. Plan of care upon discharge will need to be reassessed to avoid potential outpatient hypo/hyperglycemia. Thank you.
[2019-03-22 12:49] VITALS: PULSE 86
--- NOTE | 2019-03-22 15:26 | Discharge Summary ---
Date of Service March 22, 2019 Admission HPI Per Admitting Provider The patient is a 53 years old male with past medical history of hyperlipidemia, diabetes mellitus type 2, GERD, lumbar spondylosis, with herniation who presents to the emergency room with a complaint of left flank pain that has been ongoing for 2 days. Patient reports nothing improves his pain. Patient denies fever, chills, chest pain, shortness of breath, headache, syncope, near syncope, hematochezia, hematuria, melena. Labs are reviewed: Sodium 136, potassium 3.8, chloride 106, carbon dioxide 25, anion gap 6, BUN 10, creatinine 1.03, GFR 81.4, glucose 195, hemoglobin A1c 7.6, as of September 21, 2018, lactate 1.9, calcium 8.6, AST 12, ALT 40, alkaline phosphatase 64, albumin 3.8, globulin 3.5, lipase 98. Urine yellow with specific gravity of 1.0 33 with 3+ glucose and trace ketones. UA negative for blood negative for nitrates negative for bilirubin and negative for leukocyte esterase. Abdominal CT there is a moderate diverticulosis of the left colon with evidence of acute sigmoid diverticulitis. There are punctuate foci of intraperitoneal free air indicating perforation. A 1.5 cm abscess is suggested along the lateral margin of the sigmoid colon. Trace free fluid in the pelvis is likely on the reactive basis. Hepatic steatosis. There is a 8 mm right lower lobe pulmonary nodule. This has not been changed since February 16, 2017. Nonemergent follow-up with pulmonology is recommended. Decision was made to admit patient to [facility] on telemetry for perforated diverticulitis and large colon abscess. Admission Exam Per Admitting Provider Constitutional: WD/WN, vitals as above well developed and + obese Eyes: PERRL, conjunctivae normal, anicteric sclerae ENMT: external ear and nose normal, oropharynx normal Neck: trachea midline, no thyromegaly Respiratory: normal respiratory effort, lungs clear to auscultation Cardiovascular: RRR, no murmur, no edema Gastrointestinal (Abdomen): Inspection/Auscultation: + abdomen distended Percussion/Palpation: + abdomen tender and abdomen soft Pain is located at the left flank. Tender on palpation, otherwise abdomen soft. Musculoskeletal: no cyanosis or clubbing, extremities motor strength 5/5 Skin: no rashes, warm and dry Neurologic: patellar DTR's 2+ bilat, sensation intact Psychiatric: A+Ox3, euthymic affect Genitourinary: no testicular masses, no penis abnormality Lymphatic: no cervical or axillary lymphadenopathy Principal Diagnosis Acute sigmoid diverticulitis Discharge Exam General: Resting comfortably HEENT: NC/AT; PERRLA with EOMI; [place] conjunctiva, MMM. No erythema of posterior pharynx Neck: Supple and nontender Cardiac: RRR Lungs: CTA bilaterally Abdomen: Bowel normoactive X 4; tender to palpation in LLQ. Extremities: Warm. No edema present Neuro: No focal weakness Skin: No rash Discharge Data Allergies Allergy/AdvReac Type Severity Reaction Status Date / Time No Known Allergies Allergy Verified 03/19/19 13:19 Consultations 03/19/19 12:38 ED Decision to Admit Stat 03/19/19 14:35 Consult General Surgery Routine Hospital Course (1) Abscess of sigmoid colon: CT A/P showed 1.5 cm abscess along sigmoid colon along with intraperitoneal free air indicating perforation and trace free fluid in pelvis. General surgery following, appreciate input. No indication for surgical intervention. Advanced to low fiber diet, tolerated well prior to discharge. Cipro/Flagyl PO for coverage of diverticulitis/intra-abd abscess. Tylenol and Toradol prn mild pain; also used Dilaudid 0.5 mg IV q4hr prn severe pain (2) Diverticulitis: Acute sigmoid diverticulitis as noted above; on Cipro/Flagyl. Will need to f/u to discuss elective sigmoidoscopy. (3) GERD (gastroesophageal reflux disease): PPI BID. (4) Diabetes mellitus, type 2: Held home oral agents. Hgb A1C 8.6. Pharmacy consulted for glycemic management. Resumed home metformin and glipizide at discharge but recommend to f/u with PCP to discuss starting insulin. (5) Hyperlipidemia: Atorvastatin 20 mg daily. (6) Hepatic steatosis: Noted on CT A/P. Encouraged weight loss and exercise; continued home statin. (7) Pulmonary nodule: 8 mm RLL pulm nodule noted on CT; was similar compared to Jan 2017. Recommend non-emergent f/u with pulmonary. (8) DVT prophylaxis: SCDs; Heparin q12hr. Discharged to home on 03/22/19. Total Time Total Time Spent Total Time Spent (In Minutes): >30 minutes Total Time Includes: Examination of the Patient, Discharge Planning, Medication Reconciliation, Communication With Other Providers and Other Discharge Plan Discharge Items Patient Disposition: Home - Self-Care Reason For Visit: LT FLANK PAIN Discharge Diagnosis: Sigmoid Diverticulitis Condition on Discharge: Fair Goals: You have been hospitalized for an acute medical problem. During your stay at [facility], we have made an effort to correct the problem that brought you to the hospital while keeping you as comfortable as possible. Medications were used to bring your condition under control and your discharge instructions will include directions for any medications you should take after leaving the hospital. Please make sure you see your Primary Care Provider as part of your follow up plan. Activity: As commented below Exercise/Sports: Wait until after follow-up appointment Non-emergency contact: Primary Care Provider and Hotel Staff Member Call non-emergency contact if: you have any medication questions, your symptoms worsen and you have a fever Follow-up/Referrals: Claus Lopez DO [Physician] - 03/29/19 1:15 pm (Please, follow up at [facility] with Dr. Lopez's associate, Ester Calero PA-C, on ThursdayMarch 29 at 1:15 pm. *If you need to change this appointment, call the office at [phone].) Marcos Price DO, STEPHANIE [Physician] - (Call to make an appt in approx 3 weeks) Simon Cole MD [Primary Care Provider] - 03/24/19 2:30 pm (Please, follow up with Dr. Chema Waddell on March 24 at 2:30 pm. *If you need to change this appointment, call the office at [phone].) Diet: Carb Consistent or DM2 and Low Fiber Addtl Attending Provider Instructions: 1. Sigmoid Diverticulitis * Please continue Ciprofloxacin 500 mg twice daily and Flagyl 500 mg three times daily for treatment of diverticulitis. * Please continue low fiber diet at home as tolerated. * You will need to follow up with Dr. Lopez in the office to discuss indication for elective sigmoidectomy. * Please follow up with primary care provider as scheduled on 03/24/19. 2. Diabetes Mellitus * Continue home oral agents as prescribed. * Hemoglobin A1C is 8.6; discuss glycemic control with your PCP - consider addition of insulin for improved control at home. Pending Studies at Discharge: Yes Studies:: Blood cultures 03/19: negative (prelim) Stand-Alone Forms: My [facility] Medications and DC Order Prescriptions: New ciprofloxacin HCl 500 mg tablet 500 mg PO BID Qty: 14 RF: 0 metronidazole [Flagyl] 500 mg tablet 500 mg PO Q8H 8 Days Qty: 24 RF: 0 Continued naproxen sodium [Aleve] 220 mg tablet 220 mg PO BID PRN (Reason: Pain) RF: 0 atorvastatin [Lipitor] 20 mg Tablet 20 mg PO HS RF: 0 glipizide [Glucotrol] 10 mg Tablet 10 mg PO BID RF: 0 pantoprazole [Protonix] 40 mg Tablet,Delayed Release (Dr/Ec) 40 mg PO BID RF: 0 gabapentin [Neurontin] 100 mg Capsule 100 mg PO TID RF: 0 Reyna's Leg Cramps 2 - 3 tab sublingual Q4H MDD 6 doses PRN (Reason: Leg Cramps) RF: 0 metformin [Glucophage XR] 500 mg tablet extended release 24 hr 1,000 mg PO BID RF: 0 Discontinued amoxicillin-pot clavulanate [Augmentin] 875-125 mg tablet 1 tab PO TID 14 Days Qty: 42 RF: 0 Discharge Orders: Discharge Order (Routine); Ordered 03/22/19 Ordered By: Atiya Beyer/Other Patient Handouts: Diabetes Green [employer] Packer Complications, Diabetes Resources, Diabetes Healthy Meals, Diabetes Exercise Benefits, Diabetes Living Life, Diabetes Manage A1C Test Admission Data Admit Date/Time: 03/19/19 14:00 Attending Provider: Mauricio Frank Admit Provider: Dana Ray Primary Care Provider: Simon Cole Other Providers: Dana Ray ; Marcos Price Other Interventions: Discharge Summary Assessment (RN) Last Done: 03/22/19 12:48 Coding Level of Care Code D/C Day Management >30 mins Diagnoses Abscess of sigmoid colon K63.0 Diverticulitis K57.92 GERD (gastroesophageal reflux disease) K21.9 Diabetes mellitus, type 2 E11.9 Hyperlipidemia E78.5 Hepatic steatosis K76.0 Pulmonary nodule R91.1 DVT prophylaxis Z29.9
== END 2019-03-22 15:54 | disposition home or self-care (01) | DRG 392 ==
LOC: ED 12:14 → SUATTDRO 14:00 → 2W 14:00